=== PATIENT | male | born 1935 | race American Indian/Alaskan Native ===

== ENCOUNTER 2017-05-19 16:10 | Inpatient (IN) | payer MEDICARE ==
[2017-05-19] MEDS ORDERED: NACL 0.9% 1000 ML 1,000 ML IV ONE ×2 (17:17→18:51)
--- NOTE | 2017-05-19 17:27 | Emergency Department Report ---
ED General Adult HPI - General Chief complaint: Fall Stated complaint: BLEEDING / DISLODGED KEVIN Time Seen by Provider: 05/19/17 17:10 Source: family, EMS Mode of arrival: Stretcher Limitations: Altered Mental Status - History of Present Illness Initial comments: Patient is 82 years old male history of diabetes and BPH. Patient is living by himself. He called his daughter, that he is having generalized weakness and using falling a lot recently. Patient fell today and dislodged his Kevin catheter. He denied any fever, nausea or vomiting. - Related Data Allergies Allergy/AdvReac Type Severity Reaction Status Date / Time No Known Allergies Allergy Verified 05/19/17 16:46 ED Review of Systems ROS: Stated complaint: BLEEDING / DISLODGED KEVIN Other details as noted in HPI Comment: All other systems reviewed and negative Constitutional: denies: chills, fever Respiratory: denies: cough, orthopnea, shortness of breath, SOB with exertion, SOB at rest, stridor, wheezing Gastrointestinal: denies: abdominal pain, nausea, vomiting, diarrhea, constipation, hematemesis Genitourinary: denies: urgency, dysuria, frequency Neurological: weakness. denies: headache, numbness, paresthesias, confusion ED Past Medical Hx - Past Medical History Hx Diabetes: Yes Hx Renal Disease: Yes - Surgical History Additional Surgical History: KEVIN - Social History Smoking Status: Former Smoker Substance Use Type: None ED Physical Exam - General Limitations: Altered Mental Status General appearance: alert - Head Head exam: Present: atraumatic, normal inspection - Eye Eye exam: Present: normal appearance, PERRL - ENT ENT exam: Present: normal exam, normal orophraynx, mucous membranes moist - Neck Neck exam: Present: normal inspection, full ROM. Absent: meningismus - Respiratory Respiratory exam: Present: normal lung sounds bilaterally, decreased breath sounds. Absent: respiratory distress, wheezes, rales, rhonchi, accessory muscle use, prolonged expiratory - Cardiovascular Cardiovascular Exam: Present: regular rate, normal rhythm, normal heart sounds - GI/Abdominal GI/Abdominal exam: Present: soft, normal bowel sounds. Absent: distended, tenderness, guarding, rebound, rigid - Extremities Exam Extremities exam: Present: normal inspection, full ROM - Back Exam Back exam: Present: normal inspection, full ROM - Neurological Exam Neurological exam: Present: alert, oriented X3, CN II-XII intact - Skin Skin exam: Present: warm, intact, normal color ED Course Vital Signs 05/19/17 05/19/17 05/19/17 16:46 18:24 18:30 Temperature 97.5 F L Pulse Rate 97 H 118 H Respiratory 16 22 Rate Blood Pressure 129/68 133/76 126/77 Blood Pressure [Left] O2 Sat by Pulse 97 97 Oximetry 05/19/17 18:46 Temperature 98.9 F Pulse Rate 113 H Respiratory 23 Rate Blood Pressure Blood Pressure 139/67 [Left] O2 Sat by Pulse 98 Oximetry ED Medical Decision Making - Lab Data Result diagrams: 05/19/17 17:24 05/19/17 17:24 - EKG Data -: EKG Interpreted by Mt EKG shows normal: sinus rhythm Rate: tachycardia - EKG Data Interpretation: no acute changes - Medical Decision Making Discussed with Dr. Mg, I presented the patient to him, he agreed to admit the patient to his service. Critical care attestation.: If time is entered above; I have spent that time in minutes in the direct care of this critically ill patient, excluding procedure time. ED Disposition Clinical Impression: Acute renal failure, Sepsis Disposition: [id number] OP ADMIT IP TO THIS HOSP Is pt being admited?: Yes Condition: Stable Referrals: PRIMARY CARE, [Primary Care Provider] - 3-5 Days
[2017-05-19 17:59] LABS: Hematocrit 41.9 % (35.5-45.6); Hemoglobin 13.9 gm/dl (11.8-15.2); Mean Corpuscular HGB Conc 33 % (32-34); Mean Corpuscular Hemoglobin 29 pg (28-32); Mean Corpuscular Volume 89 fl (84-94); Platelet Count 242 K/mm3 (140-440); Red Blood Count 4.74 M/mm3 (3.65-5.03); Red Cell Distribution Width 14.6 % (13.2-15.2)
[2017-05-19 18:24] LABS: Albumin 2.8 g/dL (3.9-5); Calcium 8.1 mg/dL (8.4-10.2)
[2017-05-19 18:47] LABS: Basophils % (Manual) 0 % (0.0-1.8); Eosinophils % (Manual) 0 % (0.0-4.3); Total Cells Counted 100
[2017-05-19 18:48] LABS: Anisocytosis Few
[2017-05-19] MEDS ORDERED: SODIUM BICARBONATE 150 MEQ in NACL 0.9% 1000 ML 1,000 ML IV ONE ×2 (18:55→20:00)
[2017-05-19 18:57] LABS: Chol/HDL Ratio 5.8 %
[2017-05-19] MEDS ORDERED: ZOSYN/NS 3.375GM/50ML 3.375 GM/50 ML BAG IV SCH (19:00)
[2017-05-19] MEDS ORDERED: SODIUM BICARBONATE 150 MEQ in STERILE WATER 1,000 ML IV ONE (20:00)
[2017-05-19 21:12] LABS: Bilirubin,Urine NEG (Negative); Blood,Urine LG (Negative); Color,Urine Red (Yellow); Mucus,Urine 3+ /HPF; Urobilinogen,Urine < 2.0 mg/dL (<2.0)
[2017-05-19 21:13] LABS: RBC,Urine > 182.0 /HPF (0.0-6.0); WBC,Urine > 182.0 /HPF (0.0-6.0)
[2017-05-19 21:15] LABS: Creatinine,Urine < 4.2 mg/dL (0.1-20.0)
[2017-05-19] MEDS ORDERED: ZOSYN/NS 2.25 GM/50ML 2.25 GM/50 ML BAG IV SCH (22:00)
[2017-05-19] MEDS ORDERED: ZOFRAN IV PRN (22:15)
[2017-05-19] MEDS ORDERED: ROCEPHIN/NS 1 GM/50 ML 1 GM/50 ML BAG IV SCH (22:15)
--- NOTE | 2017-05-19 22:18 | History and Physical Report ---
History of Present Illness Date of examination: 05/19/17 History of present illness: This is a 82-year-old man with a history of hypertension, diabetes, BPH was brought to the emergency room for evaluation of generalized weakness and fall. He was found to have acute renal failure, is slowly and became dislodged and it was replaced in the emergency room. Urine is blood tinged. Patient is unable to give a history, unable to reach family. Review of systems very difficult to obtain PAST MEDICAL HISTORY: Hypertension, diabetes, BPH PAST SURGICAL HISTORY: Unknown SOCIAL HISTORY: Denies alcohol, tobacco, drugs FAMILY HISTORY: Unknown Medications and Allergies Allergies Allergy/AdvReac Type Severity Reaction Status Date / Time No Known Allergies Allergy Verified 05/19/17 16:46 Home Medications Medication Instructions Recorded Confirmed Last Taken Type No Known Home Medications [No 05/25/17 05/25/17 Unknown History Reported Home Medications] Active Meds: Active Medications Piperacillin Sod/Tazobactam Sod (Zosyn/Ns 2.25 Gm/50ml) 2.25 gm in 50 mls @ 100 mls/hr IV Q8HR EVY Sodium Chloride (Nacl 0.9% 1000 Ml) 1,000 mls @ 250 mls/hr IV ONCE ONE Stop: 05/19/17 22:50 Last Admin: 05/19/17 19:02 Dose: 250 mls/hr Sodium Bicarbonate 150 meq/ (Sterile Water) 1,150 mls @ 100 mls/hr IV ONCE.ED ONE Stop: 05/20/17 07:29 Last Admin: 05/19/17 21:20 Dose: 100 mls/hr Exam - Physical Exam Narrative exam: Gen. appearance: Patient lying in bed, no apparent distress HEENT: Normocephalic, atraumatic, pupils equally round and reactive to light, extraocular movement intact, and no sclericterus,. No JVD or thyromegaly or nodule,neck supple, no carotid bruit ,mucous membranes moist, no exudate or erythema Heart: S1, S2, regular rate and rhythm Lungs: Clear to auscultation bilaterally, breathing comfortable Abdomen: Positive bowel sounds, nontender, nondistended, no organomegaly Extremity1+ edema, no cyanosis, clubbing Skin: No rash, nodules, warm, dry Neuro: Oriented 3, cranial nerves II-12 intact, speech is fluent, motor and sensory intact - Constitutional Vitals: Temp Pulse Resp BP Pulse Ox 97.8 F 117 H 16 132/68 100 05/19/17 20:12 05/19/17 22:01 05/19/17 20:12 05/19/17 22:01 05/19/17 22:01 Results - Labs CBC & Chem 7: 05/26/17 06:05 05/26/17 06:05 Labs: Abnormal lab results 05/19/17 05/19/17 05/19/17 Range/Units 17:24 17:24 17:24 WBC 13.8 H (4.5-11.0) K/mm3 Seg Neuts % (Manual) 85.0 H (40.0-70.0) % Lymphocytes % (Manual) 6.0 L (13.4-35.0) % Monocytes % (Manual) 9.0 H (0.0-7.3) % Seg Neutrophils # Man 11.7 H (1.8-7.7) K/mm3 Lymphocytes # (Manual) 0.8 L (1.2-5.4) K/mm3 Monocytes # (Manual) 1.2 H (0.0-0.8) K/mm3 Sodium 133 L (137-145) mmol/L Chloride 90.1 L (98-107) mmol/L Carbon Dioxide 12 L (22-30) mmol/L BUN 99 H (9-20) mg/dL Creatinine 6.9 H (0.8-1.5) mg/dL Glucose 355 H (75-100) mg/dL Lactic Acid 3.40 H* (0.7-2.0) mmol/L Calcium 8.1 L (8.4-10.2) mg/dL Troponin T (0.00-0.029) ng/mL NT-Pro-B Natriuret Pep (0-900) pg/mL Albumin 2.8 L (3.9-5) g/dL Triglycerides (2-149) mg/dL HDL Cholesterol (40-59) mg/dL Urine pH (5.0-7.0) Urine WBC (Auto) (0.0-6.0) /HPF 05/19/17 05/19/17 05/19/17 Range/Units 17:24 17:24 20:12 WBC (4.5-11.0) K/mm3 Seg Neuts % (Manual) (40.0-70.0) % Lymphocytes % (Manual) (13.4-35.0) % Monocytes % (Manual) (0.0-7.3) % Seg Neutrophils # Man (1.8-7.7) K/mm3 Lymphocytes # (Manual) (1.2-5.4) K/mm3 Monocytes # (Manual) (0.0-0.8) K/mm3 Sodium (137-145) mmol/L Chloride (98-107) mmol/L Carbon Dioxide (22-30) mmol/L BUN (9-20) mg/dL Creatinine (0.8-1.5) mg/dL Glucose (75-100) mg/dL Lactic Acid (0.7-2.0) mmol/L Calcium (8.4-10.2) mg/dL Troponin T 0.181 H* (0.00-0.029) ng/mL NT-Pro-B Natriuret Pep 4670 H (0-900) pg/mL Albumin (3.9-5) g/dL Triglycerides 160 H (2-149) mg/dL HDL Cholesterol 26 L (40-59) mg/dL Urine pH 8.0 H (5.0-7.0) Urine WBC (Auto) > 182.0 H (0.0-6.0) /HPF Assessment and Plan Renal ultrasound pending Assessment Sepsis UTI Acute renal failure Abnormal cardiac enzymes BPH Hypertension Diabetes Plan Admit to medicine renal territory sales consultant to see the patient, he was started on a bicarbonate drip Start IV Rocephin, follow cultures Check cardiac enzymes, echo Check fingerstick initiate insulin sliding scale DVT prophylaxis Addendum Ultrasound shows moderate to severe hydronephrosis Urology consult, case d/w Dr Ponce, he requested CT abdomen/pelvis
[2017-05-19] MEDS ORDERED: NACL 0.45% 1000 ML 1,000 ML IV SCH (23:00)
[2017-05-19] MEDS: cefTRIAXone 1 GM in NACL 0.9% 20 ML IV SCH (23:02)
--- NOTE | 2017-05-19 23:16 | XRay Report ---
FINAL REPORT PROCEDURE: Portable upright AP view TECHNIQUE: Chest radiograph portable upright AP view. CPT 36818 HISTORY: Dyspnea COMPARISON: No prior studies are available for comparison. FINDINGS: The heart is magnified due to projection although appears to be enlarged. Pulmonary vasculature is not distended. Lungs are hypoventilated. There is mild blunting of the left lateral costophrenic angle suggesting small left effusion or pleural scarring. No focal infiltrates or masses are seen. No acute bony abnormalities are identified. IMPRESSION: Cardiomegaly. Small left effusion versus scarring left lateral costophrenic angle. Lungs are hypoventilated..
--- NOTE | 2017-05-20 00:03 | Ultrasound Report ---
FINAL REPORT EXAM: US RENAL BILAT HISTORY: Acute renal failure. TECHNIQUE: Routine sonographic evaluation was obtained of the kidneys and bladder. FINDINGS: The right kidney measures 14 cm x 5.7 cm x 10.6 cm. The cortical thickness is 2.6 cm. There are 2 cortical cysts in the lateral and mid aspect of the right kidney the larger measuring 4 cm x 4.2 cm x 6.3 cm. There is moderate right-sided hydronephrosis with the proximal right ureter measuring 16.2 mm in diameter. The left kidney measures 12.9 cm from pole to pole with cortical thickness of 1.4 cm. There is extensive shadowing calcifications in the left kidney without evidence of hydronephrosis. The bladder is normal in size. The bladder wall is hyperechoic suggesting calcifications. There is a Valle catheter in the bladder. IMPRESSION: Moderate to severe right-sided hydronephrosis. Two cortical cyst in the right kidney as described. Extensive shadowing calcifications in left kidney. No evidence of left-sided hydronephrosis. The bladder wall shows extensive hyperechoic foci suggesting calcifications.
[2017-05-20] MEDS ORDERED: LOPRESSOR IV ONE (02:27)
[2017-05-20] MEDS: TYLENOL PO PRN (02:35)
[2017-05-20 06:44] LABS: Calcium 7.6 mg/dL (8.4-10.2)
--- NOTE | 2017-05-20 07:27 | Consultation ---
History of Present Illness - Reason for Consult Consult date: 05/20/17 acute renal failure, hypokalemia, metabolic acidosis - History of Present Illness The patient is a 82-year-old male with a history of Hypertension, Diabetes BPH and chronic indwelling beltre was brought to the emergency room for evaluation of generalized weakness and fall. Unable to obtain any history from the patient at this time and there was no family member available at the bedside. Information obtained from previous documentation. He was found to have acute kidney injury with creatinine of 6.9 and bicarb 12. Prior renal function is unknown. The beltre was changed in the ER. Past History Past Medical History: diabetes, hypertension, other (BPH) Medications and Allergies Allergies Allergy/AdvReac Type Severity Reaction Status Date / Time No Known Allergies Allergy Verified 05/19/17 16:46 Active Meds: Active Medications Acetaminophen (Tylenol) 650 mg PO Q4H PRN PRN Reason: Pain MILD(1-3)/Fever >100.5/VIERA Last Admin: 05/20/17 02:35 Dose: 650 mg Sodium Bicarbonate 150 meq/ (Sterile Water) 1,150 mls @ 100 mls/hr IV ONCE.ED ONE Stop: 05/20/17 07:29 Last Admin: 05/19/17 21:20 Dose: 100 mls/hr Sodium Chloride (Nacl 0.45% 1000 Ml) 1,000 mls @ 75 mls/hr IV DIRECT EVY Last Admin: 05/19/17 23:03 Dose: 75 mls/hr Ceftriaxone Sodium 1 gm/ (Sodium Chloride) 20 mls @ 2 mls/min IV Q24HR@2200 EVY Last Admin: 05/19/17 23:02 Dose: 2 mls/min Ondansetron HCl (Zofran) 4 mg IV Q8H PRN PRN Reason: Nausea And Vomiting Review of Systems ROS unobtainable: due to mental status Exam - Vital Signs Vital signs: Vital Signs Temp Pulse Resp BP Pulse Ox 97.5 F L 97 H 16 129/68 97 05/19/17 16:46 05/19/17 16:46 05/19/17 16:46 05/19/17 16:46 05/19/17 16:46 - General Appearance General appearance: well-developed, appears stated age, other (no distress) EENT: ATNC, PERRL, hearing intact Neck: Present: neck supple, trachea midline Respiratory: Clear to Ascultation Heart: regular, S1S2, no murmurs Gastrointestinal: Present: normoactive bowel sounds. Absent: tenderness Integumentary: no rash, chronic venous stasis Neurologic: confused, disoriented, other (able to move all 4 extremities) Musculoskeletal: Present: other (bialteral LE edema noted) Psychiatric: cooperative Results - Lab Results 05/19/17 17:24 05/20/17 05:52 Most recent lab results Calcium 7.6 mg/dL (8.4-10.2) L 05/20/17 05:52 Urine Creatinine < 4.2 mg/dL (0.1-20.0) 05/19/17 20:12 Urine Sodium 127 mmol/L 05/19/17 20:12 - Image Kidney/bladder ultrasound: report reviewed Assessment and Plan 1. Acute kidney injury: Likely from combination of dislodged Beltre and volume depletion. Very likely patient has some degree of CKD. Continue IV fluids. Renal prognosis guarded. 2. Metabolic acidosis: Continue IV bicarbonate. 3. Right sided Hydronephrosis: Urology consulted. 4. UTI / Urosepsis: On Ceftriaxone. 5. Paroxysmal atrial fibrillation/atrial flutter with RVR. 6. DM.
--- NOTE | 2017-05-20 07:50 | Cat Scan Report ---
CT abdomen and pelvis without contrast: Transverse images were obtained from the low chest and ischium with coronal and sagittal 2-D reformatted images. The visualized lung bases are clear. Coronary vascular calcifications are noted. Scattered calcifications are noted in the spleen most likely from prior granulomatous infection. Some scattered calcifications also noted in the partially fatty replaced pancreas. The unopacified bowel and mesentery appear grossly normal. There is a 5.6 cm cyst involving the right kidney with a daughter cyst laterally. The there is mild hydroureter of the right collecting system. There is moderate hydroureter of the left collecting system with mild dilatation of the renal pelvis. There is gas in both ureters. Imaging of the bladder demonstrates an irregularly thickened wall with a gas/fluid layer. Layering calcifications are noted centrally and on the dependent wall. The bones are generally demineralized. Significant degenerative changes are present in multiple levels of the lumbar spine. Impressions: The findings are consistent with a gas-forming infection involving the urinary tract. No obvious obstructive uropathy.
--- NOTE | 2017-05-20 09:11 | Progress Note ---
Assessment and Plan Sepsis UTI Hydronephrosis right sided Acute renal failure Abnormal cardiac enzymes BPH Hypertension Diabetes AFib/ Flutter Gross hematuraia with indwelling Valle cather medhat could not be removed in the ER Plan Renal consulted to see the patient, he was started on a bicarbonate drip IV Rocephin, follow blood and urine cultures Check cardiac enzymes, echo SSI with consistent CHO diet Discussed with pt daughter at length Commence pt on Amiodorone. Cardiogy consulted. D/w Dr Costello Urology consulted for Urinary obstruction, inability to remove Valle's and hydroneophrosis DVT prophylaxis SCD only. Hold anticoagulation b/c gross hematuria Subjective Date of service: 05/20/17 Principal diagnosis: sepsis, ARF Interval history: no fever, chest pain or shortness of breath Objective - Constitutional Vitals: Vital Signs - 12hr 05/19/17 05/19/17 05/19/17 21:15 21:30 21:45 Temperature Pulse Rate 116 H 124 H 116 H Respiratory Rate Blood Pressure 130/64 129/74 129/74 Blood Pressure [Left] O2 Sat by Pulse 98 100 98 Oximetry 05/19/17 05/19/17 05/19/17 22:01 22:07 22:11 Temperature Pulse Rate 117 H 111 H 112 H Respiratory Rate Blood Pressure 132/68 132/68 132/68 Blood Pressure [Left] O2 Sat by Pulse 100 98 97 Oximetry 05/19/17 05/19/17 05/19/17 22:21 22:30 22:41 Temperature Pulse Rate 111 H 159 H 112 H Respiratory Rate Blood Pressure 138/63 148/70 148/70 Blood Pressure [Left] O2 Sat by Pulse 80 L 97 99 Oximetry 05/19/17 05/19/17 05/19/17 22:51 23:00 23:03 Temperature 97.2 F L Pulse Rate 110 H 116 H 113 H Respiratory 16 Rate Blood Pressure 155/91 137/74 Blood Pressure 155/91 [Left] O2 Sat by Pulse 98 99 100 Oximetry 05/19/17 05/20/17 05/20/17 23:11 02:36 03:00 Temperature 98.5 F Pulse Rate 131 H 131 H Respiratory Rate Blood Pressure 137/74 152/75 Blood Pressure 152/75 [Left] O2 Sat by Pulse 99 Oximetry 05/20/17 05/20/17 05/20/17 03:40 03:58 07:07 Temperature 98.4 F Pulse Rate 113 H 120 H 113 H Respiratory Rate Blood Pressure 115/47 Blood Pressure 110/58 [Left] O2 Sat by Pulse 97 Oximetry 05/20/17 07:38 Temperature 98.0 F Pulse Rate 121 H Respiratory 20 Rate Blood Pressure 113/60 Blood Pressure [Left] O2 Sat by Pulse 96 Oximetry General appearance: Present: no acute distress, well-nourished - EENT Eyes: PERRL, EOM intact - Neck Neck: supple, normal ROM - Respiratory Respiratory effort: normal Respiratory: bilateral: CTA - Cardiovascular Rhythm: regular Heart Sounds: Present: S1 & S2. Absent: gallop, rub Extremities: pulses intact, No edema, normal color, Full ROM - Gastrointestinal General gastrointestinal: Present: soft, non-tender, non-distended, normal bowel sounds - Integumentary Integumentary: clear, warm, dry - Musculoskeletal Musculoskeletal: 1, strength equal bilaterally - Neurologic Neurologic: moves all extremities - Psychiatric Psychiatric: memory intact, appropriate mood/affect, intact judgment & insight - Labs CBC & Chem 7: 05/19/17 17:24 05/20/17 05:52 Labs: Abnormal lab results 05/19/17 05/19/17 05/19/17 Range/Units 17:24 17:24 17:24 WBC 13.8 H (4.5-11.0) K/mm3 Seg Neuts % (Manual) 85.0 H (40.0-70.0) % Lymphocytes % (Manual) 6.0 L (13.4-35.0) % Monocytes % (Manual) 9.0 H (0.0-7.3) % Seg Neutrophils # Man 11.7 H (1.8-7.7) K/mm3 Lymphocytes # (Manual) 0.8 L (1.2-5.4) K/mm3 Monocytes # (Manual) 1.2 H (0.0-0.8) K/mm3 Sodium 133 L (137-145) mmol/L Potassium (3.6-5.0) mmol/L Chloride 90.1 L (98-107) mmol/L Carbon Dioxide 12 L (22-30) mmol/L BUN 99 H (9-20) mg/dL Creatinine 6.9 H (0.8-1.5) mg/dL Glucose 355 H (75-100) mg/dL Lactic Acid 3.40 H* (0.7-2.0) mmol/L Calcium 8.1 L (8.4-10.2) mg/dL Total Creatine Kinase (55-170) units/L Troponin T (0.00-0.029) ng/mL NT-Pro-B Natriuret Pep (0-900) pg/mL Albumin 2.8 L (3.9-5) g/dL Triglycerides (2-149) mg/dL HDL Cholesterol (40-59) mg/dL Urine pH (5.0-7.0) Urine WBC (Auto) (0.0-6.0) /HPF 05/19/17 05/19/17 05/19/17 Range/Units 17:24 17:24 20:12 WBC (4.5-11.0) K/mm3 Seg Neuts % (Manual) (40.0-70.0) % Lymphocytes % (Manual) (13.4-35.0) % Monocytes % (Manual) (0.0-7.3) % Seg Neutrophils # Man (1.8-7.7) K/mm3 Lymphocytes # (Manual) (1.2-5.4) K/mm3 Monocytes # (Manual) (0.0-0.8) K/mm3 Sodium (137-145) mmol/L Potassium (3.6-5.0) mmol/L Chloride (98-107) mmol/L Carbon Dioxide (22-30) mmol/L BUN (9-20) mg/dL Creatinine (0.8-1.5) mg/dL Glucose (75-100) mg/dL Lactic Acid (0.7-2.0) mmol/L Calcium (8.4-10.2) mg/dL Total Creatine Kinase (55-170) units/L Troponin T 0.181 H* (0.00-0.029) ng/mL NT-Pro-B Natriuret Pep 4670 H (0-900) pg/mL Albumin (3.9-5) g/dL Triglycerides 160 H (2-149) mg/dL HDL Cholesterol 26 L (40-59) mg/dL Urine pH 8.0 H (5.0-7.0) Urine WBC (Auto) > 182.0 H (0.0-6.0) /HPF 05/20/17 Range/Units 05:52 WBC (4.5-11.0) K/mm3 Seg Neuts % (Manual) (40.0-70.0) % Lymphocytes % (Manual) (13.4-35.0) % Monocytes % (Manual) (0.0-7.3) % Seg Neutrophils # Man (1.8-7.7) K/mm3 Lymphocytes # (Manual) (1.2-5.4) K/mm3 Monocytes # (Manual) (0.0-0.8) K/mm3 Sodium 130 L (137-145) mmol/L Potassium 3.3 L (3.6-5.0) mmol/L Chloride 91.8 L (98-107) mmol/L Carbon Dioxide 14 L (22-30) mmol/L BUN 102 H (9-20) mg/dL Creatinine 7.5 H (0.8-1.5) mg/dL Glucose 263 H (75-100) mg/dL Lactic Acid (0.7-2.0) mmol/L Calcium 7.6 L (8.4-10.2) mg/dL Total Creatine Kinase 196 H (55-170) units/L Troponin T (0.00-0.029) ng/mL NT-Pro-B Natriuret Pep (0-900) pg/mL Albumin (3.9-5) g/dL Triglycerides (2-149) mg/dL HDL Cholesterol (40-59) mg/dL Urine pH (5.0-7.0) Urine WBC (Auto) (0.0-6.0) /HPF
[2017-05-20] MEDS ORDERED: LOVENOX SUB-Q SCH (10:00)
[2017-05-20] MEDS ORDERED: K-DUR PO ONE (11:00)
[2017-05-20] MEDS ORDERED: CORDARONE PO SCH (12:00)
[2017-05-20] MEDS: SODIUM BICARBONATE 150 MEQ in STERILE WATER 1,000 ML IV SCH (13:20)
--- NOTE | 2017-05-20 13:55 | Consultation ---
History of Present Illness Consult date: 05/20/17 Requesting physician: KARO HART Consult reason: other (svt) History of present illness: The pt is an 82 YO male with a past medical history significant for DM, CKD, BPH and chronic indwelling Valle catheter. He is previously unknown to our practice. He presented with c/o generalized weakness and hematuria. Per pt's daughter, pt is living by himiself. Pt fell out of his bed yesterday due to weakness and was then noted to develop hematuria so they called EMS. Following arrival, pt was noted to have renal failure, mod to severe right-sided hydronephrosis, metabolic acidosis, UTI, sepsis. Pt also noted to have paroxysmal AFib/AFlutter with RVR on telemetry and thus cardiology has been consulted. Echo is pending. Pt denies any prior history of cardiac arrhythmias or any prior cardiac w/u. On evaluation, pt denies any chest pain, palpitations , n/v, diaphoresis, dizziness or syncope. Past History Past Medical History: diabetes, other (BPH, CKD, chronic Valle) Social history: Lives alone. denies: smoking, alcohol abuse, prescription drug abuse Medications and Allergies Allergies Allergy/AdvReac Type Severity Reaction Status Date / Time No Known Allergies Allergy Verified 05/19/17 16:46 Active Meds: Active Medications Acetaminophen (Tylenol) 650 mg PO Q4H PRN PRN Reason: Pain MILD(1-3)/Fever >100.5/[facility] Last Admin: 05/20/17 02:35 Dose: 650 mg Amiodarone HCl (Cordarone) 200 mg PO QDAY [facility] Last Admin: 05/20/17 13:12 Dose: 200 mg Ceftriaxone Sodium 1 gm/ (Sodium Chloride) 20 mls @ 2 mls/min IV Q24HR@2200 [facility] Last Admin: 05/19/17 23:02 Dose: 2 mls/min Sodium Bicarbonate 150 meq/ (Sterile Water) 1,150 mls @ 100 mls/hr IV DIRECT [facility] Last Admin: 05/20/17 13:20 Dose: 100 mls/hr Ondansetron HCl (Zofran) 4 mg IV Q8H PRN PRN Reason: Nausea And Vomiting Review of Systems Constitutional: weakness, no weight loss, no weight gain, no fever, no chills, no sweats Ears, nose, mouth and throat: no ear pain, no nose pain, no sinus pressure, no sinus pain Cardiovascular: no chest pain, no orthopnea, no palpitations, no rapid/ irregular heart beat, no edema, no syncope, no lightheadedness, no shortness of breath, no dyspnea on exertion, no high blood pressure Respiratory: no cough, no shortness of breath, no dyspnea on exertion, no congestion, no wheezing, no pain on inspiration Gastrointestinal: no abdominal pain, no nausea, no vomiting, no diarrhea, no constipation, no change in bowel habits Genitourinary Male: hematuria, no flank pain Musculoskeletal: no neck stiffness, no neck pain, no shooting arm pain, no arm numbness/tingling, no low back pain, no shooting leg pain, no leg numbness/ tingling, no redness of joints Integumentary: no rash, no pruritis, no redness, no sores, no wounds Neurological: no head injury, no paralysis, no weakness, no parathesias, no numbness, no tingling, no seizures, no syncope Psychiatric: no anxiety Endocrine: no cold intolerance, no heat intolerance Hematologic/Lymphatic: no easy bruising, no easy bleeding, no lymphadenopathy Allergic/Immunologic: no urticaria, no wheezing, no persistent infections Physical Examination Vital Signs Temp Pulse Resp BP Pulse Ox 97.5 F L 97 H 16 129/68 97 05/19/17 16:46 05/19/17 16:46 05/19/17 16:46 05/19/17 16:46 05/19/17 16:46 General appearance: no acute distress HEENT: Positive: PERRL, Normocephaly, Mucus Membranes Moist Neck: Positive: neck supple, trachea midline Cardiac: Positive: irregularly irregular, S1/S2, Tachycardia Lungs: Positive: Decreased Breath Sounds Neuro: Positive: Grossly Intact Abdomen: Positive: Soft. Negative: Tender Skin: Positive: Clear. Negative: Rash, Wound Musculoskeletal: No Fluid Collection, No Pain, Normal Range of Motion Extremities: Absent: edema Results 05/19/17 17:24 05/20/17 05:52 Cardiac Enzymes 05/19/17 Range/Units 17:24 AST 17 (5-40) units/L Lipids 05/19/17 Range/Units 17:24 Triglycerides 160 H (2-149) mg/dL Cholesterol 151 (50-199) mg/dL HDL Cholesterol 26 L (40-59) mg/dL Cholesterol/HDL Ratio 5.80 % CBC 05/19/17 Range/Units 17:24 WBC 13.8 H (4.5-11.0) K/mm3 RBC 4.74 (3.65-5.03) M/mm3 Hgb 13.9 (11.8-15.2) gm/dl Hct 41.9 (35.5-45.6) % Plt Count 242 (140-440) K/mm3 Comprehensive Metabolic Panel 05/19/17 05/20/17 Range/Units 17:24 05:52 Sodium 133 L 130 L (137-145) mmol/L Potassium 4.0 3.3 L (3.6-5.0) mmol/L Chloride 90.1 L 91.8 L (98-107) mmol/L Carbon Dioxide 12 L 14 L (22-30) mmol/L BUN 99 H 102 H (9-20) mg/dL Creatinine 6.9 H 7.5 H (0.8-1.5) mg/dL Glucose 355 H 263 H (75-100) mg/dL Calcium 8.1 L 7.6 L (8.4-10.2) mg/dL AST 17 (5-40) units/L ALT 13 (7-56) units/L Alkaline Phosphatase 59 (35-129) units/L Total Protein 6.5 (6.3-8.2) g/dL Albumin 2.8 L (3.9-5) g/dL - Imaging and Cardiology Echo: pending EKG: report reviewed, image reviewed EKG interpretations - Telemetry EKG Rhythm: Atrial Fibrillation - EKG Supraventricular dysrhythmia: atrial flutter Assessment and Plan Assessment: Paroxysmal atrial fibrillation/atrial flutter with RVR Acute renal failure on CKD Elevated troponin - ECG with no acute ischemic changes; pt denies chest pain; trending downwards; currently nonspecific Mod to severe right-sided hydronephrosis Generalized weakness UTI / sepsis Metabolic acidosis Hematuria - H/H currently stable BPH Chronic indwelling Valle Hypokalemia Plan: Check thyroid profile and serum Mg. Await echo. Cont to trend Patsy. Initiate amiodarone gtt. Cont tele. No systemic anticoagulation at this time in regards to AFib/AFlutter in setting of gross hematuria. Will readdress prior to hospital discharge. IV abx per primary. Assessment and plan reviewed with pt and pt's daughter at bedside. The patient has been seen in conjunction with Dr. Costello who agrees with the assessment and plan of care.
--- NOTE | 2017-05-20 14:36 | Progress Note ---
Assessment and Plan catheter changed lots of debris on cath poorly compliant Subjective Date of service: 05/20/17 Principal diagnosis: sepsis, ARF Objective - Constitutional Vitals: Vital Signs - 12hr 05/20/17 05/20/17 05/20/17 02:36 03:00 03:40 Temperature 98.5 F 98.4 F Pulse Rate 131 H 131 H 113 H Respiratory Rate Blood Pressure 152/75 Blood Pressure 152/75 110/58 [Left] O2 Sat by Pulse Oximetry 05/20/17 05/20/17 05/20/17 03:58 07:07 07:38 Temperature 98.0 F Pulse Rate 120 H 113 H 121 H Respiratory 20 Rate Blood Pressure 115/47 113/60 Blood Pressure [Left] O2 Sat by Pulse 97 96 Oximetry 05/20/17 05/20/17 09:55 12:14 Temperature 97.6 F Pulse Rate 93 H Respiratory 20 Rate Blood Pressure Blood Pressure 113/60 [Left] O2 Sat by Pulse 96 97 Oximetry General appearance: Present: no acute distress - Respiratory Respiratory effort: normal - Gastrointestinal General gastrointestinal: Present: soft, non-tender - Labs CBC & Chem 7: 05/19/17 17:24 05/20/17 05:52 Labs: Abnormal lab results 05/19/17 05/19/17 05/19/17 Range/Units 17:24 17:24 17:24 WBC 13.8 H (4.5-11.0) K/mm3 Seg Neuts % (Manual) 85.0 H (40.0-70.0) % Lymphocytes % (Manual) 6.0 L (13.4-35.0) % Monocytes % (Manual) 9.0 H (0.0-7.3) % Seg Neutrophils # Man 11.7 H (1.8-7.7) K/mm3 Lymphocytes # (Manual) 0.8 L (1.2-5.4) K/mm3 Monocytes # (Manual) 1.2 H (0.0-0.8) K/mm3 Sodium 133 L (137-145) mmol/L Potassium (3.6-5.0) mmol/L Chloride 90.1 L (98-107) mmol/L Carbon Dioxide 12 L (22-30) mmol/L BUN 99 H (9-20) mg/dL Creatinine 6.9 H (0.8-1.5) mg/dL Glucose 355 H (75-100) mg/dL Lactic Acid 3.40 H* (0.7-2.0) mmol/L Calcium 8.1 L (8.4-10.2) mg/dL Total Creatine Kinase (55-170) units/L Troponin T (0.00-0.029) ng/mL NT-Pro-B Natriuret Pep (0-900) pg/mL Albumin 2.8 L (3.9-5) g/dL Triglycerides (2-149) mg/dL HDL Cholesterol (40-59) mg/dL Urine pH (5.0-7.0) Urine WBC (Auto) (0.0-6.0) /HPF 05/19/17 05/19/17 05/19/17 Range/Units 17:24 17:24 20:12 WBC (4.5-11.0) K/mm3 Seg Neuts % (Manual) (40.0-70.0) % Lymphocytes % (Manual) (13.4-35.0) % Monocytes % (Manual) (0.0-7.3) % Seg Neutrophils # Man (1.8-7.7) K/mm3 Lymphocytes # (Manual) (1.2-5.4) K/mm3 Monocytes # (Manual) (0.0-0.8) K/mm3 Sodium (137-145) mmol/L Potassium (3.6-5.0) mmol/L Chloride (98-107) mmol/L Carbon Dioxide (22-30) mmol/L BUN (9-20) mg/dL Creatinine (0.8-1.5) mg/dL Glucose (75-100) mg/dL Lactic Acid (0.7-2.0) mmol/L Calcium (8.4-10.2) mg/dL Total Creatine Kinase (55-170) units/L Troponin T 0.181 H* (0.00-0.029) ng/mL NT-Pro-B Natriuret Pep 4670 H (0-900) pg/mL Albumin (3.9-5) g/dL Triglycerides 160 H (2-149) mg/dL HDL Cholesterol 26 L (40-59) mg/dL Urine pH 8.0 H (5.0-7.0) Urine WBC (Auto) > 182.0 H (0.0-6.0) /HPF 05/20/17 05/20/17 Range/Units 05:52 13:12 WBC (4.5-11.0) K/mm3 Seg Neuts % (Manual) (40.0-70.0) % Lymphocytes % (Manual) (13.4-35.0) % Monocytes % (Manual) (0.0-7.3) % Seg Neutrophils # Man (1.8-7.7) K/mm3 Lymphocytes # (Manual) (1.2-5.4) K/mm3 Monocytes # (Manual) (0.0-0.8) K/mm3 Sodium 130 L (137-145) mmol/L Potassium 3.3 L (3.6-5.0) mmol/L Chloride 91.8 L (98-107) mmol/L Carbon Dioxide 14 L (22-30) mmol/L BUN 102 H (9-20) mg/dL Creatinine 7.5 H (0.8-1.5) mg/dL Glucose 263 H (75-100) mg/dL Lactic Acid (0.7-2.0) mmol/L Calcium 7.6 L (8.4-10.2) mg/dL Total Creatine Kinase 196 H (55-170) units/L Troponin T 0.124 H* D (0.00-0.029) ng/mL NT-Pro-B Natriuret Pep (0-900) pg/mL Albumin (3.9-5) g/dL Triglycerides (2-149) mg/dL HDL Cholesterol (40-59) mg/dL Urine pH (5.0-7.0) Urine WBC (Auto) (0.0-6.0) /HPF
[2017-05-20] MEDS: CORDARONE 900 MG in D5W 482 ML IV SCH (17:00)
--- NOTE | 2017-05-20 19:39 | Consultation ---
HISTORY OF PRESENT ILLNESS: The patient is an 82-year-old gentleman who is here with his daughter. He had a catheter that they could not take out. There was some gas in the ureters, but he has a Valle and they tried to change it and tried to deflate the balloon. According to his daughter, he refused definitive treatment for the bladder outlet obstruction and was late noncompliant for catheter change. He is down at echo now. He has a renal cyst, right kidney, and hydroureteronephrosis, more on the left than the right. There is a thick bladder wall with some gas in the bladder, probably from irrigation or just chronic catheter that has not been changed with possible gas forming organism. He is not febrile at this point. His urine is blood-tinged dark and he is afebrile. PAST MEDICAL HISTORY: Apparently, he has had a catheter for 5 years, poorly compliant. He refuses manipulation. PAST SURGICAL HISTORY: Hypertension, diabetes, bladder outlet obstruction, and urinary retention. PAST SURGICAL HISTORY: Denied. SOCIAL HISTORY: Negative. FAMILY HISTORY: Noncontributory. ALLERGIES: Negative. REVIEW OF SYSTEMS: He looks as if he has had a little bit of a stroke. He slurred some of his speech. PHYSICAL EXAMINATION: GENERAL: He is awake. He is in no distress. ABDOMEN: Moderately overweight, soft, and nondistended. GENITALIA: He has a little blood around the catheter. The urine is khalil colored draining and the balloon was in the bladder with some calcium around it as can be seen on ultrasound. GENITALIA: He has moderately atrophic left testes, mild on the right. No hernias. RECTAL: I could not get him to turn over. He is undergoing an echo. IMPRESSION: Urinary retention. Catheter has not been changed. We were able to deflate the balloon and twist out the catheter covered with calcifications. So, he may have some sort of gas forming organism. There was a Proteus type of smell and Escherichia coli as well likely forming gas, may be anaerobes. A #20 [place] catheter was easily changed, the more difficult was removing the catheter. He tolerated the procedure well. PLAN: Follow up after echo. He refuses any type of manipulation at this point. So, we just changed the catheter hopefully, that his creatinine will get better now. JOB# [id number] NORMA/NTS
[2017-05-20] MEDS: cefTRIAXone 1 GM in NACL 0.9% 20 ML IV SCH (22:06)
[2017-05-21 07:21] LABS: Hematocrit 35.4 % (35.5-45.6); Mean Corpuscular HGB Conc 34 % (32-34); Mean Corpuscular Hemoglobin 29 pg (28-32); Mean Corpuscular Volume 86 fl (84-94); Platelet Count 201 K/mm3 (140-440); Red Cell Distribution Width 14.5 % (13.2-15.2)
--- NOTE | 2017-05-21 07:22 | Progress Note ---
Subjective Date of service: 05/21/17 Principal diagnosis: sepsis, ARF Objective - Vital Signs Vital signs: Vital Signs - 12hr 05/20/17 05/20/17 05/20/17 20:00 20:20 22:03 Temperature 98.5 F Pulse Rate 139 H 106 H Respiratory 20 Rate Blood Pressure 132/76 O2 Sat by Pulse 96 97 Oximetry 05/21/17 05/21/17 05/21/17 01:02 04:10 06:49 Temperature 97.4 F L 97.3 F L Pulse Rate 77 110 H 85 Respiratory 20 20 Rate Blood Pressure 148/88 179/104 172/91 O2 Sat by Pulse 98 97 98 Oximetry - Lab 05/19/17 17:24 05/20/17 05:52 Most recent lab results Calcium 7.6 mg/dL (8.4-10.2) L 05/20/17 05:52 Magnesium 1.70 mg/dL (1.7-2.3) 05/20/17 15:28 Urine Creatinine < 4.2 mg/dL (0.1-20.0) 05/19/17 20:12 Urine Sodium 127 mmol/L 05/19/17 20:12
[2017-05-21 07:31] LABS: Creatine Kinase MB 4.4 ng/mL (0.0-4.0)
[2017-05-21 07:33] LABS: INR 1.21 (0.87-1.13)
[2017-05-21 07:37] LABS: Albumin 1.8 g/dL (3.9-5); Calcium 7.3 mg/dL (8.4-10.2)
--- NOTE | 2017-05-21 09:25 | Event Note ---
Date: 05/21/17 Per daughter patient is being followed by . Informed to follow this patient.
[2017-05-21 09:39] LABS: Basophils % (Manual) 0 % (0.0-1.8); RBC Morphology Normal; Total Cells Counted 100
--- NOTE | 2017-05-21 09:56 | Progress Note ---
Assessment and Plan Sepsis from Gram negative rods UTI Hydronephrosis right sided Acute renal failure Abnormal cardiac enzymes BPH Hypertension Diabetes AFib/ Flutter Gross hematuraia with indwelling Valle catherter changed by Urologist 05/20/17 Plan Renal consulted to see the patient, he was started on a bicarbonate drip IV Rocephin, follow blood and urine cultures Check cardiac enzymes, echo SSI with consistent CHO diet Discussed with pt daughter at length Commence pt on Amiodorone. Cardiogy consulted. D/w Dr Costello Urology consulted for Urinary obstruction, inability to remove Valle's and hydroneophrosis DVT prophylaxis SCD only. Hold anticoagulation b/c gross hematuria Subjective Date of service: 05/21/17 Principal diagnosis: sepsis, ARF, Afib Interval history: no fever, chest pain or shortness of breath Objective - Constitutional Vitals: Vital Signs - 12hr 05/20/17 05/21/17 05/21/17 22:03 01:02 04:10 Temperature 97.4 F L 97.3 F L Pulse Rate 77 110 H Respiratory 20 20 Rate Blood Pressure 148/88 179/104 Blood Pressure [Left] O2 Sat by Pulse 97 98 97 Oximetry 05/21/17 05/21/17 06:49 07:47 Temperature 97.8 F Pulse Rate 85 98 H Respiratory 18 Rate Blood Pressure 172/91 Blood Pressure 153/72 [Left] O2 Sat by Pulse 98 97 Oximetry General appearance: Present: no acute distress, well-nourished - EENT Eyes: PERRL, EOM intact - Neck Neck: supple, normal ROM - Respiratory Respiratory effort: normal Respiratory: bilateral: CTA - Cardiovascular Rhythm: regular Heart Sounds: Present: S1 & S2. Absent: gallop, rub Extremities: pulses intact, No edema, normal color, Full ROM - Gastrointestinal General gastrointestinal: Present: soft, non-tender, non-distended, normal bowel sounds - Genitourinary Male genitourinary: normal - Integumentary Integumentary: clear, warm, dry - Musculoskeletal Musculoskeletal: 1, strength equal bilaterally - Neurologic Neurologic: moves all extremities - Psychiatric Psychiatric: memory intact, appropriate mood/affect, intact judgment & insight - Labs CBC & Chem 7: 05/21/17 06:27 05/21/17 06:27 Labs: Abnormal lab results 05/20/17 05/20/17 05/20/17 Range/Units 11:48 13:12 17:07 Hct (35.5-45.6) % Seg Neuts % (Manual) (40.0-70.0) % Lymphocytes % (Manual) (13.4-35.0) % Monocytes % (Manual) (0.0-7.3) % Seg Neutrophils # Man (1.8-7.7) K/mm3 Monocytes # (Manual) (0.0-0.8) K/mm3 PT (12.2-14.9) Sec. INR (0.87-1.13) Sodium (137-145) mmol/L Potassium (3.6-5.0) mmol/L Chloride (98-107) mmol/L Carbon Dioxide (22-30) mmol/L BUN (9-20) mg/dL Creatinine (0.8-1.5) mg/dL Glucose (75-100) mg/dL POC Glucose 276 H 382 H (70-105) Calcium (8.4-10.2) mg/dL Phosphorus (2.5-4.5) mg/dL CK-MB (CK-2) (0.0-4.0) ng/mL Troponin T 0.124 H* D (0.00-0.029) ng/mL Total Protein (6.3-8.2) g/dL Albumin (3.9-5) g/dL PTH Intact (15-65) pg/mL 05/20/17 05/21/17 05/21/17 Range/Units 21:55 06:27 06:27 Hct 35.4 L D (35.5-45.6) % Seg Neuts % (Manual) 77.0 H (40.0-70.0) % Lymphocytes % (Manual) 11.0 L (13.4-35.0) % Monocytes % (Manual) 11.0 H (0.0-7.3) % Seg Neutrophils # Man 8.4 H (1.8-7.7) K/mm3 Monocytes # (Manual) 1.2 H (0.0-0.8) K/mm3 PT (12.2-14.9) Sec. INR (0.87-1.13) Sodium 135 L (137-145) mmol/L Potassium 3.4 L (3.6-5.0) mmol/L Chloride 90.8 L (98-107) mmol/L Carbon Dioxide 17 L (22-30) mmol/L BUN 113 H (9-20) mg/dL Creatinine 7.5 H (0.8-1.5) mg/dL Glucose 333 H (75-100) mg/dL POC Glucose (70-105) Calcium 7.3 L (8.4-10.2) mg/dL Phosphorus 7.00 H (2.5-4.5) mg/dL CK-MB (CK-2) 4.4 H (0.0-4.0) ng/mL Troponin T 0.131 H* 0.113 H* (0.00-0.029) ng/mL Total Protein 6.2 L (6.3-8.2) g/dL Albumin 1.8 L (3.9-5) g/dL PTH Intact (15-65) pg/mL 05/21/17 05/21/17 Range/Units 06:27 06:27 Hct (35.5-45.6) % Seg Neuts % (Manual) (40.0-70.0) % Lymphocytes % (Manual) (13.4-35.0) % Monocytes % (Manual) (0.0-7.3) % Seg Neutrophils # Man (1.8-7.7) K/mm3 Monocytes # (Manual) (0.0-0.8) K/mm3 PT 16.0 H (12.2-14.9) Sec. INR 1.21 H (0.87-1.13) Sodium (137-145) mmol/L Potassium (3.6-5.0) mmol/L Chloride (98-107) mmol/L Carbon Dioxide (22-30) mmol/L BUN (9-20) mg/dL Creatinine (0.8-1.5) mg/dL Glucose (75-100) mg/dL POC Glucose (70-105) Calcium (8.4-10.2) mg/dL Phosphorus (2.5-4.5) mg/dL CK-MB (CK-2) (0.0-4.0) ng/mL Troponin T (0.00-0.029) ng/mL Total Protein (6.3-8.2) g/dL Albumin (3.9-5) g/dL PTH Intact 370.6 H (15-65) pg/mL
--- NOTE | 2017-05-21 11:43 | Progress Note ---
Assessment and Plan Assessment: Paroxysmal atrial fibrillation/atrial flutter with RVR Acute renal failure on CKD Elevated troponin - ECG with no acute ischemic changes; pt denies chest pain; currently nonspecific Mod to severe right-sided hydronephrosis Generalized weakness UTI / sepsis Metabolic acidosis Hematuria - H/H currently stable BPH Chronic indwelling Valle Hypokalemia Moderate pulm HTN - RVSP 53mmHg Plan: Echo reviewed - EF 50-55%, mild TR, mod pulm HTN with RVSP 53mmHg. Cont amiodarone gtt. Initiate PO lopressor. No systemic anticoagulation at this time in regards to AFib/AFlutter in setting of gross hematuria. Will readdress prior to hospital discharge. IV abx per primary. Assessment and plan reviewed with pt at bedside. The patient has been seen in conjunction with Dr. PRATIMA Mac who agrees with the assessment and plan of care. Subjective Date of service: 05/21/17 Principal diagnosis: sepsis, ARF, Afib Interval history: pt resting in bed, no current complaints. remains in AFib/AFlutter with RVR, HR 120s. BPs elevated. amio gtt infusing. Objective Last Vital Signs Temp 97.8 F 05/21/17 07:47 Pulse 71 05/21/17 07:47 Resp 18 05/21/17 07:47 BP 153/72 05/21/17 07:47 Pulse Ox 97 05/21/17 07:47 - Physical Examination General: No Apparent Distress HEENT: Positive: PERRL, Normocephaly, Mucus Membranes Moist Neck: Positive: neck supple, trachea midline Cardiac: Positive: irregularly irregular, S1/S2, Tachycardia Lungs: Positive: Decreased Breath Sounds Neuro: Positive: Grossly Intact Abdomen: Positive: Soft. Negative: Tender Skin: Positive: Clear. Negative: Rash, Wound Musculoskeletal: No Fluid Collection, No Pain, Normal Range of Motion Extremities: Absent: edema - Labs and Meds Cardiac Enzymes 05/21/17 Range/Units 06:27 AST 11 (5-40) units/L CK-MB (CK-2) 4.4 H (0.0-4.0) ng/mL Coagulation 05/21/17 Range/Units 06:27 PT 16.0 H (12.2-14.9) Sec. INR 1.21 H (0.87-1.13) CBC 05/21/17 Range/Units 06:27 WBC 10.9 (4.5-11.0) K/mm3 RBC 4.10 (3.65-5.03) M/mm3 Hgb 12.0 (11.8-15.2) gm/dl Hct 35.4 L D (35.5-45.6) % Plt Count 201 (140-440) K/mm3 Comprehensive Metabolic Panel 05/21/17 Range/Units 06:27 Sodium 135 L (137-145) mmol/L Potassium 3.4 L (3.6-5.0) mmol/L Chloride 90.8 L (98-107) mmol/L Carbon Dioxide 17 L (22-30) mmol/L BUN 113 H (9-20) mg/dL Creatinine 7.5 H (0.8-1.5) mg/dL Glucose 333 H (75-100) mg/dL Calcium 7.3 L (8.4-10.2) mg/dL AST 11 (5-40) units/L ALT 11 (7-56) units/L Alkaline Phosphatase 56 (35-129) units/L Total Protein 6.2 L (6.3-8.2) g/dL Albumin 1.8 L (3.9-5) g/dL - Imaging and Cardiology EKG: report reviewed, image reviewed Echo: pending
[2017-05-21] MEDS ORDERED: ATIVAN PO PRN (12:58)
[2017-05-21] MEDS: LOPRESSOR PO SCH ×2 (14:38→21:57)
--- NOTE | 2017-05-21 17:31 | Progress Note ---
Assessment and Plan Assessment: 1. Acute kidney injury superimposed on CKD stage 4, due to Rt hydronephrosis and UTI/sepsis. Baseline Cr around 2.87mg/dl in 05/2016 on last office visit with Dr Randhawa 2. Metabolic acidosis due RAMOS 3. UTI 4. Hypokalemia 5. Atrial fibrillation with RVR 6. Secondary hyperparathyroidism 7. metabolic encephalopathy Plan/recommendations: - cont IV bicarb for now - increased UOP noted s/p new beltre insertion/on IVF, however still with increased azotemia contributing to change of mental status. If no significant improvement of azotemia seen in AM will consider HD for uremic encephalopathy - supplementation with KDur - supportive care for RAMOS avoid nephrotoxins, NSAIDs, IV contrast - will monitor lytes/renal parameters and make further recommendations. D/w pt' s daughter. Subjective Date of service: 05/21/17 Principal diagnosis: sepsis, ARF, Afib Interval history: Pt is awake, confused, not oriented to place, time. in no acute respiratory distress. Objective - Vital Signs Vital signs: Vital Signs - 12hr 05/21/17 05/21/17 05/21/17 06:49 07:47 10:00 Temperature 97.8 F Pulse Rate 85 98 H Respiratory 18 Rate Blood Pressure 172/91 Blood Pressure 153/72 [Left] O2 Sat by Pulse 98 97 98 Oximetry 05/21/17 05/21/17 05/21/17 14:38 16:09 16:10 Temperature 98.7 F Pulse Rate 115 H 92 H 88 Respiratory 20 Rate Blood Pressure 134/68 138/89 Blood Pressure [Left] O2 Sat by Pulse 100 100 Oximetry - General Appearance General appearance: well-developed, well-nourished, appears stated age EENT: ATNC, PERRL, mucous membranes moist Neck: no JVD Respiratory: Present: Clear to Ascultation Cardiology: regular, S1S2 Gastrointestinal: normoactive bowel sounds, obese Integumentary: no rash, other (2+ edema b/l LE ) Neurologic: confused, disoriented - Lab 05/21/17 06:27 05/21/17 06:27 Most recent lab results Calcium 7.3 mg/dL (8.4-10.2) L 05/21/17 06:27 Phosphorus 7.00 mg/dL (2.5-4.5) H 05/21/17 06:27 Magnesium 1.80 mg/dL (1.7-2.3) 05/21/17 06:27 Urine Creatinine < 4.2 mg/dL (0.1-20.0) 05/19/17 20:12 Urine Sodium 127 mmol/L 05/19/17 20:12
[2017-05-21] MEDS ORDERED: KCL 30 MEQ in NACL 0.9% 250ML 300 ML IV ONE (18:00)
[2017-05-21] MEDS ORDERED: KCL 10MEQ/100ML 10 MEQ/100 ML BAG IV SCH (18:00)
[2017-05-21] MEDS: CORDARONE 900 MG in D5W 482 ML IV SCH (21:54)
[2017-05-21] MEDS: SODIUM BICARBONATE 150 MEQ in STERILE WATER 1,000 ML IV SCH (21:56)
[2017-05-21] MEDS: cefTRIAXone 1 GM in NACL 0.9% 20 ML IV SCH (21:57)
[2017-05-21] MEDS ORDERED: NOVOLOG SUB-Q SCH (23:20)
[2017-05-22] MEDS: HumaLOG SUB-Q SCH ×5 (01:09→22:48)
[2017-05-22 06:01] LABS: Hemoglobin 12.6 gm/dl (11.8-15.2); Mean Corpuscular HGB Conc 34 % (32-34); Mean Corpuscular Hemoglobin 29 pg (28-32); Mean Corpuscular Volume 86 fl (84-94); Platelet Count 206 K/mm3 (140-440); Red Blood Count 4.29 M/mm3 (3.65-5.03); Red Cell Distribution Width 14.5 % (13.2-15.2)
[2017-05-22 06:25] LABS: Albumin 1.8 g/dL (3.9-5); Calcium 7.3 mg/dL (8.4-10.2)
[2017-05-22 06:58] LABS: Anisocytosis 1+; Band Neutrophils # (Manual) 0.3 K/mm3; Basophils % (Manual) 0 % (0.0-1.8); Total Cells Counted 100
[2017-05-22 06:59] LABS: Platelet Estimate Consistent w Auto
[2017-05-22] MEDS ORDERED: NACL 0.9% 100 ML IV PRN ×3 (08:30→17:21)
[2017-05-22] MEDS ORDERED: NACL 0.9% 1000 ML 1,000 ML IV SCH (09:00)
[2017-05-22] MEDS ORDERED: HumaLOG SUB-Q ONE ×2 (10:00)
[2017-05-22 10:08] LABS: Myeloperoxidase Antibody <1.0 AI (<1.0)
[2017-05-22] MEDS: LOPRESSOR PO SCH ×3 (10:19→21:58)
--- NOTE | 2017-05-22 10:29 | Progress Note ---
Assessment and Plan Assessment: 1. Acute kidney injury superimposed on CKD stage 4, due to Rt hydronephrosis and UTI/sepsis. Baseline Cr around 2.87mg/dl in 05/2016 on last office visit with Dr Randhawa 2. Metabolic acidosis due RAMOS 3. UTI 4. Hypokalemia 5. Atrial fibrillation with RVR 6. Secondary hyperparathyroidism 7. metabolic encephalopathy Plan/recommendations: - pt with persistent confusion, suspect uremic encephalopathy. UOP increased however still with increased azotemia. Discussed with patient's daughter regarding temporary HD to correct uremic complication, discussed risks/benefits of HD, which daughter understands and agrees to it. Will consult vascular surgery for vascath placement and arrange HD thereafter. Plan for HD today and tomorrow. - supplementation with KDur - supportive care for RAMOS avoid nephrotoxins, NSAIDs, IV contrast - will monitor lytes/renal parameters and make further recommendations. D/w pt' s daughter. Subjective Date of service: 05/22/17 Principal diagnosis: sepsis, ARF, Afib Interval history: Pt is awake, confused, not oriented to place, time. in no acute respiratory distress. Objective - Vital Signs Vital signs: Vital Signs - 12hr 05/21/17 05/21/17 05/22/17 23:30 23:31 03:24 Temperature 98.5 F 97.4 F L Pulse Rate 87 84 90 Respiratory 18 18 Rate Blood Pressure 179/93 182/91 O2 Sat by Pulse 98 98 99 Oximetry 05/22/17 05/22/17 08:08 10:19 Temperature 98.2 F Pulse Rate 87 90 Respiratory 19 Rate Blood Pressure 168/93 166/90 O2 Sat by Pulse 100 Oximetry - General Appearance General appearance: well-developed, well-nourished, appears stated age EENT: ATNC, PERRL, mucous membranes moist Neck: no JVD Respiratory: Present: Clear to Ascultation Cardiology: regular, S1S2 Gastrointestinal: normoactive bowel sounds Integumentary: no rash, other (+2 edema ) Neurologic: no focal deficit, confused, disoriented, CN 3-12 intact - Lab 05/22/17 05:03 05/22/17 05:03 Most recent lab results Calcium 7.3 mg/dL (8.4-10.2) L 05/22/17 05:03 Phosphorus 7.00 mg/dL (2.5-4.5) H 05/21/17 06:27 Magnesium 1.90 mg/dL (1.7-2.3) 05/22/17 05:03 Urine Creatinine < 4.2 mg/dL (0.1-20.0) 05/19/17 20:12 Urine Sodium 127 mmol/L 05/19/17 20:12
--- NOTE | 2017-05-22 11:26 | Progress Note ---
Assessment and Plan Assessment: Paroxysmal atrial fibrillation/atrial flutter with RVR --> SR Acute renal failure on CKD - initiated on HD Elevated troponin - ECG with no acute ischemic changes; pt denies chest pain; currently nonspecific Mod to severe right-sided hydronephrosis Generalized weakness Persistent confusion - suspect uremic encephalopathy per nephrology UTI / sepsis Metabolic acidosis Hematuria - H/H currently stable BPH Chronic indwelling Valle Hypokalemia Moderate pulm HTN - RVSP 53mmHg Plan: Pt is for HD today. Pt has converted to SR. D/c amio gtt and initiate PO amio 400mg BID. Increase lopressor to 50mg PO BID for BP control. No systemic anticoagulation at this time in regards to AFib/AFlutter in setting of gross hematuria. Hematuria appears to be improving. Can consider AC if/when okay per urology and once mental status improves - pt it at high risk for falls at this time. The patient has been seen in conjunction with Dr. PRATIMA Mac who agrees with the assessment and plan of care. Subjective Date of service: 05/22/17 Principal diagnosis: sepsis, ARF, Afib Interval history: pt resting in bed, no current complaints. tele reviewed - pt has converted to SR with frequent PACs. pt confused. Objective Last Vital Signs Temp 98.2 F 05/22/17 08:08 Pulse 90 05/22/17 10:19 Resp 19 05/22/17 08:08 BP 166/90 05/22/17 10:19 Pulse Ox 100 05/22/17 08:08 - Physical Examination General: No Apparent Distress, Other (confused) HEENT: Positive: PERRL, Normocephaly, Mucus Membranes Moist Neck: Positive: neck supple, trachea midline Cardiac: Positive: Reg Rate and Rhythm, S1/S2 Lungs: Positive: clear to auscultation Neuro: Positive: Grossly Intact Abdomen: Positive: Soft. Negative: Tender Skin: Positive: Clear. Negative: Rash, Wound Musculoskeletal: No Fluid Collection, No Pain, Normal Range of Motion Extremities: Absent: edema - Labs and Meds Cardiac Enzymes 05/22/17 Range/Units 05:03 AST 12 (5-40) units/L CBC 05/22/17 Range/Units 05:03 WBC 8.9 (4.5-11.0) K/mm3 RBC 4.29 (3.65-5.03) M/mm3 Hgb 12.6 (11.8-15.2) gm/dl Hct 37.0 (35.5-45.6) % Plt Count 206 (140-440) K/mm3 Comprehensive Metabolic Panel 05/22/17 Range/Units 05:03 Sodium 137 (137-145) mmol/L Potassium 3.5 L (3.6-5.0) mmol/L Chloride 92.5 L (98-107) mmol/L Carbon Dioxide 22 (22-30) mmol/L BUN 119 H (9-20) mg/dL Creatinine 7.1 H (0.8-1.5) mg/dL Glucose 195 H (75-100) mg/dL Calcium 7.3 L (8.4-10.2) mg/dL AST 12 (5-40) units/L ALT 12 (7-56) units/L Alkaline Phosphatase 62 (35-129) units/L Total Protein 6.2 L (6.3-8.2) g/dL Albumin 1.8 L (3.9-5) g/dL - Imaging and Cardiology EKG: report reviewed, image reviewed Echo: pending
[2017-05-22 12:37] LABS: ANA Screen, IFA Negative (Negative)
[2017-05-22] MEDS: CORDARONE PO SCH ×2 (12:45→21:58)
--- NOTE | 2017-05-22 13:32 | Progress Note ---
Assessment and Plan Assessment and plan: Sepsis. Continue IV antibiotics. Etiology secondary to UTI/Escherichia coli bacteremia. Escherichia coli bacteremia. ID consultation. Atrial fibrillation with RVR. Pt has converted to SR. D/c amio gtt. cardiology will initiate PO amio 400mg BID and increase lopressor to 50mg PO BID for BP control. Cardiology recommended no systemic anticoagulation at this time in regards to AFib/AFlutter in setting of gross hematuria. Hydronephrosis right sided. Valle catheter changed. Urology following. 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 Etiology secondary to acute kidney injury superimposed CK-MB stage IV due to right hydronephrosis and UTI/sepsis. aseline Cr around 2.87mg/dl in 05/2016. Patient is status post catheter placement and hemodialysis. Follow BMP. Toxic metabolic encephalopathy. Etiology likely secondary to uremic encephalopathy and sepsis. Continue to treat underlying causes. Abnormal cardiac enzymes BPH. Per urology Hypertension. Continue antihypertensive medications as needed. Moderate pulmonary hypertension. Diabetes mellitus type II. Continue Accu-Cheks and slight scale insulin. Gross hematuria. As above. Patient with indwelling Valle catherter changed by Urologist 05/20/17 History Interval history: No new issues overnight. Hospitalist Physical - Constitutional Vitals: Temp Pulse Resp BP Pulse Ox 98.2 F 78 19 160/76 97 05/22/17 12:11 05/22/17 12:45 05/22/17 12:11 05/22/17 12:45 05/22/17 12:11 General appearance: Present: no acute distress, well-nourished - EENT Eyes: Present: PERRL, EOM intact ENT: hearing intact, clear oral mucosa, dentition normal - Neck Neck: Present: supple, normal ROM - Respiratory Respiratory effort: normal Respiratory: bilateral: CTA - Cardiovascular Rhythm: regular Heart Sounds: Present: S1 & S2. Absent: gallop, rub - Extremities Extremities: no ischemia, No edema, Full ROM - Abdominal General gastrointestinal: soft, non-tender, non-distended, normal bowel sounds - Integumentary Integumentary: Present: clear, warm, dry - Neurologic Neurologic: CNII-XII intact, moves all extremities Results - Labs CBC & Chem 7: 05/22/17 05:03 05/22/17 05:03 Labs: Laboratory Last Values WBC 8.9 K/mm3 (4.5-11.0) 05/22/17 05:03 RBC 4.29 M/mm3 (3.65-5.03) 05/22/17 05:03 Hgb 12.6 gm/dl (11.8-15.2) 05/22/17 05:03 Hct 37.0 % (35.5-45.6) 05/22/17 05:03 MCV 86 fl (84-94) 05/22/17 05:03 MCH 29 pg (28-32) 05/22/17 05:03 MCHC 34 % (32-34) 05/22/17 05:03 RDW 14.5 % (13.2-15.2) 05/22/17 05:03 Plt Count 206 K/mm3 (140-440) 05/22/17 05:03 Add Manual Diff Complete 05/22/17 05:03 Total Counted 100 05/22/17 05:03 Seg Neuts % (Manual) 76.0 % (40.0-70.0) H 05/22/17 05:03 Band Neutrophils % 3.0 % 05/22/17 05:03 Lymphocytes % (Manual) 9.0 % (13.4-35.0) L 05/22/17 05:03 Reactive Lymphs % (Man) 0 % 05/22/17 05:03 Monocytes % (Manual) 11.0 % (0.0-7.3) H 05/22/17 05:03 Eosinophils % (Manual) 1.0 % (0.0-4.3) 05/22/17 05:03 Basophils % (Manual) 0 % (0.0-1.8) 05/22/17 05:03 Metamyelocytes % 0 % 05/22/17 05:03 Myelocytes % 0 % 05/22/17 05:03 Promyelocytes % 0 % 05/22/17 05:03 Blast Cells % 0 % 05/22/17 05:03 Nucleated RBC % Not Reportable 05/22/17 05:03 Seg Neutrophils # Man 6.8 K/mm3 (1.8-7.7) 05/22/17 05:03 Band Neutrophils # 0.3 K/mm3 05/22/17 05:03 Lymphocytes # (Manual) 0.8 K/mm3 (1.2-5.4) L 05/22/17 05:03 Abs React Lymphs (Man) 0.0 K/mm3 05/22/17 05:03 Monocytes # (Manual) 1.0 K/mm3 (0.0-0.8) H 05/22/17 05:03 Eosinophils # (Manual) 0.1 K/mm3 (0.0-0.4) 05/22/17 05:03 Basophils # (Manual) 0.0 K/mm3 (0.0-0.1) 05/22/17 05:03 Metamyelocytes # 0.0 K/mm3 05/22/17 05:03 Myelocytes # 0.0 K/mm3 05/22/17 05:03 Promyelocytes # 0.0 K/mm3 05/22/17 05:03 Blast Cells # 0.0 K/mm3 05/22/17 05:03 WBC Morphology Not Reportable 05/22/17 05:03 Hypersegmented Neuts Not Reportable 05/22/17 05:03 Hyposegmented Neuts Not Reportable 05/22/17 05:03 Hypogranular Neuts Not Reportable 05/22/17 05:03 Smudge Cells Not Reportable 05/22/17 05:03 Toxic Granulation Not Reportable 05/22/17 05:03 Toxic Vacuolation Not Reportable 05/22/17 05:03 Dohle Bodies Not Reportable 05/22/17 05:03 Pelger-Huet Anomaly Not Reportable 05/22/17 05:03 Romina Rods Not Reportable 05/22/17 05:03 Platelet Estimate Consistent w auto 05/22/17 05:03 Clumped Platelets Not Reportable 05/22/17 05:03 Plt Clumps, EDTA Not Reportable 05/22/17 05:03 Large Platelets Not Reportable 05/22/17 05:03 Giant Platelets Not Reportable 05/22/17 05:03 Platelet Satelliting Not Reportable 05/22/17 05:03 Plt Morphology Comment Not Reportable 05/22/17 05:03 RBC Morphology Not Reportable 05/22/17 05:03 Dimorphic RBCs Not Reportable 05/22/17 05:03 Polychromasia Not Reportable 05/22/17 05:03 Hypochromasia Not Reportable 05/22/17 05:03 Poikilocytosis Not Reportable 05/22/17 05:03 Anisocytosis 1+ 05/22/17 05:03 Microcytosis Not Reportable 05/22/17 05:03 Macrocytosis Not Reportable 05/22/17 05:03 Spherocytes Not Reportable 05/22/17 05:03 Pappenheimer Bodies Not Reportable 05/22/17 05:03 Sickle Cells Not Reportable 05/22/17 05:03 Target Cells Not Reportable 05/22/17 05:03 Tear Drop Cells Not Reportable 05/22/17 05:03 Ovalocytes Not Reportable 05/22/17 05:03 Helmet Cells Not Reportable 05/22/17 05:03 [place] Bodies Not Reportable 05/22/17 05:03 [place] Rings Not Reportable 05/22/17 05:03 Steve Cells Not Reportable 05/22/17 05:03 Bite Cells Not Reportable 05/22/17 05:03 Crenated Cell Not Reportable 05/22/17 05:03 Elliptocytes Not Reportable 05/22/17 05:03 Acanthocytes (Spur) Not Reportable 05/22/17 05:03 Rouleaux Not Reportable 05/22/17 05:03 Hemoglobin C Crystals Not Reportable 05/22/17 05:03 Schistocytes Not Reportable 05/22/17 05:03 Malaria parasites Not Reportable 05/22/17 05:03 Bob Bodies Not Reportable 05/22/17 05:03 Hem Pathologist Commnt No 05/22/17 05:03 PT 16.0 Sec. (12.2-14.9) H 05/21/17 06:27 INR 1.21 (0.87-1.13) H 05/21/17 06:27 Sodium 137 mmol/L (137-145) 05/22/17 05:03 Potassium 3.5 mmol/L (3.6-5.0) L 05/22/17 05:03 Chloride 92.5 mmol/L (98-107) L 05/22/17 05:03 Carbon Dioxide 22 mmol/L (22-30) 05/22/17 05:03 Anion Gap 26 mmol/L 05/22/17 05:03 BUN 119 mg/dL (9-20) H 05/22/17 05:03 Creatinine 7.1 mg/dL (0.8-1.5) H 05/22/17 05:03 Estimated GFR 9 ml/min 05/22/17 05:03 BUN/Creatinine Ratio 17 % 05/22/17 05:03 Glucose 195 mg/dL (75-100) H 05/22/17 05:03 POC Glucose 329 (70-105) H 05/21/17 21:51 Lactic Acid 1.70 mmol/L (0.7-2.0) 05/21/17 15:16 Calcium 7.3 mg/dL (8.4-10.2) L 05/22/17 05:03 Phosphorus 7.00 mg/dL (2.5-4.5) H 05/21/17 06:27 Magnesium 1.90 mg/dL (1.7-2.3) 05/22/17 05:03 Total Bilirubin 0.20 mg/dL (0.1-1.2) 05/22/17 05:03 AST 12 units/L (5-40) 05/22/17 05:03 ALT 12 units/L (7-56) 05/22/17 05:03 Alkaline Phosphatase 62 units/L (35-129) 05/22/17 05:03 Total Creatine Kinase 122 units/L (55-170) 05/21/17 06:27 CK-MB (CK-2) 4.4 ng/mL (0.0-4.0) H 05/21/17 06:27 CK-MB (CK-2) Rel Index 3.6 (0-4) 05/21/17 06:27 Troponin T 0.113 ng/mL (0.00-0.029) H* 05/21/17 06:27 NT-Pro-B Natriuret Pep 4670 pg/mL (0-900) H 05/19/17 17:24 Total Protein 6.2 g/dL (6.3-8.2) L 05/22/17 05:03 Albumin 1.8 g/dL (3.9-5) L 05/22/17 05:03 Albumin/Globulin Ratio 0.4 % 05/22/17 05:03 Triglycerides 160 mg/dL (2-149) H 05/19/17 17:24 Cholesterol 151 mg/dL (50-199) 05/19/17 17:24 LDL Cholesterol Direct 93 mg/dL (50-130) 05/19/17 17:24 HDL Cholesterol 26 mg/dL (40-59) L 05/19/17 17:24 Cholesterol/HDL Ratio 5.80 % 05/19/17 17:24 TSH 1.390 mlU/mL (0.270-4.200) 05/20/17 15:28 Free T4 0.95 ng/dL (0.76-1.46) 05/20/17 15:28 PTH Intact 370.6 pg/mL (15-65) H 05/21/17 06:27 Urine Color Red (Yellow) 05/19/17 20:12 Urine Turbidity Turbid (Clear) 05/19/17 20:12 Urine pH 8.0 (5.0-7.0) H 05/19/17 20:12 Ur Specific [place] 1.018 (1.003-1.030) 05/19/17 20:12 Urine Protein 100 mg/dl mg/dL (Negative) 05/19/17 20:12 Urine Glucose (UA) Neg mg/dL (Negative) 05/19/17 20:12 Urine Ketones Neg mg/dL (Negative) 05/19/17 20:12 Urine Blood Lg (Negative) 05/19/17 20:12 Urine Nitrite Neg (Negative) 05/19/17 20:12 Urine Bilirubin Neg (Negative) 05/19/17 20:12 Urine Urobilinogen < 2.0 mg/dL (<2.0) 05/19/17 20:12 Ur Leukocyte Esterase Mod (Negative) 05/19/17 20:12 Urine WBC (Auto) > 182.0 /HPF (0.0-6.0) H 05/19/17 20:12 Urine RBC (Auto) > 182.0 /HPF (0.0-6.0) 05/19/17 20:12 Urine Mucus 3+ /HPF 05/19/17 20:12 Urine Creatinine < 4.2 mg/dL (0.1-20.0) 05/19/17 20:12 Urine Sodium 127 mmol/L 05/19/17 20:12 RENY Screen Negative (Negative) 05/20/17 05:52 Proteinase 3 (PR3) Ab <1.0 AI (<1.0) 05/20/17 05:52 Myeloperoxidase Ab <1.0 AI (<1.0) 05/20/17 05:52
[2017-05-22] MEDS ORDERED: HEPARIN/NS 5000 UNIT/500ML(CATH LAB) 1,000 ML IR ONE (14:06)
[2017-05-22] MEDS ORDERED: HEPARIN 10,000 UNITS/10 ML ONE (14:06)
[2017-05-22] MEDS ORDERED: ANCEF/STERILE WATER 2 GM/20 ML 2 GM/20 ML SYRINGE IV ONE (14:07)
[2017-05-22] MEDS ORDERED: XYLOCAINE 2% INFILTRATI ONE (14:07)
[2017-05-22] MEDS ORDERED: XYLOCAINE 1%/ EPI 1:100,000 INFILTRATI ONE (14:34)
[2017-05-22] MEDS ORDERED: NACL 0.9% 250ML 250 ML ONE (14:34)
[2017-05-22] MEDS ORDERED: VERSED ONE (14:35)
[2017-05-22] MEDS ORDERED: SUBLIMAZE ONE (14:35)
--- NOTE | 2017-05-22 15:09 | Operative Report ---
Operative Report Operative Report: EXAM: 1. Ultrasound-guided puncture of the right internal jugular vein 2. Fluoroscopic-guided placement of a right internal jugular nontunneled noncuffed hemodialysis catheter. DATE: 05/22/17 INDICATION: Acute on chronic renal failure requiring hemodialysis. MEDICATIONS: Please see nursing report for full details. DEVICES: 15 cm dual lumen hemodialysis catheter SHIRT FOLDING MACHINE OPERATOR: JOSE DE OLIVEIRA MD CONTRAST: None PROCEDURE: The risks, benefits, and alternatives were discussed and informed consent was obtained. The patient was transported to the angiography suite in satisfactory/ stable condition and was transported onto the angiography table. The patient's right internal jugular vein was assessed with ultrasound and determined to be patent prior to procedure. The patient was prepped and draped in a sterile fashion. The puncture site was anesthetized. The right internal jugular vein was patent on ultrasound. Under sonographic guidance, the right internal jugular vein was punctured with a 21-gauge micropuncture needle and a 0.018 inch wire was advanced through the needle. Needle was exchanged for transitional dilator. The inner dilator and wire was removed and a 0.035 inch wire was advanced through the transitional dilator into the inferior vena cava. Over the 0.035 inch wire, serial dilatation was performed. The catheter was advanced over the wire and positioned centrally under fluoroscopic guidance. 2-0 ethilon suture was used to secure the catheter. The catheter was charged with heparin 1000 units/mL space. The patient was transferred from the angiography suite back to the floor in stable condition. FINDINGS: 1. Excellent flow was obtained through the dialysis catheter with 20 mL syringes. 2. The catheter tip is in the right atrium. IMPRESSION: 1. Successful sonographically and fluoroscopically guided placement of a right internal jugular nontunneled noncuffed hemodialysis catheter.
[2017-05-22] MEDS ORDERED: K-DUR PO ONE ×2 (18:00→21:00)
--- NOTE | 2017-05-22 18:49 | Progress Note ---
Subjective Date of service: 05/22/17 Principal diagnosis: sepsis, ARF, Afib Interval history: This is a 82-year-old man with a history of hypertension, diabetes, BPH was brought to the emergency room for evaluation of generalized weakness and fall. He was found to have acute renal failure, is slowly and became dislodged and it was replaced in the emergency room. Urine is blood tinged. Patient is unable to give a history, unable to reach family. Review of systems very difficult to obtain blood sugar 200-300 range beltre draining pink tinged urine AP BPH continue beltre Objective - Constitutional Vitals: Vital Signs - 12hr 05/22/17 05/22/17 05/22/17 08:08 10:19 11:00 Temperature 98.2 F Pulse Rate 87 90 82 Respiratory 19 Rate Blood Pressure 168/93 166/90 Blood Pressure [Left] O2 Sat by Pulse 100 Oximetry 05/22/17 05/22/17 05/22/17 12:11 12:45 15:41 Temperature 98.2 F 98.1 F Pulse Rate 74 78 80 Respiratory 19 18 Rate Blood Pressure 160/76 163/88 Blood Pressure 161/78 [Left] O2 Sat by Pulse 97 Oximetry 05/22/17 16:00 Temperature Pulse Rate 85 Respiratory Rate Blood Pressure 161/86 Blood Pressure [Left] O2 Sat by Pulse Oximetry - Labs CBC & Chem 7: 05/22/17 05:03 05/22/17 05:03 Labs: Abnormal lab results 05/21/17 05/22/17 05/22/17 Range/Units 21:51 05:03 05:03 Seg Neuts % (Manual) 76.0 H (40.0-70.0) % Lymphocytes % (Manual) 9.0 L (13.4-35.0) % Monocytes % (Manual) 11.0 H (0.0-7.3) % Lymphocytes # (Manual) 0.8 L (1.2-5.4) K/mm3 Monocytes # (Manual) 1.0 H (0.0-0.8) K/mm3 Potassium 3.5 L (3.6-5.0) mmol/L Chloride 92.5 L (98-107) mmol/L BUN 119 H (9-20) mg/dL Creatinine 7.1 H (0.8-1.5) mg/dL Glucose 195 H (75-100) mg/dL POC Glucose 329 H (70-105) Calcium 7.3 L (8.4-10.2) mg/dL Total Protein 6.2 L (6.3-8.2) g/dL Albumin 1.8 L (3.9-5) g/dL 18 05/22/17 Range/Units 08:15 11:56 Seg Neuts % (Manual) (40.0-70.0) % Lymphocytes % (Manual) (13.4-35.0) % Monocytes % (Manual) (0.0-7.3) % Lymphocytes # (Manual) (1.2-5.4) K/mm3 Monocytes # (Manual) (0.0-0.8) K/mm3 Potassium (3.6-5.0) mmol/L Chloride (98-107) mmol/L BUN (9-20) mg/dL Creatinine (0.8-1.5) mg/dL Glucose (75-100) mg/dL POC Glucose 194 H 184 H (70-105) Calcium (8.4-10.2) mg/dL Total Protein (6.3-8.2) g/dL Albumin (3.9-5) g/dL
[2017-05-22 19:00] LABS: Hepatitis A Antibody IgM Non-Reactive (NonReactive); Hepatitis B Core IgM Non-Reactive (NonReactive); Hepatitis B Surface Antigen Non-Reactive (Negative); Hepatitis C Virus Antibody Non-Reactive (NonReactive)
[2017-05-22] MEDS: HEPARIN IV PRN (19:46)
[2017-05-22] MEDS ORDERED: NACL 0.9 (PRIMING MACHINE ONLY DIALYSIS) MC ONE (19:52)
[2017-05-22] MEDS: cefTRIAXone 1 GM in NACL 0.9% 20 ML IV SCH (21:59)
[2017-05-23 07:38] LABS: Hematocrit 37.5 % (35.5-45.6); Hemoglobin 12.7 gm/dl (11.8-15.2); Mean Corpuscular HGB Conc 34 % (32-34); Mean Corpuscular Hemoglobin 29 pg (28-32); Mean Corpuscular Volume 87 fl (84-94); Platelet Count 192 K/mm3 (140-440); Red Blood Count 4.32 M/mm3 (3.65-5.03); Red Cell Distribution Width 14.6 % (13.2-15.2)
[2017-05-23 07:59] LABS: Albumin 1.9 g/dL (3.9-5); Calcium 7.5 mg/dL (8.4-10.2)
[2017-05-23] MEDS: HumaLOG SUB-Q SCH ×4 (08:00→22:13)
[2017-05-23] MEDS ORDERED: HumaLOG SUB-Q ONE ×3 (10:00)
--- NOTE | 2017-05-23 10:28 | Progress Note ---
Assessment and Plan - Patient Problems (1) Acute renal failure superimposed on chronic kidney disease Current Visit: Yes Status: Acute Plan to address problem: Patient may well have chronic kidney disease which has progressed to end-stage renal disease. Follow renal indices following relief of obstruction. If no improvement, will place patient at outpatient dialysis clinic and consider AV fistula placement. We will have case management to start working on placement for now (2) Obstructive uropathy Current Visit: Yes Status: Acute Plan to address problem: Status post Valle catheter changed by urology. (3) Metabolic acidosis Current Visit: Yes Status: Acute Plan to address problem: Improving with dialysis. (4) Hypokalemia Current Visit: Yes Status: Acute (5) Metabolic encephalopathy Current Visit: Yes Status: Acute Plan to address problem: Improving with dialysis. Hemodialysis again today (6) Type 2 diabetes mellitus with diabetic nephropathy Current Visit: Yes Status: Acute Plan to address problem: Blood sugar management by primary attending (7) Hypertensive chronic kidney disease with stage 5 chronic kidney disease or end stage renal disease Current Visit: Yes Status: Acute Plan to address problem: Follow blood pressure following fluid removal on dialysis Subjective Date of service: 05/23/17 Principal diagnosis: sepsis, ARF, Afib Interval history: Patient seen lying in bed. He has no complaints. Wants to be out of restraints. Objective - Exam Narrative Exam: Elderly male lying in bed in no acute distress HEENT: NCAT, pink oral mucous membrane Neck: Supple, no venous distention CVS: S1S2 RRR with no murmur, rub or gallop Chest: Clear to auscultation Abdomen: Protuberant, soft, nontender, no organomegaly, bowel sounds are present Extremities: 2+ edema Neuro: Awake, alert no focal deficits - Vital Signs Vital signs: Vital Signs - 12hr 05/23/17 05/23/17 05/23/17 01:43 01:48 01:51 Temperature 98.5 F 98.5 F Pulse Rate 80 Respiratory 20 Rate Blood Pressure 169/91 Blood Pressure [Left] O2 Sat by Pulse 98 Oximetry 05/23/17 05/23/17 05/23/17 02:22 05:22 05:27 Temperature 98.7 F Pulse Rate 95 H 81 Respiratory 20 Rate Blood Pressure 181/90 Blood Pressure [Left] O2 Sat by Pulse 96 Oximetry 05/23/17 05/23/17 08:55 10:00 Temperature 97.7 F Pulse Rate 66 74 Respiratory 18 Rate Blood Pressure Blood Pressure 187/91 [Left] O2 Sat by Pulse 98 Oximetry - Lab 05/23/17 06:32 05/23/17 06:32 Most recent lab results Calcium 7.5 mg/dL (8.4-10.2) L 05/23/17 06:32 Phosphorus 7.00 mg/dL (2.5-4.5) H 05/21/17 06:27 Magnesium 1.90 mg/dL (1.7-2.3) 05/22/17 05:03 Urine Creatinine < 4.2 mg/dL (0.1-20.0) 05/19/17 20:12 Urine Sodium 127 mmol/L 05/19/17 20:12
[2017-05-23 10:42] LABS: Total Cells Counted 100
[2017-05-23 10:43] LABS: Anisocytosis 1+; Band Neutrophils # (Manual) 0.5 K/mm3; Basophils % (Manual) 0 % (0.0-1.8)
[2017-05-23] MEDS: LOPRESSOR PO SCH ×2 (11:00→22:12)
[2017-05-23] MEDS: CORDARONE PO SCH ×2 (11:00→22:12)
--- NOTE | 2017-05-23 11:19 | Progress Note ---
Assessment and Plan Assessment and plan: Sepsis. Continue IV antibiotics. Etiology secondary to UTI/Escherichia coli bacteremia. Escherichia coli bacteremia. ID consultation pending. Atrial fibrillation with RVR. Pt has converted to SR. D/cd amio gtt. Cont. amio 400mg BID and lopressor to 50mg PO BID for BP control. Cardiology recommended no systemic anticoagulation at this time in regards to AFib/ AFlutter in setting of gross hematuria. Hydronephrosis right sided. Valle catheter changed. Urology following. 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 Etiology secondary to acute kidney injury superimposed CK-MB stage IV due to right hydronephrosis and UTI/sepsis. Baseline Cr around 2.87mg/dl in 05/2016. Patient is status post catheter placement and hemodialysis. Follow BMP. Patient could potentially have chronic kidney disease which has progressed to end-stage renal disease. Continue to follow renal indices following relief of obstruction. If no improvement, will place patient at outpatient dialysis clinic and consider AV fistula placement. We will have case management to start working on placement for now Toxic metabolic encephalopathy. Etiology likely secondary to uremic encephalopathy and sepsis. Continue to treat underlying causes. Abnormal cardiac enzymes BPH. Per urology Hypertension. Continue antihypertensive medications as needed. Moderate pulmonary hypertension. Diabetes mellitus type II. Continue Accu-Cheks and slight scale insulin. Gross hematuria. As above. Patient with indwelling Valle catherter changed by Urologist 05/20/17 History Interval history: No new issues overnight. Hospitalist Physical - Constitutional Vitals: Temp Pulse Resp BP Pulse Ox 97.7 F 74 18 187/91 98 05/23/17 08:55 05/23/17 10:00 05/23/17 08:55 05/23/17 08:55 05/23/17 08:55 General appearance: Present: no acute distress, well-nourished - EENT Eyes: Present: PERRL, EOM intact ENT: hearing intact, clear oral mucosa, dentition normal - Neck Neck: Present: supple, normal ROM - Respiratory Respiratory effort: normal Respiratory: bilateral: CTA - Cardiovascular Rhythm: regular Heart Sounds: Present: S1 & S2. Absent: gallop, rub - Extremities Extremities: no ischemia, No edema, Full ROM - Abdominal General gastrointestinal: soft, non-tender, non-distended, normal bowel sounds - Integumentary Integumentary: Present: clear, warm, dry - Neurologic Neurologic: CNII-XII intact, moves all extremities Results - Labs CBC & Chem 7: 05/23/17 06:32 03 06:32 Labs: Laboratory Last Values WBC 8.6 K/mm3 (4.5-11.0) 05/23/17 06:32 RBC 4.32 M/mm3 (3.65-5.03) 05/23/17 06:32 Hgb 12.7 gm/dl (11.8-15.2) 05/23/17 06:32 Hct 37.5 % (35.5-45.6) 05/23/17 06:32 MCV 87 fl (84-94) 05/23/17 06:32 MCH 29 pg (28-32) 05/23/17 06:32 MCHC 34 % (32-34) 05/23/17 06:32 RDW 14.6 % (13.2-15.2) 05/23/17 06:32 Plt Count 192 K/mm3 (140-440) 05/23/17 06:32 [place] % (Auto) Environmental Services Attendant 05/23/17 06:32 Add Manual Diff Complete 05/23/17 06:32 Total Counted 100 05/23/17 06:32 Seg Neuts % (Manual) 72.0 % (40.0-70.0) H 05/23/17 06:32 Band Neutrophils % 6.0 % 05/23/17 06:32 Lymphocytes % (Manual) 4.0 % (13.4-35.0) L 05/23/17 06:32 Reactive Lymphs % (Man) 0 % 05/23/17 06:32 Monocytes % (Manual) 15.0 % (0.0-7.3) H 05/23/17 06:32 Eosinophils % (Manual) 3.0 % (0.0-4.3) 05/23/17 06:32 Basophils % (Manual) 0 % (0.0-1.8) 05/23/17 06:32 Metamyelocytes % 0 % 05/23/17 06:32 Myelocytes % 0 % 05/23/17 06:32 Promyelocytes % 0 % 05/23/17 06:32 Blast Cells % 0 % 05/23/17 06:32 Nucleated RBC % Not Reportable 05/23/17 06:32 Seg Neutrophils # Man 6.2 K/mm3 (1.8-7.7) 05/23/17 06:32 Band Neutrophils # 0.5 K/mm3 05/23/17 06:32 Lymphocytes # (Manual) 0.3 K/mm3 (1.2-5.4) L 05/23/17 06:32 Abs React Lymphs (Man) 0.0 K/mm3 05/23/17 06:32 Monocytes # (Manual) 1.3 K/mm3 (0.0-0.8) H 05/23/17 06:32 Eosinophils # (Manual) 0.3 K/mm3 (0.0-0.4) 05/23/17 06:32 Basophils # (Manual) 0.0 K/mm3 (0.0-0.1) 05/23/17 06:32 Metamyelocytes # 0.0 K/mm3 05/23/17 06:32 Myelocytes # 0.0 K/mm3 05/23/17 06:32 Promyelocytes # 0.0 K/mm3 05/23/17 06:32 Blast Cells # 0.0 K/mm3 05/23/17 06:32 WBC Morphology Not Reportable 05/23/17 06:32 Hypersegmented Neuts Not Reportable 05/23/17 06:32 Hyposegmented Neuts Not Reportable 05/23/17 06:32 Hypogranular Neuts Not Reportable 05/23/17 06:32 Smudge Cells Not Reportable 05/23/17 06:32 Toxic Granulation Not Reportable 05/23/17 06:32 Toxic Vacuolation Not Reportable 05/23/17 06:32 Dohle Bodies Not Reportable 05/23/17 06:32 Pelger-Huet Anomaly Not Reportable 05/23/17 06:32 Romina Rods Not Reportable 05/23/17 06:32 Platelet Estimate Appears normal 05/23/17 06:32 Clumped Platelets Not Reportable 05/23/17 06:32 Plt Clumps, EDTA Not Reportable 05/23/17 06:32 Large Platelets Not Reportable 05/23/17 06:32 Giant Platelets Not Reportable 05/23/17 06:32 Platelet Satelliting Not Reportable 05/23/17 06:32 Plt Morphology Comment Not Reportable 05/23/17 06:32 RBC Morphology Not Reportable 05/23/17 06:32 Dimorphic RBCs Not Reportable 05/23/17 06:32 Polychromasia Not Reportable 05/23/17 06:32 Hypochromasia Not Reportable 05/23/17 06:32 Poikilocytosis Not Reportable 05/23/17 06:32 Anisocytosis 1+ 05/23/17 06:32 Microcytosis Not Reportable 05/23/17 06:32 Macrocytosis Not Reportable 05/23/17 06:32 Spherocytes Not Reportable 05/23/17 06:32 Pappenheimer Bodies Not Reportable 05/23/17 06:32 Sickle Cells Not Reportable 05/23/17 06:32 Target Cells Not Reportable 05/23/17 06:32 Tear Drop Cells Not Reportable 05/23/17 06:32 Ovalocytes Not Reportable 05/23/17 06:32 Helmet Cells Not Reportable 05/23/17 06:32 [place] Bodies Not Reportable 05/23/17 06:32 [place] Rings Not Reportable 05/23/17 06:32 [place] Cells Not Reportable 05/23/17 06:32 Bite Cells Not Reportable 05/23/17 06:32 Crenated Cell Not Reportable 05/23/17 06:32 Elliptocytes Not Reportable 05/23/17 06:32 Acanthocytes (Spur) Not Reportable 05/23/17 06:32 Rouleaux Not Reportable 05/23/17 06:32 Hemoglobin C Crystals Not Reportable 05/23/17 06:32 Schistocytes Not Reportable 05/23/17 06:32 Malaria parasites Not Reportable 05/23/17 06:32 Bob Bodies Not Reportable 05/23/17 06:32 Hem Pathologist Commnt No 05/23/17 06:32 PT 16.0 Sec. (12.2-14.9) H 05/21/17 06:27 INR 1.21 (0.87-1.13) H 05/21/17 06:27 Sodium 140 mmol/L (137-145) 05/23/17 06:32 Potassium 3.9 mmol/L (3.6-5.0) 05/23/17 06:32 Chloride 95.4 mmol/L (98-107) L 05/23/17 06:32 Carbon Dioxide 25 mmol/L (22-30) 05/23/17 06:32 Anion Gap 24 mmol/L 05/23/17 06:32 BUN 85 mg/dL (9-20) H 05/23/17 06:32 Creatinine 4.9 mg/dL (0.8-1.5) H 05/23/17 06:32 Estimated GFR 14 ml/min 05/23/17 06:32 BUN/Creatinine Ratio 17 % 05/23/17 06:32 Glucose 305 mg/dL (75-100) H 05/23/17 06:32 POC Glucose 260 (70-105) H 05/23/17 06:08 Lactic Acid 1.70 mmol/L (0.7-2.0) 05/21/17 15:16 Calcium 7.5 mg/dL (8.4-10.2) L 05/23/17 06:32 Phosphorus 7.00 mg/dL (2.5-4.5) H 05/21/17 06:27 Magnesium 1.90 mg/dL (1.7-2.3) 05/22/17 05:03 Total Bilirubin 0.20 mg/dL (0.1-1.2) 05/23/17 06:32 AST 14 units/L (5-40) 05/23/17 06:32 ALT 11 units/L (7-56) 05/23/17 06:32 Alkaline Phosphatase 61 units/L (35-129) 05/23/17 06:32 Total Creatine Kinase 122 units/L (55-170) 05/21/17 06:27 CK-MB (CK-2) 4.4 ng/mL (0.0-4.0) H 05/21/17 06:27 CK-MB (CK-2) Rel Index 3.6 (0-4) 05/21/17 06:27 Troponin T 0.113 ng/mL (0.00-0.029) H* 05/21/17 06:27 NT-Pro-B Natriuret Pep 4670 pg/mL (0-900) H 05/19/17 17:24 Total Protein 6.1 g/dL (6.3-8.2) L 05/23/17 06:32 Albumin 1.9 g/dL (3.9-5) L 05/23/17 06:32 Albumin/Globulin Ratio 0.5 % 05/23/17 06:32 Triglycerides 160 mg/dL (2-149) H 05/19/17 17:24 Cholesterol 151 mg/dL (50-199) 05/19/17 17:24 LDL Cholesterol Direct 93 mg/dL (50-130) 05/19/17 17:24 HDL Cholesterol 26 mg/dL (40-59) L 05/19/17 17:24 Cholesterol/HDL Ratio 5.80 % 05/19/17 17:24 TSH 1.390 mlU/mL (0.270-4.200) 05/20/17 15:28 Free T4 0.95 ng/dL (0.76-1.46) 05/20/17 15:28 PTH Intact 370.6 pg/mL (15-65) H 05/21/17 06:27 Urine Color Red (Yellow) 05/19/17 20:12 Urine Turbidity Turbid (Clear) 05/19/17 20:12 Urine pH 8.0 (5.0-7.0) H 05/19/17 20:12 Ur Specific [place] 1.018 (1.003-1.030) 05/19/17 20:12 Urine Protein 100 mg/dl mg/dL (Negative) 05/19/17 20:12 Urine Glucose (UA) Neg mg/dL (Negative) 05/19/17 20:12 Urine Ketones Neg mg/dL (Negative) 05/19/17 20:12 Urine Blood Lg (Negative) 05/19/17 20:12 Urine Nitrite Neg (Negative) 05/19/17 20:12 Urine Bilirubin Neg (Negative) 05/19/17 20:12 Urine Urobilinogen < 2.0 mg/dL (<2.0) 05/19/17 20:12 Ur Leukocyte Esterase Mod (Negative) 05/19/17 20:12 Urine WBC (Auto) > 182.0 /HPF (0.0-6.0) H 05/19/17 20:12 Urine RBC (Auto) > 182.0 /HPF (0.0-6.0) 05/19/17 20:12 Urine Mucus 3+ /HPF 05/19/17 20:12 Urine Creatinine < 4.2 mg/dL (0.1-20.0) 05/19/17 20:12 Urine Sodium 127 mmol/L 05/19/17 20:12 RENY Screen Negative (Negative) 05/20/17 05:52 Proteinase 3 (PR3) Ab <1.0 AI (<1.0) 05/20/17 05:52 Myeloperoxidase Ab <1.0 AI (<1.0) 05/20/17 05:52 Complement C3 113 mg/dL () 05/20/17 05:52 Complement C4 20 mg/dL () 05/20/17 05:52 Hepatitis A IgM Ab Non-reactive (NonReactive) 05/22/17 18:01 Hep Bs Antigen Non-reactive (Negative) 05/22/17 18:01 Hep B Core IgM Ab Non-reactive (NonReactive) 05/22/17 18:01 Hepatitis C Antibody Non-reactive (NonReactive) 05/22/17 18:01
--- NOTE | 2017-05-23 12:53 | Vascular Lab Report ---
MISCELLANEOUS VESSEL IDENTIFICATION: COMMENTS ON THE SCAN: The right internal jugular vein was identified and under real-time ultrasound guidance was cannulated. IMPRESSION: Successful ultrasound guided vein cannulation.
[2017-05-23] MEDS: HEPARIN IV PRN (12:55)
[2017-05-23] MEDS ORDERED: NACL 0.9 (PRIMING MACHINE ONLY DIALYSIS) MC ONE (14:25)
[2017-05-23] MEDS: cefTRIAXone 1 GM in NACL 0.9% 20 ML IV SCH (22:13)
[2017-05-24] MEDS: HumaLOG SUB-Q SCH ×4 (07:52→22:00)
[2017-05-24 08:14] LABS: Hematocrit 36.7 % (35.5-45.6); Hemoglobin 12.3 gm/dl (11.8-15.2); Mean Corpuscular HGB Conc 34 % (32-34); Mean Corpuscular Hemoglobin 29 pg (28-32); Mean Corpuscular Volume 88 fl (84-94); Platelet Count 140 K/mm3 (140-440); Red Blood Count 4.19 M/mm3 (3.65-5.03); Red Cell Distribution Width 14.6 % (13.2-15.2)
[2017-05-24 08:24] LABS: Calcium 7.5 mg/dL (8.4-10.2)
[2017-05-24] MEDS: LOPRESSOR PO SCH ×2 (10:55→22:00)
[2017-05-24] MEDS: CORDARONE PO SCH ×2 (10:55→22:00)
[2017-05-24] MEDS ORDERED: HumaLOG SUB-Q ONE ×3 (11:00)
--- NOTE | 2017-05-24 13:17 | Progress Note ---
Assessment and Plan Assessment and plan: Sepsis. Continue IV antibiotics. Etiology secondary to UTI/Escherichia coli bacteremia. Escherichia coli bacteremia. ID consultation pending. Atrial fibrillation with RVR. Pt has converted to SR. D/cd amio gtt. Cont. amio 400mg BID and lopressor to 50mg PO BID for BP control. Cardiology recommended no systemic anticoagulation at this time in regards to AFib/ AFlutter in setting of gross hematuria. Hydronephrosis right sided. Valle catheter changed. Urology following. 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 Etiology secondary to acute kidney injury superimposed CK-MB stage IV due to right hydronephrosis and UTI/sepsis. Baseline Cr around 2.87mg/dl in 05/2016. Patient is status post catheter placement and hemodialysis. Follow BMP. Patient could potentially have chronic kidney disease which has progressed to end-stage renal disease. Continue to follow renal indices following relief of obstruction. If no improvement, will place patient at outpatient dialysis clinic and consider AV fistula placement. We will have case management to start working on placement for now Toxic metabolic encephalopathy. Etiology likely secondary to uremic encephalopathy and sepsis. Continue to treat underlying causes. Abnormal cardiac enzymes BPH. Per urology Hypertension. Continue antihypertensive medications as needed. Moderate pulmonary hypertension. Diabetes mellitus type II. Continue Accu-Cheks and slight scale insulin. Gross hematuria. As above. Patient with indwelling Valle catherter changed by Urologist 05/20/17 History Interval history: No new issues overnight. Hospitalist Physical - Constitutional Vitals: Temp Pulse Resp BP Pulse Ox 97.2 F L 69 18 173/84 98 05/24/17 08:53 05/24/17 08:53 05/24/17 08:53 05/24/17 08:53 05/24/17 08:53 General appearance: Present: no acute distress, well-nourished - EENT Eyes: Present: PERRL, EOM intact ENT: hearing intact, clear oral mucosa, dentition normal - Neck Neck: Present: supple, normal ROM - Respiratory Respiratory effort: normal Respiratory: bilateral: CTA - Cardiovascular Rhythm: regular Heart Sounds: Present: S1 & S2. Absent: gallop, rub - Extremities Extremities: no ischemia, No edema, Full ROM - Abdominal General gastrointestinal: soft, non-tender, non-distended, normal bowel sounds - Integumentary Integumentary: Present: clear, warm, dry - Neurologic Neurologic: CNII-XII intact, moves all extremities Results - Labs CBC & Chem 7: 05/24/17 06:45 03 06:45 Labs: Laboratory Last Values WBC 10.1 K/mm3 (4.5-11.0) 05/24/17 06:45 RBC 4.19 M/mm3 (3.65-5.03) 05/24/17 06:45 Hgb 12.3 gm/dl (11.8-15.2) 05/24/17 06:45 Hct 36.7 % (35.5-45.6) 05/24/17 06:45 MCV 88 fl (84-94) 05/24/17 06:45 MCH 29 pg (28-32) 05/24/17 06:45 MCHC 34 % (32-34) 05/24/17 06:45 RDW 14.6 % (13.2-15.2) 05/24/17 06:45 Plt Count 140 K/mm3 (140-440) 05/24/17 06:45 [place] % (Auto) Fishing Accessories Maker 05/23/17 06:32 Add Manual Diff Complete 05/23/17 06:32 Total Counted 100 05/23/17 06:32 Seg Neuts % (Manual) 72.0 % (40.0-70.0) H 05/23/17 06:32 Band Neutrophils % 6.0 % 05/23/17 06:32 Lymphocytes % (Manual) 4.0 % (13.4-35.0) L 05/23/17 06:32 Reactive Lymphs % (Man) 0 % 05/23/17 06:32 Monocytes % (Manual) 15.0 % (0.0-7.3) H 05/23/17 06:32 Eosinophils % (Manual) 3.0 % (0.0-4.3) 05/23/17 06:32 Basophils % (Manual) 0 % (0.0-1.8) 05/23/17 06:32 Metamyelocytes % 0 % 05/23/17 06:32 Myelocytes % 0 % 05/23/17 06:32 Promyelocytes % 0 % 05/23/17 06:32 Blast Cells % 0 % 05/23/17 06:32 Nucleated RBC % Not Reportable 05/23/17 06:32 Seg Neutrophils # Man 6.2 K/mm3 (1.8-7.7) 05/23/17 06:32 Band Neutrophils # 0.5 K/mm3 05/23/17 06:32 Lymphocytes # (Manual) 0.3 K/mm3 (1.2-5.4) L 05/23/17 06:32 Abs React Lymphs (Man) 0.0 K/mm3 05/23/17 06:32 Monocytes # (Manual) 1.3 K/mm3 (0.0-0.8) H 05/23/17 06:32 Eosinophils # (Manual) 0.3 K/mm3 (0.0-0.4) 05/23/17 06:32 Basophils # (Manual) 0.0 K/mm3 (0.0-0.1) 05/23/17 06:32 Metamyelocytes # 0.0 K/mm3 05/23/17 06:32 Myelocytes # 0.0 K/mm3 05/23/17 06:32 Promyelocytes # 0.0 K/mm3 05/23/17 06:32 Blast Cells # 0.0 K/mm3 05/23/17 06:32 WBC Morphology Not Reportable 05/23/17 06:32 Hypersegmented Neuts Not Reportable 05/23/17 06:32 Hyposegmented Neuts Not Reportable 05/23/17 06:32 Hypogranular Neuts Not Reportable 05/23/17 06:32 Smudge Cells Not Reportable 05/23/17 06:32 Toxic Granulation Not Reportable 05/23/17 06:32 Toxic Vacuolation Not Reportable 05/23/17 06:32 Dohle Bodies Not Reportable 05/23/17 06:32 Pelger-Huet Anomaly Not Reportable 05/23/17 06:32 Romina Rods Not Reportable 05/23/17 06:32 Platelet Estimate Appears normal 05/23/17 06:32 Clumped Platelets Not Reportable 05/23/17 06:32 Plt Clumps, EDTA Not Reportable 05/23/17 06:32 Large Platelets Not Reportable 05/23/17 06:32 Giant Platelets Not Reportable 05/23/17 06:32 Platelet Satelliting Not Reportable 05/23/17 06:32 Plt Morphology Comment Not Reportable 05/23/17 06:32 RBC Morphology Not Reportable 05/23/17 06:32 Dimorphic RBCs Not Reportable 05/23/17 06:32 Polychromasia Not Reportable 05/23/17 06:32 Hypochromasia Not Reportable 05/23/17 06:32 Poikilocytosis Not Reportable 05/23/17 06:32 Anisocytosis 1+ 05/23/17 06:32 Microcytosis Not Reportable 05/23/17 06:32 Macrocytosis Not Reportable 05/23/17 06:32 Spherocytes Not Reportable 05/23/17 06:32 Pappenheimer Bodies Not Reportable 05/23/17 06:32 Sickle Cells Not Reportable 05/23/17 06:32 Target Cells Not Reportable 05/23/17 06:32 Tear Drop Cells Not Reportable 05/23/17 06:32 Ovalocytes Not Reportable 05/23/17 06:32 Helmet Cells Not Reportable 05/23/17 06:32 [place] Bodies Not Reportable 05/23/17 06:32 [place] Rings Not Reportable 05/23/17 06:32 [place] Cells Not Reportable 05/23/17 06:32 Bite Cells Not Reportable 05/23/17 06:32 Crenated Cell Not Reportable 05/23/17 06:32 Elliptocytes Not Reportable 05/23/17 06:32 Acanthocytes (Spur) Not Reportable 05/23/17 06:32 Rouleaux Not Reportable 05/23/17 06:32 Hemoglobin C Crystals Not Reportable 05/23/17 06:32 Schistocytes Not Reportable 05/23/17 06:32 Malaria parasites Not Reportable 05/23/17 06:32 Bob Bodies Not Reportable 05/23/17 06:32 Hem Pathologist Commnt No 05/23/17 06:32 PT 16.0 Sec. (12.2-14.9) H 05/21/17 06:27 INR 1.21 (0.87-1.13) H 05/21/17 06:27 Sodium 137 mmol/L (137-145) 05/24/17 06:45 Potassium 3.6 mmol/L (3.6-5.0) 05/24/17 06:45 Chloride 96.1 mmol/L (98-107) L 05/24/17 06:45 Carbon Dioxide 25 mmol/L (22-30) 05/24/17 06:45 Anion Gap 20 mmol/L 05/24/17 06:45 BUN 61 mg/dL (9-20) H 05/24/17 06:45 Creatinine 4.1 mg/dL (0.8-1.5) H 05/24/17 06:45 Estimated GFR 17 ml/min 05/24/17 06:45 BUN/Creatinine Ratio 15 % 05/24/17 06:45 Glucose 265 mg/dL (75-100) H 05/24/17 06:45 POC Glucose 267 (70-105) H 05/24/17 06:59 Lactic Acid 1.70 mmol/L (0.7-2.0) 05/21/17 15:16 Calcium 7.5 mg/dL (8.4-10.2) L 05/24/17 06:45 Phosphorus 7.00 mg/dL (2.5-4.5) H 05/21/17 06:27 Magnesium 1.90 mg/dL (1.7-2.3) 05/22/17 05:03 Total Bilirubin 0.20 mg/dL (0.1-1.2) 05/23/17 06:32 AST 14 units/L (5-40) 05/23/17 06:32 ALT 11 units/L (7-56) 05/23/17 06:32 Alkaline Phosphatase 61 units/L (35-129) 05/23/17 06:32 Total Creatine Kinase 122 units/L (55-170) 05/21/17 06:27 CK-MB (CK-2) 4.4 ng/mL (0.0-4.0) H 05/21/17 06:27 CK-MB (CK-2) Rel Index 3.6 (0-4) 05/21/17 06:27 Troponin T 0.113 ng/mL (0.00-0.029) H* 05/21/17 06:27 NT-Pro-B Natriuret Pep 4670 pg/mL (0-900) H 05/19/17 17:24 Total Protein 6.1 g/dL (6.3-8.2) L 05/23/17 06:32 Albumin 1.9 g/dL (3.9-5) L 05/23/17 06:32 Albumin/Globulin Ratio 0.5 % 05/23/17 06:32 Triglycerides 160 mg/dL (2-149) H 05/19/17 17:24 Cholesterol 151 mg/dL (50-199) 05/19/17 17:24 LDL Cholesterol Direct 93 mg/dL (50-130) 05/19/17 17:24 HDL Cholesterol 26 mg/dL (40-59) L 05/19/17 17:24 Cholesterol/HDL Ratio 5.80 % 05/19/17 17:24 TSH 1.390 mlU/mL (0.270-4.200) 05/20/17 15:28 Free T4 0.95 ng/dL (0.76-1.46) 05/20/17 15:28 PTH Intact 370.6 pg/mL (15-65) H 05/21/17 06:27 Urine Color Red (Yellow) 05/19/17 20:12 Urine Turbidity Turbid (Clear) 05/19/17 20:12 Urine pH 8.0 (5.0-7.0) H 05/19/17 20:12 Ur Specific [place] 1.018 (1.003-1.030) 05/19/17 20:12 Urine Protein 100 mg/dl mg/dL (Negative) 05/19/17 20:12 Urine Glucose (UA) Neg mg/dL (Negative) 05/19/17 20:12 Urine Ketones Neg mg/dL (Negative) 05/19/17 20:12 Urine Blood Lg (Negative) 05/19/17 20:12 Urine Nitrite Neg (Negative) 05/19/17 20:12 Urine Bilirubin Neg (Negative) 05/19/17 20:12 Urine Urobilinogen < 2.0 mg/dL (<2.0) 05/19/17 20:12 Ur Leukocyte Esterase Mod (Negative) 05/19/17 20:12 Urine WBC (Auto) > 182.0 /HPF (0.0-6.0) H 05/19/17 20:12 Urine RBC (Auto) > 182.0 /HPF (0.0-6.0) 05/19/17 20:12 Urine Mucus 3+ /HPF 05/19/17 20:12 Urine Creatinine < 4.2 mg/dL (0.1-20.0) 05/19/17 20:12 Urine Sodium 127 mmol/L 05/19/17 20:12 RENY Screen Negative (Negative) 05/20/17 05:52 Proteinase 3 (PR3) Ab <1.0 AI (<1.0) 05/20/17 05:52 Myeloperoxidase Ab <1.0 AI (<1.0) 05/20/17 05:52 Complement C3 113 mg/dL () 05/20/17 05:52 Complement C4 20 mg/dL () 05/20/17 05:52 Hepatitis A IgM Ab Non-reactive (NonReactive) 05/22/17 18:01 Hep Bs Antigen Non-reactive (Negative) 05/22/17 18:01 Hep B Core IgM Ab Non-reactive (NonReactive) 05/22/17 18:01 Hepatitis C Antibody Non-reactive (NonReactive) 05/22/17 18:01
[2017-05-24 13:23] LABS: Band Neutrophils # (Manual) 0.6 K/mm3; Basophils % (Manual) 0 % (0.0-1.8); Total Cells Counted 100
[2017-05-24 13:24] LABS: RBC Morphology Normal
--- NOTE | 2017-05-24 14:40 | Consultation ---
History of Present Illness - Reason for Consult Consult date: 05/24/17 sepsis Requesting physician: ANTHONY VALENTINO - History of Present Illness 82 years old male with history of hypertension, diabetes, BPH with chronic indwelling beltre; admitted on 05/19/17 due to generalized weakness and a fall. patient is a poor historian, still confused, unable to provide a history In the ED, initial temperature 97.5, heart rate 97, respirations 16, O2 sat 97% , blood pressure 129/68. Initial white count 13.8. Hemoglobin 13.9. Platelets 242. Lactic acid 3.4. Creatinine 6.9. Sodium 133. Urinalysis showed moderate leukocyte esterase and 182 white blood cells. RENY negative. ANCA are negative. CT of the abdomen showed gas forming infection in there urinary tract with moderate hydroureter in the left and mild hydroureter on the right. Ultrasound of the kidney showed moderate to severe right hydronephrosis with bladder calcification. Chest x-ray showed left small pleural effusion. Microbiology: Blood cultures: 3/6 E coli 3 of 4 bottles Urine cultures: 3/6 mixed caryn >100K Current Antimicrobials: Ceftriaxone 3/6 Previous Antimicrobials: Past History Past Medical History: diabetes, hypertension, other (BPH) Social history: Lives alone. denies: smoking, alcohol abuse, prescription drug abuse Medications and Allergies Allergies Allergy/AdvReac Type Severity Reaction Status Date / Time No Known Allergies Allergy Verified 05/19/17 16:46 Active Meds: Active Medications Acetaminophen (Tylenol) 650 mg PO Q4H PRN PRN Reason: Pain MILD(1-3)/Fever >100.5/[place] Last Admin: 05/20/17 02:35 Dose: 650 mg Amiodarone HCl (Cordarone) 400 mg PO BID [facility] Last Admin: 05/23/17 22:12 Dose: 400 mg Heparin Sodium (Porcine) (Heparin) 5,000 unit IV PRATIBHA PRN PRN Reason: hemodialysis Last Admin: 05/23/17 12:55 Dose: 5,000 unit Ceftriaxone Sodium 1 gm/ (Sodium Chloride) 20 mls @ 2 mls/min IV Q24HR@2200 [facility] Last Admin: 05/23/17 22:13 Dose: 2 mls/min Sodium Chloride (Nacl 0.9% 1000 Ml) 1,000 mls @ 75 mls/hr IV DIRECT [facility] Sodium Chloride (Nacl 0.9%) 100 mls @ 999 mls/hr IV PRATIBHA PRN PRN Reason: Hypotension Insulin Human Lispro (Humalog) 0 unit SUB-Q ACHS [facility]; Protocol Last Admin: 05/24/17 13:12 Dose: 4 unit Lorazepam (Ativan) 1 mg PO Q6H PRN PRN Reason: Agitation Last Admin: 05/21/17 14:38 Dose: 1 mg Metoprolol Tartrate (Lopressor) 50 mg PO BID [facility] Last Admin: 05/23/17 22:12 Dose: 50 mg Ondansetron HCl (Zofran) 4 mg IV Q8H PRN PRN Reason: Nausea And Vomiting Review of Systems ROS unobtainable: due to mental status Physical Examination - Physical Exam Narrative exam: General appearance: Alert in NAD, conversant, confused Eyes: anicteric sclerae, moist conjunctivae; no lid-lag; PERRLA HENT: Atraumatic; oropharynx clear with moist mucous membranes and no mucosal ulcerations/no oral thrush; normal hard and soft palate. Normal external ears. Neck: Trachea midline; supple, no thyromegaly or lymphadenopathy Lungs: CTA, with normal respiratory effort and no intercostal retractions CV: RRR, no murmurs Abdomen: Soft, TTP diffusely Extremities: No peripheral edema or extremity lymphadenopathy Skin: Normal temperature, turgor and texture; no rash, ulcers or subcutaneous nodules Psych: alert confused. Neuro: alert confused Moving all extermities Lines: fgley with hematuria - Constitutional Vitals: Vital Signs Temp Pulse Resp BP Pulse Ox 97.2 F L 69 18 173/84 98 05/24/17 08:53 05/24/17 08:53 05/24/17 08:53 05/24/17 08:53 05/24/17 08:53 Temperature -Last 24 Hours Temperature 97.2 F Temperature 97.8 F Temperature 98.1 F Temperature 98.2 F Temperature 98.1 F Temperature 97.8 F Results - Labs CBC & Chem 7: 05/24/17 06:45 05/24/17 06:45 Labs: Abnormal lab results 05/23/17 05/23/17 05/24/17 Range/Units 16:23 21:10 06:45 Monocytes % (Manual) 11.0 H (0.0-7.3) % Monocytes # (Manual) 1.1 H (0.0-0.8) K/mm3 Chloride (98-107) mmol/L BUN (9-20) mg/dL Creatinine (0.8-1.5) mg/dL Glucose (75-100) mg/dL POC Glucose 257 H 344 H (70-105) Calcium (8.4-10.2) mg/dL 05/24/17 05/24/17 Range/Units 06:45 06:59 Monocytes % (Manual) (0.0-7.3) % Monocytes # (Manual) (0.0-0.8) K/mm3 Chloride 96.1 L (98-107) mmol/L BUN 61 H (9-20) mg/dL Creatinine 4.1 H (0.8-1.5) mg/dL Glucose 265 H (75-100) mg/dL POC Glucose 267 H (70-105) Calcium 7.5 L (8.4-10.2) mg/dL Assessment and Plan Assessment: 1) Sepsis: Present on admission, manifested by tachycardia, leukocytosis, increased lactate. Etiology most likely UTI. Resolved. 2) Complicated CA-UTI: pt has a chronic indwelling beltre. Likely Secondary to Escherichia coli. -CT of the abdomen showed gas forming infection in there urinary tract with moderate hydroureter in the left and mild hydroureter on the right. -Ultrasound of the kidney showed moderate to severe right hydronephrosis with bladder calcification. -Urine cx + mixed bacteria >100K 3) E coli septicemia: likely from UTI 4) AMS 5) RAMOS-now on HD. RENY negative. ANCA are negative. 6) DM 7) Hyponatremia 8) BPH Plan: -repeat blood cultures -continue ceftriaxone -urology on board -renal started HD -upon discharge will do levaquin 500 mg PO q 48h until 06/03/17 I am signing off call me for questions Thank you for your consultation, will follow up with you. Carline Jensen MD Infectious Diseases Specialist [facility] M [phone] O [phone]
--- NOTE | 2017-05-24 15:38 | Progress Note ---
Assessment and Plan - Patient Problems (1) Acute renal failure superimposed on chronic kidney disease Current Visit: Yes Status: Acute Plan to address problem: Patient may well have chronic kidney disease which has progressed to end-stage renal disease. Follow renal indices following relief of obstruction. So far, no significant improvement other than expected with dialysis. If no improvement , will place patient at outpatient dialysis clinic and consider AV fistula placement prior to discharge if possible. We will have case management to start working on placement for now. I called patient's daughter, no answer. Left a message for her to call me back (2) Obstructive uropathy Current Visit: Yes Status: Acute Plan to address problem: Status post Valle catheter changed by urology. (3) Sepsis due to urinary tract infection Current Visit: Yes Status: Acute Plan to address problem: CT suggests gas-forming urinary tract infection. Continue antibiotics and follow up (4) Metabolic acidosis Current Visit: Yes Status: Acute Plan to address problem: Improving with dialysis. (5) Hypokalemia Current Visit: Yes Status: Acute (6) Metabolic encephalopathy Current Visit: Yes Status: Acute Plan to address problem: Improving with dialysis. Hemodialysis again in the morning (7) Type 2 diabetes mellitus with diabetic nephropathy Current Visit: Yes Status: Acute Plan to address problem: Blood sugar management by primary attending (8) Hypertensive chronic kidney disease with stage 5 chronic kidney disease or end stage renal disease Current Visit: Yes Status: Acute Plan to address problem: Follow blood pressure following fluid removal on dialysis Subjective Date of service: 05/24/17 Principal diagnosis: sepsis, ARF, Afib Interval history: Patient seen lying in bed. He has no complaints. Admits more appropriate today.. Objective - Exam Narrative Exam: Elderly male lying in bed in no acute distress HEENT: NCAT, pink oral mucous membrane Neck: Supple, no venous distention CVS: S1S2 RRR with no murmur, rub or gallop Chest: Clear to auscultation Abdomen: Protuberant, soft, nontender, no organomegaly, bowel sounds are present Extremities: 2+ edema Neuro: Awake, alert no focal deficits - Vital Signs Vital signs: Vital Signs - 12hr 05/24/17 05/24/17 05/24/17 04:25 06:48 08:53 Temperature 97.8 F 97.2 F L Pulse Rate 71 76 69 Respiratory 20 18 Rate Blood Pressure 187/88 173/84 O2 Sat by Pulse 97 98 Oximetry - Lab 05/24/17 06:45 05/24/17 06:45 Most recent lab results Calcium 7.5 mg/dL (8.4-10.2) L 05/24/17 06:45 Phosphorus 7.00 mg/dL (2.5-4.5) H 05/21/17 06:27 Magnesium 1.90 mg/dL (1.7-2.3) 05/22/17 05:03 Urine Creatinine < 4.2 mg/dL (0.1-20.0) 05/19/17 20:12 Urine Sodium 127 mmol/L 05/19/17 20:12
--- NOTE | 2017-05-24 20:17 | Progress Note ---
Assessment and Plan Assessment: Paroxysmal atrial fibrillation/atrial flutter with RVR --> SR Acute renal failure on CKD - initiated on HD Elevated troponin - ECG with no acute ischemic changes; pt denies chest pain; currently nonspecific Mod to severe right-sided hydronephrosis Generalized weakness Persistent confusion - suspect uremic encephalopathy per nephrology UTI / sepsis Metabolic acidosis Hematuria - H/H currently stable BPH Chronic indwelling Valle Hypokalemia Moderate pulm HTN - RVSP 53mmHg Plan: No significant improvement in kidney function. Pt has converted to SR. D/c amio gtt and initiate PO amio 400mg BID. Increase lopressor to 50mg PO BID for BP control. No systemic anticoagulation at this time in regards to AFib/AFlutter in setting of gross hematuria. Hematuria appears to be improving. Can consider AC if/when okay per urology and once mental status improves - pt it at high risk for falls at this time. Subjective Date of service: 05/23/17 Principal diagnosis: sepsis, ARF, Afib Interval history: patient is comfortable, cannot give much history. Objective Vital Signs Temp Pulse Resp BP Pulse Ox 05/24/17 17:23 97.7 F 67 20 171/84 98 05/24/17 12:26 97.3 F L 69 20 181/86 98 05/24/17 08:53 97.2 F L 69 18 173/84 98 05/24/17 06:48 76 05/24/17 04:25 97.8 F 71 20 187/88 97 05/24/17 00:17 98.1 F 69 20 165/70 97 05/23/17 22:12 76 160/76 05/23/17 20:27 98.2 F 76 20 160/76 95 - Physical Examination General: No Apparent Distress, Other (confused) HEENT: Positive: PERRL, Normocephaly, Mucus Membranes Moist Neck: Positive: neck supple, trachea midline Cardiac: Positive: Regular Rhythm Lungs: Positive: Normal Breath Sounds Neuro: Positive: Grossly Intact Abdomen: Positive: Soft. Negative: Tender Skin: Positive: Clear. Negative: Rash, Wound Musculoskeletal: No Fluid Collection, No Pain, Normal Range of Motion Extremities: Absent: edema - Labs and Meds CBC 05/24/17 Range/Units 06:45 WBC 10.1 (4.5-11.0) K/mm3 RBC 4.19 (3.65-5.03) M/mm3 Hgb 12.3 (11.8-15.2) gm/dl Hct 36.7 (35.5-45.6) % Plt Count 140 (140-440) K/mm3 Comprehensive Metabolic Panel 05/24/17 Range/Units 06:45 Sodium 137 (137-145) mmol/L Potassium 3.6 (3.6-5.0) mmol/L Chloride 96.1 L (98-107) mmol/L Carbon Dioxide 25 (22-30) mmol/L BUN 61 H (9-20) mg/dL Creatinine 4.1 H (0.8-1.5) mg/dL Glucose 265 H (75-100) mg/dL Calcium 7.5 L (8.4-10.2) mg/dL - Imaging and Cardiology EKG: report reviewed, image reviewed Echo: pending
--- NOTE | 2017-05-24 20:19 | Progress Note ---
Assessment and Plan Assessment: Paroxysmal atrial fibrillation/atrial flutter with RVR --> SR Acute renal failure on CKD - initiated on HD Elevated troponin - ECG with no acute ischemic changes; pt denies chest pain; currently nonspecific Mod to severe right-sided hydronephrosis Generalized weakness Persistent confusion - suspect uremic encephalopathy per nephrology UTI / sepsis Metabolic acidosis Hematuria - H/H currently stable BPH Chronic indwelling Valle Hypokalemia Moderate pulm HTN - RVSP 53mmHg Plan:No change in cardiac status. No significant improvement in kidney function. Pt has converted to SR. D/c amio gtt and initiate PO amio 400mg BID. Increase lopressor to 50mg PO BID for BP control. No systemic anticoagulation at this time in regards to AFib/AFlutter in setting of gross hematuria. Hematuria appears to be improving. Can consider AC if/when okay per urology and once mental status improves - pt it at high risk for falls at this time. Subjective Principal diagnosis: sepsis, ARF, Afib Interval history: patient is comfortable, cannot give much history. Objective Vital Signs Temp Pulse Resp BP Pulse Ox 05/24/17 17:23 97.7 F 67 20 171/84 98 05/24/17 12:26 97.3 F L 69 20 181/86 98 05/24/17 08:53 97.2 F L 69 18 173/84 98 05/24/17 06:48 76 05/24/17 04:25 97.8 F 71 20 187/88 97 05/24/17 00:17 98.1 F 69 20 165/70 97 05/23/17 22:12 76 160/76 05/23/17 20:27 98.2 F 76 20 160/76 95 - Physical Examination General: No Apparent Distress, Other (confused) HEENT: Positive: PERRL, Normocephaly, Mucus Membranes Moist Neck: Positive: neck supple, trachea midline Cardiac: Positive: Regular Rhythm Lungs: Positive: Normal Breath Sounds Neuro: Positive: Grossly Intact Abdomen: Positive: Soft. Negative: Tender Skin: Positive: Clear. Negative: Rash, Wound Musculoskeletal: No Fluid Collection, No Pain, Normal Range of Motion Extremities: Absent: edema - Labs and Meds CBC 05/24/17 Range/Units 06:45 WBC 10.1 (4.5-11.0) K/mm3 RBC 4.19 (3.65-5.03) M/mm3 Hgb 12.3 (11.8-15.2) gm/dl Hct 36.7 (35.5-45.6) % Plt Count 140 (140-440) K/mm3 Comprehensive Metabolic Panel 05/24/17 Range/Units 06:45 Sodium 137 (137-145) mmol/L Potassium 3.6 (3.6-5.0) mmol/L Chloride 96.1 L (98-107) mmol/L Carbon Dioxide 25 (22-30) mmol/L BUN 61 H (9-20) mg/dL Creatinine 4.1 H (0.8-1.5) mg/dL Glucose 265 H (75-100) mg/dL Calcium 7.5 L (8.4-10.2) mg/dL - Imaging and Cardiology EKG: report reviewed, image reviewed Echo: pending
[2017-05-24] MEDS: cefTRIAXone 1 GM in NACL 0.9% 20 ML IV SCH (22:00)
[2017-05-25 06:40] LABS: Hematocrit 37.3 % (35.5-45.6); Hemoglobin 12.6 gm/dl (11.8-15.2); Mean Corpuscular HGB Conc 34 % (32-34); Mean Corpuscular Hemoglobin 29 pg (28-32); Mean Corpuscular Volume 87 fl (84-94); Platelet Count 153 K/mm3 (140-440); Red Blood Count 4.29 M/mm3 (3.65-5.03); Red Cell Distribution Width 14.4 % (13.2-15.2)
[2017-05-25 06:55] LABS: Calcium 7.6 mg/dL (8.4-10.2)
[2017-05-25 07:52] LABS: Band Neutrophils # (Manual) 0.8 K/mm3; Basophils % (Manual) 0 % (0.0-1.8); Large Platelets Few; RBC Morphology Normal; Total Cells Counted 100
[2017-05-25] MEDS: CORDARONE PO SCH ×2 (09:12→23:09)
[2017-05-25] MEDS: LOPRESSOR PO SCH ×2 (09:12→23:09)
[2017-05-25] MEDS: HumaLOG SUB-Q SCH ×4 (09:13→23:11)
--- NOTE | 2017-05-25 09:19 | Progress Note ---
Assessment and Plan - Patient Problems (1) Acute renal failure superimposed on chronic kidney disease Current Visit: Yes Status: Acute Plan to address problem: Patient may well have chronic kidney disease which has progressed to end-stage renal disease. Follow renal indices following relief of obstruction. So far, no significant improvement other than expected with dialysis. If no improvement , will place patient at outpatient dialysis clinic and consider AV fistula placement prior to discharge if possible. We will have case management to start working on placement for now. I discussed with patient's daughter about outpatient dialysis placement. She is also concerned about subacute rehabilitation since patient unable to walk. Will request evaluation (2) Obstructive uropathy Current Visit: Yes Status: Acute Plan to address problem: Status post Valle catheter changed by urology. (3) Sepsis due to urinary tract infection Current Visit: Yes Status: Acute Plan to address problem: CT suggests gas-forming urinary tract infection. Continue antibiotics and follow up (4) Metabolic acidosis Current Visit: Yes Status: Acute Plan to address problem: Improving with dialysis. (5) Hypokalemia Current Visit: Yes Status: Acute (6) Metabolic encephalopathy Current Visit: Yes Status: Acute Plan to address problem: Improving with dialysis. Hemodialysis again in the morning (7) Type 2 diabetes mellitus with diabetic nephropathy Current Visit: Yes Status: Acute Plan to address problem: Blood sugar management by primary attending (8) Hypertensive chronic kidney disease with stage 5 chronic kidney disease or end stage renal disease Current Visit: Yes Status: Acute Plan to address problem: Follow blood pressure following fluid removal on dialysis Subjective Date of service: 05/25/17 Principal diagnosis: sepsis, ARF, Afib Interval history: Patient seen lying in bed. He is eating breakfast. His daughter is at the bedside. He denies any chest pain, shortness of nausea or vomiting. Objective - Exam Narrative Exam: Elderly male lying in bed in no acute distress HEENT: NCAT, pink oral mucous membrane Neck: Supple, no venous distention CVS: S1S2 RRR with no murmur, rub or gallop Chest: Clear to auscultation Abdomen: Protuberant, soft, nontender, no organomegaly, bowel sounds are present Extremities: 2+ edema Neuro: Awake, alert no focal deficits - Vital Signs Vital signs: Vital Signs - 12hr 05/24/17 05/25/17 05/25/17 22:00 00:10 04:36 Temperature 97.4 F L 97.4 F L Pulse Rate 74 67 Respiratory 18 18 Rate Blood Pressure 149/70 163/88 167/86 O2 Sat by Pulse 99 Oximetry 05/25/17 05/25/17 05/25/17 04:38 05:37 08:10 Temperature 98.3 F Pulse Rate 65 71 Respiratory 18 Rate Blood Pressure 168/82 162/76 O2 Sat by Pulse 97 Oximetry 05/25/17 09:12 Temperature Pulse Rate 80 Respiratory Rate Blood Pressure 162/76 O2 Sat by Pulse Oximetry - Lab 05/25/17 05:55 05/25/17 05:55 Most recent lab results Calcium 7.6 mg/dL (8.4-10.2) L 05/25/17 05:55 Phosphorus 7.00 mg/dL (2.5-4.5) H 05/21/17 06:27 Magnesium 1.90 mg/dL (1.7-2.3) 05/22/17 05:03 Urine Creatinine < 4.2 mg/dL (0.1-20.0) 05/19/17 20:12 Urine Sodium 127 mmol/L 05/19/17 20:12
--- NOTE | 2017-05-25 09:56 | Progress Note ---
Assessment and Plan Assessment and plan: Sepsis. Continue IV antibiotics. Etiology secondary to UTI/Escherichia coli bacteremia. Escherichia coli bacteremia. ID following. Atrial fibrillation with RVR. Pt has converted to SR. D/cd amio gtt. Cont. amio 400mg BID and lopressor to 50mg PO BID for BP control. Cardiology recommended no systemic anticoagulation at this time in regards to AFib/ AFlutter in setting of gross hematuria. Can consider AC if/when okay per urology and once mental status improves - pt is at high risk for falls at this time. Complicated CA-UTI with right Hydronephrosis . Valle catheter changed. Urology following. CT of the abdomen showed gas forming infection in there urinary tract with moderate hydroureter in the left and mild hydroureter on the right. Ultrasound of the kidney showed moderate to severe right hydronephrosis with bladder calcification. 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 Etiology secondary to acute kidney injury superimposed CK-MB stage IV due to right hydronephrosis and UTI/sepsis. Baseline Cr around 2.87mg/dl in 05/2016. Patient is status post catheter placement and hemodialysis. Follow BMP. Patient could potentially have chronic kidney disease which has progressed to end-stage renal disease. Continue to follow renal indices following relief of obstruction. If no improvement, will place patient at outpatient dialysis clinic and consider AV fistula placement. We will have case management to start working on placement for now Toxic metabolic encephalopathy. Etiology likely secondary to uremic encephalopathy and sepsis. Continue to treat underlying causes. Abnormal cardiac enzymes BPH. Per urology Hypertension. Continue antihypertensive medications as needed. Moderate pulmonary hypertension. Consider pulmonary consultation Diabetes mellitus type II. Continue Accu-Cheks and slight scale insulin. Gross hematuria. As above. Patient with indwelling Valle catheter changed by Urologist 05/20/17 History Interval history: No new issues overnight. Hospitalist Physical - Constitutional Vitals: Temp Pulse Resp BP Pulse Ox 98.3 F 80 18 162/76 97 05/25/17 08:10 05/25/17 09:12 05/25/17 08:10 05/25/17 09:12 05/25/17 04:38 General appearance: Present: no acute distress, well-nourished - EENT Eyes: Present: PERRL, EOM intact ENT: hearing intact, clear oral mucosa, dentition normal - Neck Neck: Present: supple, normal ROM - Respiratory Respiratory effort: normal Respiratory: bilateral: CTA - Cardiovascular Rhythm: regular Heart Sounds: Present: S1 & S2. Absent: gallop, rub - Extremities Extremities: no ischemia, No edema, Full ROM - Abdominal General gastrointestinal: soft, non-tender, non-distended, normal bowel sounds - Integumentary Integumentary: Present: clear, warm, dry - Neurologic Neurologic: CNII-XII intact, moves all extremities Results - Labs CBC & Chem 7: 05/25/17 05:55 05/25/17 05:55 Labs: Laboratory Last Values WBC 10.2 K/mm3 (4.5-11.0) 05/25/17 05:55 RBC 4.29 M/mm3 (3.65-5.03) 05/25/17 05:55 Hgb 12.6 gm/dl (11.8-15.2) 05/25/17 05:55 Hct 37.3 % (35.5-45.6) 05/25/17 05:55 MCV 87 fl (84-94) 05/25/17 05:55 MCH 29 pg (28-32) 05/25/17 05:55 MCHC 34 % (32-34) 05/25/17 05:55 RDW 14.4 % (13.2-15.2) 05/25/17 05:55 Plt Count 153 K/mm3 (140-440) 05/25/17 05:55 [place] % (Auto) Agricultural Education Teacher 05/23/17 06:32 Add Manual Diff Complete 05/25/17 05:55 Total Counted 100 05/25/17 05:55 Seg Neuts % (Manual) 70.0 % (40.0-70.0) 05/25/17 05:55 Band Neutrophils % 8.0 % 05/25/17 05:55 Lymphocytes % (Manual) 19.0 % (13.4-35.0) 05/25/17 05:55 Reactive Lymphs % (Man) 0 % 05/25/17 05:55 Monocytes % (Manual) 1.0 % (0.0-7.3) 05/25/17 05:55 Eosinophils % (Manual) 2.0 % (0.0-4.3) 05/25/17 05:55 Basophils % (Manual) 0 % (0.0-1.8) 05/25/17 05:55 Metamyelocytes % 0 % 05/25/17 05:55 Myelocytes % 0 % 05/25/17 05:55 Promyelocytes % 0 % 05/25/17 05:55 Blast Cells % 0 % 05/25/17 05:55 Nucleated RBC % Not Reportable 05/25/17 05:55 Seg Neutrophils # Man 7.1 K/mm3 (1.8-7.7) 05/25/17 05:55 Band Neutrophils # 0.8 K/mm3 05/25/17 05:55 Lymphocytes # (Manual) 1.9 K/mm3 (1.2-5.4) 05/25/17 05:55 Abs React Lymphs (Man) 0.0 K/mm3 05/25/17 05:55 Monocytes # (Manual) 0.1 K/mm3 (0.0-0.8) 05/25/17 05:55 Eosinophils # (Manual) 0.2 K/mm3 (0.0-0.4) 05/25/17 05:55 Basophils # (Manual) 0.0 K/mm3 (0.0-0.1) 05/25/17 05:55 Metamyelocytes # 0.0 K/mm3 05/25/17 05:55 Myelocytes # 0.0 K/mm3 05/25/17 05:55 Promyelocytes # 0.0 K/mm3 05/25/17 05:55 Blast Cells # 0.0 K/mm3 05/25/17 05:55 WBC Morphology Not Reportable 05/25/17 05:55 Hypersegmented Neuts Not Reportable 05/25/17 05:55 Hyposegmented Neuts Not Reportable 05/25/17 05:55 Hypogranular Neuts Not Reportable 05/25/17 05:55 Smudge Cells Not Reportable 05/25/17 05:55 Toxic Granulation Not Reportable 05/25/17 05:55 Toxic Vacuolation Not Reportable 05/25/17 05:55 Dohle Bodies Not Reportable 05/25/17 05:55 Pelger-Huet Anomaly Not Reportable 05/25/17 05:55 Romina Rods Not Reportable 05/25/17 05:55 Platelet Estimate Appears normal 05/25/17 05:55 Clumped Platelets Not Reportable 05/25/17 05:55 Plt Clumps, EDTA Not Reportable 05/25/17 05:55 Large Platelets Few 05/25/17 05:55 Giant Platelets Not Reportable 05/25/17 05:55 Platelet Satelliting Not Reportable 05/25/17 05:55 Plt Morphology Comment Not Reportable 05/25/17 05:55 RBC Morphology Normal 05/25/17 05:55 Dimorphic RBCs Not Reportable 05/25/17 05:55 Polychromasia Not Reportable 05/25/17 05:55 Hypochromasia Not Reportable 05/25/17 05:55 Poikilocytosis Not Reportable 05/25/17 05:55 Anisocytosis Not Reportable 05/25/17 05:55 Microcytosis Not Reportable 05/25/17 05:55 Macrocytosis Not Reportable 05/25/17 05:55 Spherocytes Not Reportable 05/25/17 05:55 Pappenheimer Bodies Not Reportable 05/25/17 05:55 Sickle Cells Not Reportable 05/25/17 05:55 Target Cells Not Reportable 05/25/17 05:55 Tear Drop Cells Not Reportable 05/25/17 05:55 Ovalocytes Not Reportable 05/25/17 05:55 Helmet Cells Not Reportable 05/25/17 05:55 Gerard-Clements Bodies Not Reportable 05/25/17 05:55 Pocola Rings Not Reportable 05/25/17 05:55 [place] Cells Not Reportable 05/25/17 05:55 Bite Cells Not Reportable 05/25/17 05:55 Crenated Cell Not Reportable 05/25/17 05:55 Elliptocytes Not Reportable 05/25/17 05:55 Acanthocytes (Spur) Not Reportable 05/25/17 05:55 Rouleaux Not Reportable 05/25/17 05:55 Hemoglobin C Crystals Not Reportable 05/25/17 05:55 Schistocytes Not Reportable 05/25/17 05:55 Malaria parasites Not Reportable 05/25/17 05:55 Bob Bodies Not Reportable 05/25/17 05:55 Hem Pathologist Commnt No 05/25/17 05:55 PT 16.0 Sec. (12.2-14.9) H 05/21/17 06:27 INR 1.21 (0.87-1.13) H 05/21/17 06:27 Sodium 138 mmol/L (137-145) 05/25/17 05:55 Potassium 3.5 mmol/L (3.6-5.0) L 05/25/17 05:55 Chloride 97.7 mmol/L (98-107) L 05/25/17 05:55 Carbon Dioxide 25 mmol/L (22-30) 05/25/17 05:55 Anion Gap 19 mmol/L 05/25/17 05:55 BUN 68 mg/dL (9-20) H 05/25/17 05:55 Creatinine 4.3 mg/dL (0.8-1.5) H 05/25/17 05:55 Estimated GFR 16 ml/min 05/25/17 05:55 BUN/Creatinine Ratio 16 % 05/25/17 05:55 Glucose 193 mg/dL (75-100) H 05/25/17 05:55 POC Glucose 332 (70-105) H 05/24/17 19:04 Lactic Acid 1.70 mmol/L (0.7-2.0) 05/21/17 15:16 Calcium 7.6 mg/dL (8.4-10.2) L 05/25/17 05:55 Phosphorus 7.00 mg/dL (2.5-4.5) H 05/21/17 06:27 Magnesium 1.90 mg/dL (1.7-2.3) 05/22/17 05:03 Total Bilirubin 0.20 mg/dL (0.1-1.2) 05/23/17 06:32 AST 14 units/L (5-40) 05/23/17 06:32 ALT 11 units/L (7-56) 05/23/17 06:32 Alkaline Phosphatase 61 units/L (35-129) 05/23/17 06:32 Total Creatine Kinase 122 units/L (55-170) 05/21/17 06:27 CK-MB (CK-2) 4.4 ng/mL (0.0-4.0) H 05/21/17 06:27 CK-MB (CK-2) Rel Index 3.6 (0-4) 05/21/17 06:27 Troponin T 0.113 ng/mL (0.00-0.029) H* 05/21/17 06:27 NT-Pro-B Natriuret Pep 4670 pg/mL (0-900) H 05/19/17 17:24 Total Protein 6.1 g/dL (6.3-8.2) L 05/23/17 06:32 Albumin 1.9 g/dL (3.9-5) L 05/23/17 06:32 Albumin/Globulin Ratio 0.5 % 05/23/17 06:32 Triglycerides 160 mg/dL (2-149) H 05/19/17 17:24 Cholesterol 151 mg/dL (50-199) 05/19/17 17:24 LDL Cholesterol Direct 93 mg/dL (50-130) 05/19/17 17:24 HDL Cholesterol 26 mg/dL (40-59) L 05/19/17 17:24 Cholesterol/HDL Ratio 5.80 % 05/19/17 17:24 TSH 1.390 mlU/mL (0.270-4.200) 05/20/17 15:28 Free T4 0.95 ng/dL (0.76-1.46) 05/20/17 15:28 PTH Intact 370.6 pg/mL (15-65) H 05/21/17 06:27 Urine Color Red (Yellow) 05/19/17 20:12 Urine Turbidity Turbid (Clear) 05/19/17 20:12 Urine pH 8.0 (5.0-7.0) H 05/19/17 20:12 Ur Specific Bynum 1.018 (1.003-1.030) 05/19/17 20:12 Urine Protein 100 mg/dl mg/dL (Negative) 05/19/17 20:12 Urine Glucose (UA) Neg mg/dL (Negative) 05/19/17 20:12 Urine Ketones Neg mg/dL (Negative) 05/19/17 20:12 Urine Blood Lg (Negative) 05/19/17 20:12 Urine Nitrite Neg (Negative) 05/19/17 20:12 Urine Bilirubin Neg (Negative) 05/19/17 20:12 Urine Urobilinogen < 2.0 mg/dL (<2.0) 05/19/17 20:12 Ur Leukocyte Esterase Mod (Negative) 05/19/17 20:12 Urine WBC (Auto) > 182.0 /HPF (0.0-6.0) H 05/19/17 20:12 Urine RBC (Auto) > 182.0 /HPF (0.0-6.0) 05/19/17 20:12 Urine Mucus 3+ /HPF 05/19/17 20:12 Urine Creatinine < 4.2 mg/dL (0.1-20.0) 05/19/17 20:12 Urine Sodium 127 mmol/L 05/19/17 20:12 RENY Screen Negative (Negative) 05/20/17 05:52 Proteinase 3 (PR3) Ab <1.0 AI (<1.0) 05/20/17 05:52 Myeloperoxidase Ab <1.0 AI (<1.0) 05/20/17 05:52 Complement C3 113 mg/dL () 05/20/17 05:52 Complement C4 20 mg/dL () 05/20/17 05:52 Hepatitis A IgM Ab Non-reactive (NonReactive) 05/22/17 18:01 Hep Bs Antigen Non-reactive (Negative) 05/22/17 18:01 Hep B Core IgM Ab Non-reactive (NonReactive) 05/22/17 18:01 Hepatitis C Antibody Non-reactive (NonReactive) 05/22/17 18:01
[2017-05-25] MEDS ORDERED: HumaLOG SUB-Q ONE (10:00)
--- NOTE | 2017-05-25 11:33 | Progress Note ---
Assessment and Plan Assessment: Transient atrial fibrillation/atrial flutter with RVR --> SR Acute renal failure on CKD - initiated on HD Elevated troponin - ECG with no acute ischemic changes; pt denies chest pain; currently nonspecific Mod to severe right-sided hydronephrosis Generalized weakness Persistent confusion - suspect uremic encephalopathy per nephrology UTI / sepsis Metabolic acidosis Hematuria - H/H currently stable BPH Chronic indwelling Valle Hypokalemia Moderate pulm HTN - RVSP 53mmHg Plan: Currently stable cardiac status. Cont present regimen. No systemic anticoagulation at this time given transient episode of AFib/ AFlutter and also current AMS with high risk for falls. The patient has been seen in conjunction with Dr. Peñaloza who agrees with the assessment and plan of care. Subjective Date of service: 05/25/17 Principal diagnosis: sepsis, ARF, Afib Interval history: pt resting in bed, no current complaints. Objective Last Vital Signs Temp 98.3 F 05/25/17 08:10 Pulse 80 05/25/17 10:00 Resp 19 05/25/17 10:00 BP 162/76 05/25/17 09:12 Pulse Ox 97 05/25/17 04:38 - Physical Examination General: No Apparent Distress, Other (confused) HEENT: Positive: PERRL, Normocephaly, Mucus Membranes Moist Neck: Positive: neck supple, trachea midline Cardiac: Positive: Reg Rate and Rhythm, S1/S2 Lungs: Positive: clear to auscultation Neuro: Positive: Grossly Intact Abdomen: Positive: Soft. Negative: Tender Skin: Positive: Clear. Negative: Rash, Wound Musculoskeletal: No Fluid Collection, No Pain, Normal Range of Motion Extremities: Absent: edema - Labs and Meds CBC 05/25/17 Range/Units 05:55 WBC 10.2 (4.5-11.0) K/mm3 RBC 4.29 (3.65-5.03) M/mm3 Hgb 12.6 (11.8-15.2) gm/dl Hct 37.3 (35.5-45.6) % Plt Count 153 (140-440) K/mm3 Comprehensive Metabolic Panel 05/25/17 Range/Units 05:55 Sodium 138 (137-145) mmol/L Potassium 3.5 L (3.6-5.0) mmol/L Chloride 97.7 L (98-107) mmol/L Carbon Dioxide 25 (22-30) mmol/L BUN 68 H (9-20) mg/dL Creatinine 4.3 H (0.8-1.5) mg/dL Glucose 193 H (75-100) mg/dL Calcium 7.6 L (8.4-10.2) mg/dL - Imaging and Cardiology EKG: report reviewed, image reviewed Echo: report reviewed - Telemetry EKG Rhythm: Sinus Rhythm
[2017-05-25] MEDS ORDERED: NACL 0.9 (PRIMING MACHINE ONLY DIALYSIS) MC ONE (14:58)
--- NOTE | 2017-05-25 16:13 | Progress Note ---
Assessment and Plan Assessment: 1) Sepsis: better. Etiology most likely UTI. Resolved. 2) Complicated CA-UTI: pt has a chronic indwelling beltre. Likely Secondary to Escherichia coli. -CT of the abdomen showed gas forming infection in there urinary tract with moderate hydroureter in the left and mild hydroureter on the right. -Ultrasound of the kidney showed moderate to severe right hydronephrosis with bladder calcification. -Urine cx + mixed bacteria >100K 3) E coli septicemia: likely from UTI. Repeat blood cx so far negative. 4) AMS 5) RAMOS-now on HD. RENY negative. ANCA are negative. 6) DM 7) Hyponatremia 8) BPH Plan: -f/u repeat blood cultures -continue ceftriaxone while inpatient -urology on board -upon discharge will do levaquin 500 mg PO q 48h until 06/03/17 I am signing off call me for questions Thank you for your consultation, will follow up with you. Carline Jensen MD Infectious Diseases Specialist [facility] [phone] Subjective Date of service: 05/25/17 Principal diagnosis: sepsis, ARF, Afib Interval history: Feels better, currently on HD, no fever. Microbiology: Blood cultures: 05/19 E coli 3 of 4 bottles 05/24 ngtd Urine cultures: / mixed caryn >100K Current Antimicrobials: Ceftriaxone 3/6 Previous Antimicrobials: Objective - Exam Narrative Exam: General appearance: Alert in NAD, conversant, confused Eyes: anicteric sclerae, moist conjunctivae; no lid-lag; PERRLA HENT: Atraumatic; oropharynx clear with moist mucous membranes and no mucosal ulcerations/no oral thrush; normal hard and soft palate. Normal external ears. Neck: Trachea midline; supple, no thyromegaly or lymphadenopathy Lungs: CTA, with normal respiratory effort and no intercostal retractions CV: RRR, no murmurs Abdomen: Soft, TTP diffusely Extremities: No peripheral edema or extremity lymphadenopathy Skin: Normal temperature, turgor and texture; no rash, ulcers or subcutaneous nodules Psych: alert confused. Neuro: alert confused Moving all extermities Lines: [place] with hematuria - Constitutional Vitals: Vital Signs Temp Pulse Resp BP Pulse Ox 98.3 F 69 18 169/80 97 05/25/17 12:16 05/25/17 12:16 05/25/17 12:16 05/25/17 12:16 05/25/17 12:16 Temperature -Last 24 Hours Temperature 98.3 F Temperature 98.3 F Temperature 97.4 F Temperature 97.4 F Temperature 98.1 F Temperature 97.7 F - Labs CBC & Chem 7: 05/25/17 05:55 05/25/17 05:55 Labs: Abnormal lab results 05/24/17 05/24/17 05/25/17 Range/Units 17:32 19:04 05:55 Potassium 3.5 L (3.6-5.0) mmol/L Chloride 97.7 L (98-107) mmol/L BUN 68 H (9-20) mg/dL Creatinine 4.3 H (0.8-1.5) mg/dL Glucose 193 H (75-100) mg/dL POC Glucose 235 H 332 H (70-105) Calcium 7.6 L (8.4-10.2) mg/dL 05/25/17 05/25/17 Range/Units 08:17 12:25 Potassium (3.6-5.0) mmol/L Chloride (98-107) mmol/L BUN (9-20) mg/dL Creatinine (0.8-1.5) mg/dL Glucose (75-100) mg/dL POC Glucose 209 H 272 H (70-105) Calcium (8.4-10.2) mg/dL
[2017-05-26 06:44] LABS: Hematocrit 37.1 % (35.5-45.6); Hemoglobin 12.3 gm/dl (11.8-15.2); Mean Corpuscular HGB Conc 33 % (32-34); Mean Corpuscular Hemoglobin 29 pg (28-32); Mean Corpuscular Volume 87 fl (84-94); Platelet Count 116 K/mm3 (140-440); Red Blood Count 4.25 M/mm3 (3.65-5.03); Red Cell Distribution Width 14.2 % (13.2-15.2)
[2017-05-26 06:55] LABS: Calcium 7.5 mg/dL (8.4-10.2)
[2017-05-26 08:28] LABS: Band Neutrophils # (Manual) 0.6 K/mm3; Basophils % (Manual) 0 % (0.0-1.8); Total Cells Counted 100
[2017-05-26 08:29] LABS: RBC Morphology Normal
[2017-05-26] MEDS ORDERED: NACL 0.9% 100 ML IV PRN (08:37)
--- NOTE | 2017-05-26 08:37 | Progress Note ---
Assessment and Plan - Patient Problems (1) Acute renal failure superimposed on chronic kidney disease Current Visit: Yes Status: Acute Plan to address problem: Patient may well have chronic kidney disease which has progressed to end-stage renal disease. Follow renal indices following relief of obstruction. So far, no significant improvement other than expected with dialysis. Working on placing patient at outpatient dialysis clinic and get AV fistula placement as an Out Patient when infection issues resolved. Case management working on placement at outpatient dialysis and subacute rehabilitation. Dialysis again today fluid removal only due to volume overload (2) Obstructive uropathy Current Visit: Yes Status: Acute Plan to address problem: Status post Valle catheter changed by urology. (3) Sepsis due to urinary tract infection Current Visit: Yes Status: Acute Plan to address problem: CT suggests gas-forming urinary tract infection. Continue antibiotics and follow up (4) Metabolic acidosis Current Visit: Yes Status: Acute Plan to address problem: Improving with dialysis. (5) Hypokalemia Current Visit: Yes Status: Acute Plan to address problem: Replete (6) Metabolic encephalopathy Current Visit: Yes Status: Acute Plan to address problem: Improving with dialysis. Hemodialysis again in the morning (7) Type 2 diabetes mellitus with diabetic nephropathy Current Visit: Yes Status: Acute Plan to address problem: Blood sugar management by primary attending (8) Hypertensive chronic kidney disease with stage 5 chronic kidney disease or end stage renal disease Current Visit: Yes Status: Acute Plan to address problem: Follow blood pressure following fluid removal on dialysis Subjective Date of service: 05/26/17 Principal diagnosis: sepsis, ARF, Afib Interval history: Patient seen lying in bed. He has no C/o. He denies any chest pain, shortness of nausea or vomiting. Objective - Exam Narrative Exam: Elderly male lying in bed in no acute distress HEENT: NCAT, pink oral mucous membrane Neck: Supple, no venous distention CVS: S1S2 RRR with no murmur, rub or gallop Chest: Clear to auscultation Abdomen: Protuberant, soft, nontender, no organomegaly, bowel sounds are present Extremities: 2+ edema, Valle draining bloody urine Neuro: Awake, alert no focal deficits - Vital Signs Vital signs: Vital Signs - 12hr 05/25/17 05/25/17 05/26/17 21:58 22:00 00:15 Temperature 97.9 F 98.6 F Pulse Rate 75 69 Pulse Rate [ 68 Apical] Respiratory 18 Rate Blood Pressure 186/95 [Left] 05/26/17 04:30 Temperature 98.7 F Pulse Rate 69 Pulse Rate [ Apical] Respiratory 18 Rate Blood Pressure 181/85 [Left] - Lab 05/26/17 06:05 05/26/17 06:05 Most recent lab results Calcium 7.5 mg/dL (8.4-10.2) L 05/26/17 06:05 Phosphorus 7.00 mg/dL (2.5-4.5) H 05/21/17 06:27 Magnesium 1.90 mg/dL (1.7-2.3) 05/22/17 05:03 Urine Creatinine < 4.2 mg/dL (0.1-20.0) 05/19/17 20:12 Urine Sodium 127 mmol/L 05/19/17 20:12
[2017-05-26] MEDS: LOPRESSOR PO SCH ×2 (09:29→21:07)
[2017-05-26] MEDS: HumaLOG SUB-Q SCH ×4 (09:30→21:52)
[2017-05-26] MEDS: CORDARONE PO SCH ×2 (09:30→21:06)
--- NOTE | 2017-05-26 10:59 | Progress Note ---
Assessment and Plan Assessment: Transient atrial fibrillation/atrial flutter with RVR --> SR Acute renal failure on CKD - initiated on HD Elevated troponin - ECG with no acute ischemic changes; pt denies chest pain; currently nonspecific Mod to severe right-sided hydronephrosis Generalized weakness Persistent confusion - suspect uremic encephalopathy per nephrology UTI / sepsis Metabolic acidosis Hematuria - H/H currently stable BPH Chronic indwelling Valle Hypokalemia Moderate pulm HTN - RVSP 53mmHg Plan: Currently stable cardiac status. Decrease PO amio to 200mg BID. No systemic anticoagulation at this time given transient episode of AFib/ AFlutter and also current AMS with high risk for falls. The patient has been seen in conjunction with Dr. Peñaloza who agrees with the assessment and plan of care. Subjective Date of service: 05/26/17 Principal diagnosis: sepsis, ARF, Afib Interval history: pt resting in bed, no current complaints. Objective Last Vital Signs Temp 98.7 F 05/26/17 04:30 Pulse 69 05/26/17 09:29 Resp 18 05/26/17 04:30 BP 181/85 05/26/17 09:29 Pulse Ox 97 05/25/17 19:37 - Physical Examination General: No Apparent Distress, Other (confused) HEENT: Positive: PERRL, Normocephaly, Mucus Membranes Moist Neck: Positive: neck supple, trachea midline Cardiac: Positive: Reg Rate and Rhythm, S1/S2 Lungs: Positive: clear to auscultation Neuro: Positive: Grossly Intact Abdomen: Positive: Soft. Negative: Tender Skin: Positive: Clear. Negative: Rash, Wound Musculoskeletal: No Fluid Collection, No Pain, Normal Range of Motion Extremities: Absent: edema - Labs and Meds CBC 05/26/17 Range/Units 06:05 WBC 11.1 H (4.5-11.0) K/mm3 RBC 4.25 (3.65-5.03) M/mm3 Hgb 12.3 (11.8-15.2) gm/dl Hct 37.1 (35.5-45.6) % Plt Count 116 L (140-440) K/mm3 Comprehensive Metabolic Panel 05/26/17 Range/Units 06:05 Sodium 134 L (137-145) mmol/L Potassium 3.8 (3.6-5.0) mmol/L Chloride 94.1 L (98-107) mmol/L Carbon Dioxide 24 (22-30) mmol/L BUN 50 H (9-20) mg/dL Creatinine 3.5 H (0.8-1.5) mg/dL Glucose 278 H (75-100) mg/dL Calcium 7.5 L (8.4-10.2) mg/dL - Imaging and Cardiology EKG: report reviewed, image reviewed Echo: report reviewed
--- NOTE | 2017-05-26 19:11 | Progress Note ---
Assessment and Plan Assessment and plan: Sepsis. Continue IV antibiotics. Etiology secondary to UTI/Escherichia coli bacteremia. Escherichia coli bacteremia. ID following. Atrial fibrillation with RVR. Pt has converted to SR. D/cd amio gtt. Cont. amio 400mg BID and lopressor to 50mg PO BID for BP control. Cardiology recommended no systemic anticoagulation at this time in regards to AFib/ AFlutter in setting of gross hematuria. Can consider AC if/when okay per urology and once mental status improves - pt is at high risk for falls at this time. Complicated CA-UTI with right Hydronephrosis . Valle catheter changed. Urology following. CT of the abdomen showed gas forming infection in there urinary tract with moderate hydroureter in the left and mild hydroureter on the right. Ultrasound of the kidney showed moderate to severe right hydronephrosis with bladder calcification. 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 Etiology secondary to acute kidney injury superimposed CK-MB stage IV due to right hydronephrosis and UTI/sepsis. Baseline Cr around 2.87mg/dl in 05/2016. Patient is status post catheter placement and hemodialysis. Follow BMP. Patient could potentially have chronic kidney disease which has progressed to end-stage renal disease. Continue to follow renal indices following relief of obstruction. If no improvement, will place patient at outpatient dialysis clinic and consider AV fistula placement. We will have case management to start working on placement for now Toxic metabolic encephalopathy. Etiology likely secondary to uremic encephalopathy and sepsis. Continue to treat underlying causes. Abnormal cardiac enzymes BPH. Per urology Hypertension. Continue antihypertensive medications as needed. Moderate pulmonary hypertension. Consider pulmonary consultation Diabetes mellitus type II. Continue Accu-Cheks and slight scale insulin. Gross hematuria. As above. Patient with indwelling Valle catheter changed by Urologist 05/20/17 Discharge planning ; awaiting SNF placement, outpatient HD chair scheduling Plan of care reviewed with the patient his nurse and the case management History Interval history: Patient seen and examined medical records reviewed No new events reported by the nursing staff Patient is awaiting SNF placement as well as outpatient HD scheduling Patient feels better no new complaints Vital signs reviewed Hospitalist Physical - Constitutional Vitals: Temp Pulse Resp BP Pulse Ox 98.4 F 55 L 18 158/78 97 05/26/17 16:20 05/26/17 18:30 05/26/17 16:20 05/26/17 18:30 05/25/17 19:37 General appearance: Present: no acute distress, well-nourished - EENT Eyes: Present: PERRL, EOM intact - Neck Neck: Present: supple, normal ROM - Respiratory Respiratory effort: normal Respiratory: bilateral: diminished, rales, negative: rhonchi, wheezing - Cardiovascular Rhythm: regular Heart Sounds: Present: S1 & S2 - Extremities Extremities: no ischemia, No edema - Abdominal General gastrointestinal: soft, non-tender, non-distended, normal bowel sounds - Integumentary Integumentary: Present: clear, warm - Psychiatric Psychiatric: appropriate mood/affect, cooperative - Neurologic Neurologic: moves all extremities Results - Labs CBC & Chem 7: 05/26/17 06:05 05/26/17 06:05 Labs: Laboratory Last Values WBC 11.1 K/mm3 (4.5-11.0) H 05/26/17 06:05 RBC 4.25 M/mm3 (3.65-5.03) 05/26/17 06:05 Hgb 12.3 gm/dl (11.8-15.2) 05/26/17 06:05 Hct 37.1 % (35.5-45.6) 05/26/17 06:05 MCV 87 fl (84-94) 05/26/17 06:05 MCH 29 pg (28-32) 05/26/17 06:05 MCHC 33 % (32-34) 05/26/17 06:05 RDW 14.2 % (13.2-15.2) 05/26/17 06:05 Plt Count 116 K/mm3 (140-440) L 05/26/17 06:05 [place] % (Auto) Kennel Assistant 05/23/17 06:32 Add Manual Diff Complete 05/26/17 06:05 Total Counted 100 05/26/17 06:05 Seg Neuts % (Manual) 70.0 % (40.0-70.0) 05/26/17 06:05 Band Neutrophils % 5.0 % 05/26/17 06:05 Lymphocytes % (Manual) 17.0 % (13.4-35.0) 05/26/17 06:05 Reactive Lymphs % (Man) 0 % 05/26/17 06:05 Monocytes % (Manual) 6.0 % (0.0-7.3) 05/26/17 06:05 Eosinophils % (Manual) 1.0 % (0.0-4.3) 05/26/17 06:05 Basophils % (Manual) 0 % (0.0-1.8) 05/26/17 06:05 Metamyelocytes % 1.0 % 05/26/17 06:05 Myelocytes % 0 % 05/26/17 06:05 Promyelocytes % 0 % 05/26/17 06:05 Blast Cells % 0 % 05/26/17 06:05 Nucleated RBC % Not Reportable 05/26/17 06:05 Seg Neutrophils # Man 7.8 K/mm3 (1.8-7.7) H 05/26/17 06:05 Band Neutrophils # 0.6 K/mm3 05/26/17 06:05 Lymphocytes # (Manual) 1.9 K/mm3 (1.2-5.4) 05/26/17 06:05 Abs React Lymphs (Man) 0.0 K/mm3 05/26/17 06:05 Monocytes # (Manual) 0.7 K/mm3 (0.0-0.8) 05/26/17 06:05 Eosinophils # (Manual) 0.1 K/mm3 (0.0-0.4) 05/26/17 06:05 Basophils # (Manual) 0.0 K/mm3 (0.0-0.1) 05/26/17 06:05 Metamyelocytes # 0.1 K/mm3 05/26/17 06:05 Myelocytes # 0.0 K/mm3 05/26/17 06:05 Promyelocytes # 0.0 K/mm3 05/26/17 06:05 Blast Cells # 0.0 K/mm3 05/26/17 06:05 WBC Morphology Not Reportable 05/26/17 06:05 Hypersegmented Neuts Not Reportable 05/26/17 06:05 Hyposegmented Neuts Not Reportable 05/26/17 06:05 Hypogranular Neuts Not Reportable 05/26/17 06:05 Smudge Cells Not Reportable 05/26/17 06:05 Toxic Granulation Not Reportable 05/26/17 06:05 Toxic Vacuolation Not Reportable 05/26/17 06:05 Dohle Bodies Not Reportable 05/26/17 06:05 Pelger-Huet Anomaly Not Reportable 05/26/17 06:05 Romina Rods Not Reportable 05/26/17 06:05 Platelet Estimate Not Reportable 05/26/17 06:05 Clumped Platelets Not Reportable 05/26/17 06:05 Plt Clumps, EDTA Not Reportable 05/26/17 06:05 Large Platelets Not Reportable 05/26/17 06:05 Giant Platelets Not Reportable 05/26/17 06:05 Platelet Satelliting Not Reportable 05/26/17 06:05 Plt Morphology Comment Not Reportable 05/26/17 06:05 RBC Morphology Normal 05/26/17 06:05 Dimorphic RBCs Not Reportable 05/26/17 06:05 Polychromasia Not Reportable 05/26/17 06:05 Hypochromasia Not Reportable 05/26/17 06:05 Poikilocytosis Not Reportable 05/26/17 06:05 Anisocytosis Not Reportable 05/26/17 06:05 Microcytosis Not Reportable 05/26/17 06:05 Macrocytosis Not Reportable 05/26/17 06:05 Spherocytes Not Reportable 05/26/17 06:05 Pappenheimer Bodies Not Reportable 05/26/17 06:05 Sickle Cells Not Reportable 05/26/17 06:05 Target Cells Not Reportable 05/26/17 06:05 Tear Drop Cells Not Reportable 05/26/17 06:05 Ovalocytes Not Reportable 05/26/17 06:05 Helmet Cells Not Reportable 05/26/17 06:05 [place] Bodies Not Reportable 05/26/17 06:05 [place] Rings Not Reportable 05/26/17 06:05 Steve Cells Not Reportable 05/26/17 06:05 Bite Cells Not Reportable 05/26/17 06:05 Crenated Cell Not Reportable 05/26/17 06:05 Elliptocytes Not Reportable 05/26/17 06:05 Acanthocytes (Spur) Not Reportable 05/26/17 06:05 Rouleaux Not Reportable 05/26/17 06:05 Hemoglobin C Crystals Not Reportable 05/26/17 06:05 Schistocytes Not Reportable 05/26/17 06:05 Malaria parasites Not Reportable 05/26/17 06:05 Bob Bodies Not Reportable 05/26/17 06:05 Hem Pathologist Commnt No 05/26/17 06:05 PT 16.0 Sec. (12.2-14.9) H 05/21/17 06:27 INR 1.21 (0.87-1.13) H 05/21/17 06:27 Sodium 134 mmol/L (137-145) L 05/26/17 06:05 Potassium 3.8 mmol/L (3.6-5.0) 05/26/17 06:05 Chloride 94.1 mmol/L (98-107) L 05/26/17 06:05 Carbon Dioxide 24 mmol/L (22-30) 05/26/17 06:05 Anion Gap 20 mmol/L 05/26/17 06:05 BUN 50 mg/dL (9-20) H 05/26/17 06:05 Creatinine 3.5 mg/dL (0.8-1.5) H 05/26/17 06:05 Estimated GFR 20 ml/min 05/26/17 06:05 BUN/Creatinine Ratio 14 % 05/26/17 06:05 Glucose 278 mg/dL (75-100) H 05/26/17 06:05 POC Glucose 277 (70-105) H 05/26/17 11:12 Lactic Acid 1.70 mmol/L (0.7-2.0) 05/21/17 15:16 Calcium 7.5 mg/dL (8.4-10.2) L 05/26/17 06:05 Phosphorus 7.00 mg/dL (2.5-4.5) H 05/21/17 06:27 Magnesium 1.90 mg/dL (1.7-2.3) 05/22/17 05:03 Total Bilirubin 0.20 mg/dL (0.1-1.2) 05/23/17 06:32 AST 14 units/L (5-40) 05/23/17 06:32 ALT 11 units/L (7-56) 05/23/17 06:32 Alkaline Phosphatase 61 units/L (35-129) 05/23/17 06:32 Total Creatine Kinase 122 units/L (55-170) 05/21/17 06:27 CK-MB (CK-2) 4.4 ng/mL (0.0-4.0) H 05/21/17 06:27 CK-MB (CK-2) Rel Index 3.6 (0-4) 05/21/17 06:27 Troponin T 0.113 ng/mL (0.00-0.029) H* 05/21/17 06:27 NT-Pro-B Natriuret Pep 4670 pg/mL (0-900) H 05/19/17 17:24 Total Protein 6.1 g/dL (6.3-8.2) L 05/23/17 06:32 Albumin 1.9 g/dL (3.9-5) L 05/23/17 06:32 Albumin/Globulin Ratio 0.5 % 05/23/17 06:32 Triglycerides 160 mg/dL (2-149) H 05/19/17 17:24 Cholesterol 151 mg/dL (50-199) 05/19/17 17:24 LDL Cholesterol Direct 93 mg/dL (50-130) 05/19/17 17:24 HDL Cholesterol 26 mg/dL (40-59) L 05/19/17 17:24 Cholesterol/HDL Ratio 5.80 % 05/19/17 17:24 TSH 1.390 mlU/mL (0.270-4.200) 05/20/17 15:28 Free T4 0.95 ng/dL (0.76-1.46) 05/20/17 15:28 PTH Intact 370.6 pg/mL (15-65) H 05/21/17 06:27 Urine Color Red (Yellow) 05/19/17 20:12 Urine Turbidity Turbid (Clear) 05/19/17 20:12 Urine pH 8.0 (5.0-7.0) H 05/19/17 20:12 Ur Specific [employer] 1.018 (1.003-1.030) 05/19/17 20:12 Urine Protein 100 mg/dl mg/dL (Negative) 05/19/17 20:12 Urine Glucose (UA) Neg mg/dL (Negative) 05/19/17 20:12 Urine Ketones Neg mg/dL (Negative) 05/19/17 20:12 Urine Blood Lg (Negative) 05/19/17 20:12 Urine Nitrite Neg (Negative) 05/19/17 20:12 Urine Bilirubin Neg (Negative) 05/19/17 20:12 Urine Urobilinogen < 2.0 mg/dL (<2.0) 05/19/17 20:12 Ur Leukocyte Esterase Mod (Negative) 05/19/17 20:12 Urine WBC (Auto) > 182.0 /HPF (0.0-6.0) H 05/19/17 20:12 Urine RBC (Auto) > 182.0 /HPF (0.0-6.0) 05/19/17 20:12 Urine Mucus 3+ /HPF 05/19/17 20:12 Urine Creatinine < 4.2 mg/dL (0.1-20.0) 05/19/17 20:12 Urine Sodium 127 mmol/L 05/19/17 20:12 RENY Screen Negative (Negative) 05/20/17 05:52 Proteinase 3 (PR3) Ab <1.0 AI (<1.0) 05/20/17 05:52 Myeloperoxidase Ab <1.0 AI (<1.0) 05/20/17 05:52 Complement C3 113 mg/dL () 05/20/17 05:52 Complement C4 20 mg/dL () 05/20/17 05:52 Hepatitis A IgM Ab Non-reactive (NonReactive) 05/22/17 18:01 Hep Bs Antigen Non-reactive (Negative) 05/22/17 18:01 Hep B Core IgM Ab Non-reactive (NonReactive) 05/22/17 18:01 Hepatitis C Antibody Non-reactive (NonReactive) 05/22/17 18:01
[2017-05-26] MEDS ORDERED: NACL 0.9 (PRIMING MACHINE ONLY DIALYSIS) MC ONE (19:27)
[2017-05-26] MEDS: HEPARIN IV PRN (20:58)
[2017-05-26] MEDS: cefTRIAXone 1 GM in NACL 0.9% 20 ML IV SCH (21:52)
[2017-05-27 06:48] LABS: Calcium 7.2 mg/dL (8.4-10.2)
[2017-05-27] MEDS: HumaLOG SUB-Q SCH ×4 (07:59→22:22)
[2017-05-27] MEDS: LOPRESSOR PO SCH ×2 (09:38→22:20)
[2017-05-27] MEDS: CORDARONE PO SCH ×2 (09:39→22:20)
--- NOTE | 2017-05-27 10:42 | Discharge Summary ---
Providers - Providers Date of Admission: 05/19/17 22:15 Date of discharge: 05/27/17 Attending physician: TERESA GANDHI 05/19/17 18:39 Consult to Physician [CONS] Stat Consulting Provider: STACEY HOOPER Reason For Exam: acute renal failure Place consult to:: Dr. Hooper Notified:: yes 05/20/17 07:27 Consult to Physician [CONS] Routine Consulting Provider: JOSE RAFAEL DALE Reason For Exam: Hydronephrosis. Place consult to:: Dr. Dale Notified:: Bettie GARIBAY Time called:: 08:43 Comment:: made aware that consult is physician to physician.He will call ur 05/20/17 09:53 Consult to Cardiology [CONS] Routine Consulting Provider: MINAL COLINDRES Reason For Exam: SVT 05/21/17 10:19 Consult to Physician [CONS] Routine Consulting Provider: AQUILINO KYLE Reason For Exam: UTI, ACUTE RENAL FAILURE Place consult to:: RENAL Notified:: Y Time called:: 10:21 Comment:: CONSULT CALLED TO DR KYLE PER DR HART 05/21/17 18:24 Consult to Physician [CONS] Routine Consulting Provider: ONIEL BENÍTEZ Reason For Exam: sepsis Place consult to:: Nabila Hernández Notified:: PLEASE CALL MD IN AM Was contact made?: No 05/22/17 08:20 Consult to Interventional Radiology [CONS] Routine Consulting Provider: JOSE CHENG Reason For Exam: RAMOS on CKD, vascath placement Place consult to:: VASCULAR Notified:: Y Comment:: BEN DONOF CONSULT AT 0916 05/22/17 13:30 Consult to Physician [CONS] Routine Consulting Provider: ROXANE ALDRIDGE Reason For Exam: sepsis Place consult to:: althea Notified:: y Phone number called:: [phone] Was contact made?: Yes If yes, spoke with:: dr benítez Time called:: 13:36 Comment:: dr benítez wants to speak with dr stoner concerning consult 05/23/17 10:21 Consult to Case Management [CONS] Routine Services Needed at Discharge: Other Notified:: METALLURGICAL ENGINEERING TECHNICIAN Additional Physician Instructions: Arrange outpatient dialysis at [facility] 05/25/17 09:19 Consult to Case Management [CONS] Routine Services Needed at Discharge: Other Notified:: METALLURGICAL ENGINEERING TECHNICIAN Comment:: Please arrange placement at subacute rehabilitation Additional Physician Instructions: Please arrange placement at subacute rehabilitation 05/25/17 10:37 Physical Therapy Evaluation and Treat [CONS] Routine Comment: Reason For Exam: Eval and treat, may need subacute placement 05/25/17 10:41 Occupational Therapy Evaluate and Treat [CONS] Routine Comment: Reason For Exam: Eval/treat OT possible subacute placement Primary care physician: SIMULATION SOFTWARE ENGINEER Hospitalization Condition: Stable Disposition: DC-30 STILL A PATIENT Exam - Constitutional Vitals: Temp Pulse Resp BP Pulse Ox 98.3 F 64 18 143/65 99 05/27/17 07:31 05/27/17 10:00 05/27/17 10:00 05/27/17 09:38 05/27/17 10:00 Plan Follow up with: PRIMARY CAREMD [Primary Care Provider] - 3-5 Days
--- NOTE | 2017-05-27 12:04 | Progress Note ---
Assessment and Plan Assessment: Transient atrial fibrillation/atrial flutter with RVR --> SR Acute renal failure on CKD - initiated on HD Elevated troponin - ECG with no acute ischemic changes; pt denies chest pain; currently nonspecific Mod to severe right-sided hydronephrosis Generalized weakness Persistent confusion - suspect uremic encephalopathy per nephrology UTI / sepsis Metabolic acidosis Hematuria - H/H currently stable BPH Chronic indwelling Valle Hypokalemia Moderate pulm HTN - RVSP 53mmHg Plan: Currently stable cardiac status. Cont present cardiac regimen. Pt may discharge from cardiology standpoint. No systemic anticoagulation at this time given transient episode of AFib/ AFlutter, hematuria and high risk for falls. Recommend follow up in our office with Mary Duran NP, within 1-2 weeks of hospital discharge ([phone]). The patient has been seen in conjunction with Dr. Peñaloza who agrees with the assessment and plan of care. Subjective Date of service: 05/27/17 Principal diagnosis: sepsis, ARF, Afib Interval history: pt resting in bed, no current complaints. remains in SR. Objective Last Vital Signs Temp 98.3 F 05/27/17 07:31 Pulse 64 05/27/17 10:00 Resp 18 05/27/17 10:00 BP 143/65 05/27/17 09:38 Pulse Ox 99 05/27/17 10:00 - Physical Examination General: No Apparent Distress, Other (confused) HEENT: Positive: PERRL, Normocephaly, Mucus Membranes Moist Neck: Positive: neck supple, trachea midline Cardiac: Positive: Reg Rate and Rhythm, S1/S2 Lungs: Positive: Decreased Breath Sounds Neuro: Positive: Grossly Intact Abdomen: Positive: Soft. Negative: Tender Skin: Positive: Clear. Negative: Rash, Wound Musculoskeletal: No Fluid Collection, No Pain, Normal Range of Motion Extremities: Absent: edema - Labs and Meds Comprehensive Metabolic Panel 05/27/17 Range/Units 05:55 Sodium 135 L (137-145) mmol/L Potassium 3.8 (3.6-5.0) mmol/L Chloride 96.0 L (98-107) mmol/L Carbon Dioxide 21 L (22-30) mmol/L BUN 59 H (9-20) mg/dL Creatinine 3.9 H (0.8-1.5) mg/dL Glucose 209 H (75-100) mg/dL Calcium 7.2 L (8.4-10.2) mg/dL - Imaging and Cardiology EKG: report reviewed, image reviewed Echo: report reviewed - Telemetry EKG Rhythm: Sinus Rhythm
[2017-05-27] MEDS ORDERED: NACL 0.9% 500 ML 500 ML IV SCH (12:27)
[2017-05-27] MEDS: PNEUMOVAX 23 IM ONE ×2 (13:45→14:00)
--- NOTE | 2017-05-27 16:00 | Progress Note ---
Assessment and Plan Assessment and plan: --Gross hematuria: Patient has blood in the Valle catheter and urine bag, even after flushing, closely monitor H&H Hemodynamically stable at this point, if no improvement we will reconsult urology tomorrow --Sepsis; secondary to Escherichia coli UTI: Continue IV Rocephin per ID , and he is supportive care, oral Levaquin upon discharge, stop date 06/03/17,per ID --Atrial fibrillation with RVR. Pt has converted to SR. D/cd amio gtt. Cont. amio 400mg BID and lopressor to 50mg PO BID for BP control. No chronic anticoagulation at this point in view of gross hematuria recommended by Cardiology . Can start anticoagulation when hematuria improves . --Complicated CA-UTI with right Hydronephrosis . Valle catheter changed. Urology following. CT of the abdomen showed gas forming infection in there urinary tract with moderate hydroureter in the left and mild hydroureter on the right. Ultrasound of the kidney showed moderate to severe right hydronephrosis with bladder calcification. 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 --Abnormal cardiac enzymes; now stable --BPH; urology extensively evaluated the patient , continuous Valle catheterization and supportive care --Hypertension. Stable on medications --Moderate pulmonary hypertension. Stable --Diabetes mellitus type II. Accu-Cheks and slight scale insulin. --DVT prophylaxis; SCDs, a pharmacologic anticoagulation in view of gross hematuria --Full CODE STATUS Closely monitor, if hematuria improves and if patient is stable May be discharged to SNF tomorrow Plan of care reviewed with the patient, his nurse and the case management History Interval history: Patient seen and examined medical records reviewed Patient feels slightly better, has piotr blood in the Valle catheter and urine bag Reports that patient pulled out the Valle last night, probably traumatic hematuria Nurse flushed and irrigated the bladder with mild improvement He should really wanted to discharge the patient to SNF However in view of hematuria, hold the discharge, closely monitor Consult urology if no improvement Patient has no new complaints Vital signs reviewed stable Hospitalist Physical - Constitutional Vitals: Temp Pulse Resp BP Pulse Ox 97.6 F 60 20 130/71 99 05/27/17 12:03 05/27/17 12:03 05/27/17 12:03 05/27/17 12:03 05/27/17 12:03 General appearance: Present: no acute distress, well-nourished - EENT Eyes: Present: PERRL, EOM intact - Neck Neck: Present: supple, normal ROM - Respiratory Respiratory effort: normal Respiratory: bilateral: diminished, negative: rales, rhonchi, wheezing - Cardiovascular Rhythm: regular Heart Sounds: Present: S1 & S2 - Extremities Extremities: no ischemia, No edema - Abdominal General gastrointestinal: soft, non-tender, non-distended, normal bowel sounds - Integumentary Integumentary: Present: clear, warm - Psychiatric Psychiatric: appropriate mood/affect, cooperative - Neurologic Neurologic: moves all extremities - Additional findings Additional findings: Hematuria with blood in the Valle catheter and urine bag. Valle in place Results - Labs CBC & Chem 7: 05/26/17 06:05 05/27/17 05:55 Labs: Laboratory Last Values WBC 11.1 K/mm3 (4.5-11.0) H 05/26/17 06:05 RBC 4.25 M/mm3 (3.65-5.03) 05/26/17 06:05 Hgb 12.3 gm/dl (11.8-15.2) 05/26/17 06:05 Hct 37.1 % (35.5-45.6) 05/26/17 06:05 MCV 87 fl (84-94) 05/26/17 06:05 MCH 29 pg (28-32) 05/26/17 06:05 MCHC 33 % (32-34) 05/26/17 06:05 RDW 14.2 % (13.2-15.2) 05/26/17 06:05 Plt Count 116 K/mm3 (140-440) L 05/26/17 06:05 Door % (Auto) Railcar Mechanic 05/23/17 06:32 Add Manual Diff Complete 05/26/17 06:05 Total Counted 100 05/26/17 06:05 Seg Neuts % (Manual) 70.0 % (40.0-70.0) 05/26/17 06:05 Band Neutrophils % 5.0 % 05/26/17 06:05 Lymphocytes % (Manual) 17.0 % (13.4-35.0) 05/26/17 06:05 Reactive Lymphs % (Man) 0 % 05/26/17 06:05 Monocytes % (Manual) 6.0 % (0.0-7.3) 05/26/17 06:05 Eosinophils % (Manual) 1.0 % (0.0-4.3) 05/26/17 06:05 Basophils % (Manual) 0 % (0.0-1.8) 05/26/17 06:05 Metamyelocytes % 1.0 % 05/26/17 06:05 Myelocytes % 0 % 05/26/17 06:05 Promyelocytes % 0 % 05/26/17 06:05 Blast Cells % 0 % 05/26/17 06:05 Nucleated RBC % Not Reportable 05/26/17 06:05 Seg Neutrophils # Man 7.8 K/mm3 (1.8-7.7) H 05/26/17 06:05 Band Neutrophils # 0.6 K/mm3 05/26/17 06:05 Lymphocytes # (Manual) 1.9 K/mm3 (1.2-5.4) 05/26/17 06:05 Abs React Lymphs (Man) 0.0 K/mm3 05/26/17 06:05 Monocytes # (Manual) 0.7 K/mm3 (0.0-0.8) 05/26/17 06:05 Eosinophils # (Manual) 0.1 K/mm3 (0.0-0.4) 05/26/17 06:05 Basophils # (Manual) 0.0 K/mm3 (0.0-0.1) 05/26/17 06:05 Metamyelocytes # 0.1 K/mm3 05/26/17 06:05 Myelocytes # 0.0 K/mm3 05/26/17 06:05 Promyelocytes # 0.0 K/mm3 05/26/17 06:05 Blast Cells # 0.0 K/mm3 05/26/17 06:05 WBC Morphology Not Reportable 05/26/17 06:05 Hypersegmented Neuts Not Reportable 05/26/17 06:05 Hyposegmented Neuts Not Reportable 05/26/17 06:05 Hypogranular Neuts Not Reportable 05/26/17 06:05 Smudge Cells Not Reportable 05/26/17 06:05 Toxic Granulation Not Reportable 05/26/17 06:05 Toxic Vacuolation Not Reportable 05/26/17 06:05 Dohle Bodies Not Reportable 05/26/17 06:05 Pelger-Huet Anomaly Not Reportable 05/26/17 06:05 Romina Rods Not Reportable 05/26/17 06:05 Platelet Estimate Not Reportable 05/26/17 06:05 Clumped Platelets Not Reportable 05/26/17 06:05 Plt Clumps, EDTA Not Reportable 05/26/17 06:05 Large Platelets Not Reportable 05/26/17 06:05 Giant Platelets Not Reportable 05/26/17 06:05 Platelet Satelliting Not Reportable 05/26/17 06:05 Plt Morphology Comment Not Reportable 05/26/17 06:05 RBC Morphology Normal 05/26/17 06:05 Dimorphic RBCs Not Reportable 05/26/17 06:05 Polychromasia Not Reportable 05/26/17 06:05 Hypochromasia Not Reportable 05/26/17 06:05 Poikilocytosis Not Reportable 05/26/17 06:05 Anisocytosis Not Reportable 05/26/17 06:05 Microcytosis Not Reportable 05/26/17 06:05 Macrocytosis Not Reportable 05/26/17 06:05 Spherocytes Not Reportable 05/26/17 06:05 Pappenheimer Bodies Not Reportable 05/26/17 06:05 Sickle Cells Not Reportable 05/26/17 06:05 Target Cells Not Reportable 05/26/17 06:05 Tear Drop Cells Not Reportable 05/26/17 06:05 Ovalocytes Not Reportable 05/26/17 06:05 Helmet Cells Not Reportable 05/26/17 06:05 [place] Bodies Not Reportable 05/26/17 06:05 Bowen Rings Not Reportable 05/26/17 06:05 Friedens Cells Not Reportable 05/26/17 06:05 Bite Cells Not Reportable 05/26/17 06:05 Crenated Cell Not Reportable 05/26/17 06:05 Elliptocytes Not Reportable 05/26/17 06:05 Acanthocytes (Spur) Not Reportable 05/26/17 06:05 Rouleaux Not Reportable 05/26/17 06:05 Hemoglobin C Crystals Not Reportable 05/26/17 06:05 Schistocytes Not Reportable 05/26/17 06:05 Malaria parasites Not Reportable 05/26/17 06:05 Bob Bodies Not Reportable 05/26/17 06:05 Hem Pathologist Commnt No 05/26/17 06:05 PT 16.0 Sec. (12.2-14.9) H 05/21/17 06:27 INR 1.21 (0.87-1.13) H 05/21/17 06:27 Sodium 135 mmol/L (137-145) L 05/27/17 05:55 Potassium 3.8 mmol/L (3.6-5.0) 05/27/17 05:55 Chloride 96.0 mmol/L (98-107) L 05/27/17 05:55 Carbon Dioxide 21 mmol/L (22-30) L 05/27/17 05:55 Anion Gap 22 mmol/L 05/27/17 05:55 BUN 59 mg/dL (9-20) H 05/27/17 05:55 Creatinine 3.9 mg/dL (0.8-1.5) H 05/27/17 05:55 Estimated GFR 18 ml/min 05/27/17 05:55 BUN/Creatinine Ratio 15 % 05/27/17 05:55 Glucose 209 mg/dL (75-100) H 05/27/17 05:55 POC Glucose 280 (70-105) H 05/27/17 12:14 Lactic Acid 1.70 mmol/L (0.7-2.0) 05/21/17 15:16 Calcium 7.2 mg/dL (8.4-10.2) L 05/27/17 05:55 Phosphorus 7.00 mg/dL (2.5-4.5) H 05/21/17 06:27 Magnesium 1.90 mg/dL (1.7-2.3) 05/22/17 05:03 Total Bilirubin 0.20 mg/dL (0.1-1.2) 05/23/17 06:32 AST 14 units/L (5-40) 05/23/17 06:32 ALT 11 units/L (7-56) 05/23/17 06:32 Alkaline Phosphatase 61 units/L (35-129) 05/23/17 06:32 Total Creatine Kinase 122 units/L (55-170) 05/21/17 06:27 CK-MB (CK-2) 4.4 ng/mL (0.0-4.0) H 05/21/17 06:27 CK-MB (CK-2) Rel Index 3.6 (0-4) 05/21/17 06:27 Troponin T 0.113 ng/mL (0.00-0.029) H* 05/21/17 06:27 NT-Pro-B Natriuret Pep 4670 pg/mL (0-900) H 05/19/17 17:24 Total Protein 6.1 g/dL (6.3-8.2) L 05/23/17 06:32 Albumin 1.9 g/dL (3.9-5) L 05/23/17 06:32 Albumin/Globulin Ratio 0.5 % 05/23/17 06:32 Triglycerides 160 mg/dL (2-149) H 05/19/17 17:24 Cholesterol 151 mg/dL (50-199) 05/19/17 17:24 LDL Cholesterol Direct 93 mg/dL (50-130) 05/19/17 17:24 HDL Cholesterol 26 mg/dL (40-59) L 05/19/17 17:24 Cholesterol/HDL Ratio 5.80 % 05/19/17 17:24 TSH 1.390 mlU/mL (0.270-4.200) 05/20/17 15:28 Free T4 0.95 ng/dL (0.76-1.46) 05/20/17 15:28 PTH Intact 370.6 pg/mL (15-65) H 05/21/17 06:27 Urine Color Red (Yellow) 05/19/17 20:12 Urine Turbidity Turbid (Clear) 05/19/17 20:12 Urine pH 8.0 (5.0-7.0) H 05/19/17 20:12 Ur Specific [place] 1.018 (1.003-1.030) 05/19/17 20:12 Urine Protein 100 mg/dl mg/dL (Negative) 05/19/17 20:12 Urine Glucose (UA) Neg mg/dL (Negative) 05/19/17 20:12 Urine Ketones Neg mg/dL (Negative) 05/19/17 20:12 Urine Blood Lg (Negative) 05/19/17 20:12 Urine Nitrite Neg (Negative) 05/19/17 20:12 Urine Bilirubin Neg (Negative) 05/19/17 20:12 Urine Urobilinogen < 2.0 mg/dL (<2.0) 05/19/17 20:12 Ur Leukocyte Esterase Mod (Negative) 05/19/17 20:12 Urine WBC (Auto) > 182.0 /HPF (0.0-6.0) H 05/19/17 20:12 Urine RBC (Auto) > 182.0 /HPF (0.0-6.0) 05/19/17 20:12 Urine Mucus 3+ /HPF 05/19/17 20:12 Urine Creatinine < 4.2 mg/dL (0.1-20.0) 05/19/17 20:12 Urine Sodium 127 mmol/L 05/19/17 20:12 RENY Screen Negative (Negative) 05/20/17 05:52 Proteinase 3 (PR3) Ab <1.0 AI (<1.0) 05/20/17 05:52 Myeloperoxidase Ab <1.0 AI (<1.0) 05/20/17 05:52 Complement C3 113 mg/dL () 05/20/17 05:52 Complement C4 20 mg/dL () 05/20/17 05:52 Hepatitis A IgM Ab Non-reactive (NonReactive) 05/22/17 18:01 Hep Bs Antigen Non-reactive (Negative) 05/22/17 18:01 Hep B Core IgM Ab Non-reactive (NonReactive) 05/22/17 18:01 Hepatitis C Antibody Non-reactive (NonReactive) 05/22/17 18:01
--- NOTE | 2017-05-27 16:30 | Progress Note ---
Assessment and Plan - Patient Problems (1) Acute renal failure superimposed on chronic kidney disease Current Visit: Yes Status: Acute Plan to address problem: Patient may well have chronic kidney disease which has progressed to end-stage renal disease. Follow renal indices following relief of obstruction. So far, no significant improvement other than expected with dialysis. Outpatient dialysis has been arranged at [facility]. Patient will get AV fistula placement as an Out Patient when infection issues resolved. Case management working on placement at subacute rehabilitation. (2) Obstructive uropathy Current Visit: Yes Status: Acute Plan to address problem: Status post Valle catheter changed by urology. Urology follow-up of hematuria (3) Sepsis due to urinary tract infection Current Visit: Yes Status: Acute Plan to address problem: CT suggests gas-forming urinary tract infection. Continue antibiotics and follow up (4) Metabolic acidosis Current Visit: Yes Status: Acute Plan to address problem: Improving with dialysis. (5) Hypokalemia Current Visit: Yes Status: Acute Plan to address problem: Replete (6) Metabolic encephalopathy Current Visit: Yes Status: Acute Plan to address problem: Improving with dialysis. slot operations manager to arrange placement at subacute rehabilitation (7) Type 2 diabetes mellitus with diabetic nephropathy Current Visit: Yes Status: Acute Plan to address problem: Blood sugar management by primary attending (8) Hypertensive chronic kidney disease with stage 5 chronic kidney disease or end stage renal disease Current Visit: Yes Status: Acute Plan to address problem: Follow blood pressure following fluid removal on dialysis Subjective Date of service: 05/27/17 Principal diagnosis: sepsis, ARF, Afib Interval history: Patient seen lying in bed. He complains of back pain. He denies any chest pain , shortness of nausea or vomiting. Objective - Exam Narrative Exam: Elderly male lying in bed in no acute distress HEENT: NCAT, pink oral mucous membrane Neck: Supple, no venous distention CVS: S1S2 RRR with no murmur, rub or gallop Chest: Clear to auscultation Abdomen: Protuberant, soft, nontender, no organomegaly, bowel sounds are present Extremities: 1-2+ edema, Valle draining bloody urine Neuro: Awake, alert no focal deficits - Vital Signs Vital signs: Vital Signs - 12hr 05/27/17 05/27/17 05/27/17 04:45 04:47 07:31 Temperature 97.3 F L 98.3 F Pulse Rate 61 61 64 Pulse Rate [ From Monitor] Respiratory 18 Rate Blood Pressure 163/75 143/65 O2 Sat by Pulse 98 99 Oximetry 05/27/17 05/27/17 05/27/17 09:38 10:00 12:03 Temperature 97.6 F Pulse Rate 64 62 60 Pulse Rate [ 64 From Monitor] Respiratory 18 20 Rate Blood Pressure 143/65 130/71 O2 Sat by Pulse 99 99 Oximetry 05/27/17 16:03 Temperature 97.5 F L Pulse Rate 61 Pulse Rate [ From Monitor] Respiratory 20 Rate Blood Pressure 134/68 O2 Sat by Pulse 98 Oximetry - Lab 05/26/17 06:05 05/27/17 05:55 Most recent lab results Calcium 7.2 mg/dL (8.4-10.2) L 05/27/17 05:55 Phosphorus 7.00 mg/dL (2.5-4.5) H 05/21/17 06:27 Magnesium 1.90 mg/dL (1.7-2.3) 05/22/17 05:03 Urine Creatinine < 4.2 mg/dL (0.1-20.0) 05/19/17 20:12 Urine Sodium 127 mmol/L 05/19/17 20:12
[2017-05-27] MEDS: cefTRIAXone 1 GM in NACL 0.9% 20 ML IV SCH (22:19)
[2017-05-28 06:13] LABS: Hematocrit 32.6 % (35.5-45.6); Hemoglobin 10.7 gm/dl (11.8-15.2); Mean Corpuscular HGB Conc 33 % (32-34); Mean Corpuscular Hemoglobin 29 pg (28-32); Mean Corpuscular Volume 88 fl (84-94); Platelet Count 142 K/mm3 (140-440); Red Blood Count 3.72 M/mm3 (3.65-5.03); Red Cell Distribution Width 13.9 % (13.2-15.2)
[2017-05-28 06:25] LABS: Calcium 7.5 mg/dL (8.4-10.2)
[2017-05-28 08:10] LABS: Band Neutrophils # (Manual) 1.1 K/mm3; Basophils % (Manual) 0 % (0.0-1.8); Total Cells Counted 100
[2017-05-28 08:11] LABS: Anisocytosis 1+
[2017-05-28] MEDS: HumaLOG SUB-Q SCH ×4 (08:15→22:44)
[2017-05-28] MEDS: CORDARONE PO SCH ×2 (09:31→22:42)
[2017-05-28] MEDS: LOPRESSOR PO SCH ×2 (09:31→22:42)
[2017-05-28] MEDS ORDERED: NACL 0.9 (PRIMING MACHINE ONLY DIALYSIS) MC ONE ×2 (09:52→15:44)
[2017-05-28] MEDS ORDERED: NACL 0.9% 100 ML IV PRN (17:03)
--- NOTE | 2017-05-28 18:01 | Progress Note ---
Assessment and Plan - Patient Problems (1) Acute renal failure superimposed on chronic kidney disease Current Visit: Yes Status: Acute Plan to address problem: possible progression of CKD to end-stage renal disease. Follow renal indices following relief of obstruction. So far no significant recovery of renal function seen. Outpatient dialysis has been arranged at [facility]. Patient will get AV fistula placement as an Out Patient when infection issues resolved. Case management working on placement at subacute rehabilitation. (2) Obstructive uropathy Current Visit: Yes Status: Acute Plan to address problem: Status post Valle catheter changed by urology. Urology follow-up of hematuria (3) Sepsis due to urinary tract infection Current Visit: Yes Status: Acute Plan to address problem: CT suggests gas-forming urinary tract infection. Continue antibiotics and follow up (4) Type 2 diabetes mellitus with diabetic nephropathy Current Visit: Yes Status: Acute Plan to address problem: Blood sugar management by primary attending (5) Hypertensive chronic kidney disease with stage 5 chronic kidney disease or end stage renal disease Current Visit: Yes Status: Acute Plan to address problem: monitor BP on current meds (6) Metabolic acidosis Current Visit: Yes Status: Acute Plan to address problem: Improving with dialysis. (7) Metabolic encephalopathy Current Visit: Yes Status: Acute Plan to address problem: Improving with dialysis. manager msw to arrange placement at subacute rehabilitation (8) Hypokalemia Current Visit: Yes Status: Acute Plan to address problem: supplement with K May Subjective Date of service: 05/28/17 Principal diagnosis: sepsis, ARF, Afib Interval history: Pt seen and examined during HD, pt had brief episode of change of mental status , BP was low at 90/60s mmHg, UF held and 250ml bolus given with improved BP and mental status to baseline. No acute CP, SOB, palpitations, fever, chills reported. Objective - Vital Signs Vital signs: Vital Signs - 12hr 05/28/17 05/28/17 07:31 09:31 Temperature 97.4 F L Pulse Rate 62 61 Respiratory 20 Rate Blood Pressure 133/66 133/66 O2 Sat by Pulse 99 Oximetry - General Appearance General appearance: well-developed, well-nourished, appears stated age EENT: ATNC, PERRL, mucous membranes moist Neck: no JVD Respiratory: Present: Decreased Breath Sounds Cardiology: regular, S1S2 Gastrointestinal: normoactive bowel sounds, obese Integumentary: no rash, other (trace edema ) Neurologic: no focal deficit, alert and oriented x3, strength 5/5, CN 3-12 intact Psychiatric: mood/affect appropriate, cooperative - Lab 05/28/17 05:34 05/28/17 05:34 Most recent lab results Calcium 7.5 mg/dL (8.4-10.2) L 05/28/17 05:34 Phosphorus 7.00 mg/dL (2.5-4.5) H 05/21/17 06:27 Magnesium 1.90 mg/dL (1.7-2.3) 05/22/17 05:03 Urine Creatinine < 4.2 mg/dL (0.1-20.0) 05/19/17 20:12 Urine Sodium 127 mmol/L 05/19/17 20:12
--- NOTE | 2017-05-28 18:55 | Progress Note ---
Assessment and Plan Assessment and plan: --Gross hematuria: Patient continues to have hematuria, Dr. Dale ,Urology was reconsulted , advised CT abdomen and pelvis without contrast Hemodynamically stable at this point, HB 10.7 -- urinary retention , had 700 mL of bloody urine after readjusting the Valle catheter --Sepsis; secondary to Escherichia coli UTI: Continue IV Rocephin per ID , and he is supportive care, oral Levaquin upon discharge, stop date 06/03/17,per ID --Atrial fibrillation with RVR: Now rate controlled s/p amio drip, Cont. amio 400mg BID and lopressor to 50mg PO BID Not a candidate for chronic anticoagulation at this point due to gross hematuria per Cardiology . Can start anticoagulation when hematuria improves . --Complicated -UTI with right Hydronephrosis . Valle catheter changed. Urology following. CT of the abdomen showed gas forming infection in there urinary tract with moderate hydroureter in the left and mild hydroureter on the right. Ultrasound of the kidney showed moderate to severe right hydronephrosis with bladder calcification. 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 --Abnormal cardiac enzymes; now stable --BPH; urology extensively evaluated the patient , continuous Valle catheterization and supportive care --Hypertension. Stable on medications --Moderate pulmonary hypertension. Stable --Diabetes mellitus type II. Accu-Cheks and slight scale insulin. --DVT prophylaxis; SCDs, a pharmacologic anticoagulation in view of gross hematuria --Full CODE STATUS Follow CT abdomen and pelvis and urology evaluation tomorrow If patient is stable and can be discharged to SNF tomorrow Plan of care reviewed with the patient, his nurse and the case management History Interval history: Patient seen and examined medical records reviewed No new events reported by the nursing staff Patient continues to have flank blood in the Valle and urine bag with very little urine Patient alert and awake responds to simple questions Vital signs reviewed Hospitalist Physical - Constitutional Vitals: Temp Pulse Resp BP Pulse Ox 97.4 F L 55 L 18 123/95 100 05/28/17 16:50 05/28/17 18:15 05/28/17 16:50 05/28/17 18:15 05/28/17 16:50 General appearance: Present: no acute distress, well-nourished - EENT Eyes: Present: PERRL, EOM intact - Neck Neck: Present: supple, normal ROM - Respiratory Respiratory effort: normal Respiratory: bilateral: diminished, negative: rales, rhonchi, wheezing - Cardiovascular Rhythm: regular Heart Sounds: Present: S1 & S2 - Extremities Extremities: no ischemia Extremity abnormal: edema - Abdominal General gastrointestinal: soft, non-tender, non-distended, normal bowel sounds, other (distended bladder) - Integumentary Integumentary: Present: clear, warm - Psychiatric Psychiatric: appropriate mood/affect, cooperative - Neurologic Neurologic: moves all extremities Results - Labs CBC & Chem 7: 05/28/17 05:34 05/28/17 05:34 Labs: Laboratory Last Values WBC 12.3 K/mm3 (4.5-11.0) H 05/28/17 05:34 RBC 3.72 M/mm3 (3.65-5.03) 05/28/17 05:34 Hgb 10.7 gm/dl (11.8-15.2) L 05/28/17 05:34 Hct 32.6 % (35.5-45.6) L 05/28/17 05:34 MCV 88 fl (84-94) 05/28/17 05:34 MCH 29 pg (28-32) 05/28/17 05:34 MCHC 33 % (32-34) 05/28/17 05:34 RDW 13.9 % (13.2-15.2) 05/28/17 05:34 Plt Count 142 K/mm3 (140-440) 05/28/17 05:34 [place] % (Auto) [place] 05/23/17 06:32 Add Manual Diff Complete 05/28/17 05:34 Total Counted 100 05/28/17 05:34 Seg Neuts % (Manual) 67.0 % (40.0-70.0) 05/28/17 05:34 Band Neutrophils % 9.0 % 05/28/17 05:34 Lymphocytes % (Manual) 12.0 % (13.4-35.0) L 05/28/17 05:34 Reactive Lymphs % (Man) 0 % 05/28/17 05:34 Monocytes % (Manual) 9.0 % (0.0-7.3) H 05/28/17 05:34 Eosinophils % (Manual) 3.0 % (0.0-4.3) 05/28/17 05:34 Basophils % (Manual) 0 % (0.0-1.8) 05/28/17 05:34 Metamyelocytes % 0 % 05/28/17 05:34 Myelocytes % 0 % 05/28/17 05:34 Promyelocytes % 0 % 05/28/17 05:34 Blast Cells % 0 % 05/28/17 05:34 Nucleated RBC % 1.0 % (0.0-0.9) H 05/28/17 05:34 Seg Neutrophils # Man 8.2 K/mm3 (1.8-7.7) H 05/28/17 05:34 Band Neutrophils # 1.1 K/mm3 05/28/17 05:34 Lymphocytes # (Manual) 1.5 K/mm3 (1.2-5.4) 05/28/17 05:34 Abs React Lymphs (Man) 0.0 K/mm3 05/28/17 05:34 Monocytes # (Manual) 1.1 K/mm3 (0.0-0.8) H 05/28/17 05:34 Eosinophils # (Manual) 0.4 K/mm3 (0.0-0.4) 05/28/17 05:34 Basophils # (Manual) 0.0 K/mm3 (0.0-0.1) 05/28/17 05:34 Metamyelocytes # 0.0 K/mm3 05/28/17 05:34 Myelocytes # 0.0 K/mm3 05/28/17 05:34 Promyelocytes # 0.0 K/mm3 05/28/17 05:34 Blast Cells # 0.0 K/mm3 05/28/17 05:34 WBC Morphology Not Reportable 05/28/17 05:34 Hypersegmented Neuts Not Reportable 05/28/17 05:34 Hyposegmented Neuts Not Reportable 05/28/17 05:34 Hypogranular Neuts Not Reportable 05/28/17 05:34 Smudge Cells Not Reportable 05/28/17 05:34 Toxic Granulation Not Reportable 05/28/17 05:34 Toxic Vacuolation Not Reportable 05/28/17 05:34 Dohle Bodies Not Reportable 05/28/17 05:34 Pelger-Huet Anomaly Not Reportable 05/28/17 05:34 Romina Rods Not Reportable 05/28/17 05:34 Platelet Estimate Appears normal 05/28/17 05:34 Clumped Platelets Not Reportable 05/28/17 05:34 Plt Clumps, EDTA Not Reportable 05/28/17 05:34 Large Platelets Not Reportable 05/28/17 05:34 Giant Platelets Not Reportable 05/28/17 05:34 Platelet Satelliting Not Reportable 05/28/17 05:34 Plt Morphology Comment Not Reportable 05/28/17 05:34 RBC Morphology Not Reportable 05/28/17 05:34 Dimorphic RBCs Not Reportable 05/28/17 05:34 Polychromasia Not Reportable 05/28/17 05:34 Hypochromasia Not Reportable 05/28/17 05:34 Poikilocytosis Not Reportable 05/28/17 05:34 Anisocytosis 1+ 05/28/17 05:34 Microcytosis Not Reportable 05/28/17 05:34 Macrocytosis Not Reportable 05/28/17 05:34 Spherocytes Not Reportable 05/28/17 05:34 Pappenheimer Bodies Not Reportable 05/28/17 05:34 Sickle Cells Not Reportable 05/28/17 05:34 Target Cells Not Reportable 05/28/17 05:34 Tear Drop Cells Not Reportable 05/28/17 05:34 Ovalocytes Not Reportable 05/28/17 05:34 Helmet Cells Not Reportable 05/28/17 05:34 Ger[place] Bodies Not Reportable 05/28/17 05:34 Hood Rings Not Reportable 05/28/17 05:34 Savage Cells Not Reportable 05/28/17 05:34 Bite Cells Not Reportable 05/28/17 05:34 Crenated Cell Not Reportable 05/28/17 05:34 Elliptocytes Not Reportable 05/28/17 05:34 Acanthocytes (Spur) Not Reportable 05/28/17 05:34 Rouleaux Not Reportable 05/28/17 05:34 Hemoglobin C Crystals Not Reportable 05/28/17 05:34 Schistocytes Not Reportable 05/28/17 05:34 Malaria parasites Not Reportable 05/28/17 05:34 Bob Bodies Not Reportable 05/28/17 05:34 Hem Pathologist Commnt No 05/28/17 05:34 PT 16.0 Sec. (12.2-14.9) H 05/21/17 06:27 INR 1.21 (0.87-1.13) H 05/21/17 06:27 Sodium 134 mmol/L (137-145) L 05/28/17 05:34 Potassium 3.5 mmol/L (3.6-5.0) L 05/28/17 05:34 Chloride 92.6 mmol/L (98-107) L 05/28/17 05:34 Carbon Dioxide 22 mmol/L (22-30) 05/28/17 05:34 Anion Gap 23 mmol/L 05/28/17 05:34 BUN 72 mg/dL (9-20) H 05/28/17 05:34 Creatinine 4.6 mg/dL (0.8-1.5) H 05/28/17 05:34 Estimated GFR 15 ml/min 05/28/17 05:34 BUN/Creatinine Ratio 16 % 05/28/17 05:34 Glucose 217 mg/dL (75-100) H 05/28/17 05:34 POC Glucose 214 (70-105) H 05/28/17 05:26 Hemoglobin A1c 11.2 % (4-6) H 05/28/17 05:34 Lactic Acid 1.70 mmol/L (0.7-2.0) 05/21/17 15:16 Calcium 7.5 mg/dL (8.4-10.2) L 05/28/17 05:34 Phosphorus 7.00 mg/dL (2.5-4.5) H 05/21/17 06:27 Magnesium 1.90 mg/dL (1.7-2.3) 05/22/17 05:03 Total Bilirubin 0.20 mg/dL (0.1-1.2) 05/23/17 06:32 AST 14 units/L (5-40) 05/23/17 06:32 ALT 11 units/L (7-56) 05/23/17 06:32 Alkaline Phosphatase 61 units/L (35-129) 05/23/17 06:32 Total Creatine Kinase 122 units/L (55-170) 05/21/17 06:27 CK-MB (CK-2) 4.4 ng/mL (0.0-4.0) H 05/21/17 06:27 CK-MB (CK-2) Rel Index 3.6 (0-4) 05/21/17 06:27 Troponin T 0.113 ng/mL (0.00-0.029) H* 05/21/17 06:27 NT-Pro-B Natriuret Pep 4670 pg/mL (0-900) H 05/19/17 17:24 Total Protein 6.1 g/dL (6.3-8.2) L 05/23/17 06:32 Albumin 1.9 g/dL (3.9-5) L 05/23/17 06:32 Albumin/Globulin Ratio 0.5 % 05/23/17 06:32 Triglycerides 160 mg/dL (2-149) H 05/19/17 17:24 Cholesterol 151 mg/dL (50-199) 05/19/17 17:24 LDL Cholesterol Direct 93 mg/dL (50-130) 05/19/17 17:24 HDL Cholesterol 26 mg/dL (40-59) L 05/19/17 17:24 Cholesterol/HDL Ratio 5.80 % 05/19/17 17:24 TSH 1.390 mlU/mL (0.270-4.200) 05/20/17 15:28 Free T4 0.95 ng/dL (0.76-1.46) 05/20/17 15:28 PTH Intact 370.6 pg/mL (15-65) H 05/21/17 06:27 Urine Color Red (Yellow) 05/19/17 20:12 Urine Turbidity Turbid (Clear) 05/19/17 20:12 Urine pH 8.0 (5.0-7.0) H 05/19/17 20:12 Ur Specific [place] 1.018 (1.003-1.030) 05/19/17 20:12 Urine Protein 100 mg/dl mg/dL (Negative) 05/19/17 20:12 Urine Glucose (UA) Neg mg/dL (Negative) 05/19/17 20:12 Urine Ketones Neg mg/dL (Negative) 05/19/17 20:12 Urine Blood Lg (Negative) 05/19/17 20:12 Urine Nitrite Neg (Negative) 05/19/17 20:12 Urine Bilirubin Neg (Negative) 05/19/17 20:12 Urine Urobilinogen < 2.0 mg/dL (<2.0) 05/19/17 20:12 Ur Leukocyte Esterase Mod (Negative) 05/19/17 20:12 Urine WBC (Auto) > 182.0 /HPF (0.0-6.0) H 05/19/17 20:12 Urine RBC (Auto) > 182.0 /HPF (0.0-6.0) 05/19/17 20:12 Urine Mucus 3+ /HPF 05/19/17 20:12 Urine Creatinine < 4.2 mg/dL (0.1-20.0) 05/19/17 20:12 Urine Sodium 127 mmol/L 05/19/17 20:12 RENY Screen Negative (Negative) 05/20/17 05:52 Proteinase 3 (PR3) Ab <1.0 AI (<1.0) 05/20/17 05:52 Myeloperoxidase Ab <1.0 AI (<1.0) 05/20/17 05:52 Complement C3 113 mg/dL () 05/20/17 05:52 Complement C4 20 mg/dL () 05/20/17 05:52 Hepatitis A IgM Ab Non-reactive (NonReactive) 05/22/17 18:01 Hep Bs Antigen Non-reactive (Negative) 05/22/17 18:01 Hep B Core IgM Ab Non-reactive (NonReactive) 05/22/17 18:01 Hepatitis C Antibody Non-reactive (NonReactive) 05/22/17 18:01
--- NOTE | 2017-05-28 19:11 | Event Note ---
Date: 05/28/17 Responded to code met from dialysis unit . Dialysis was started in dialysis unit, patient had a brief episode of unresponsiveness and hypotension Improved after bolus of fluids, the time of my evaluation patient feels better, opening eyes upon calling his name Vital signs reviewed, stable, advised to hold antihypertensives, closely monitor Nephrology has evaluated the patient
[2017-05-28] MEDS: HEPARIN IV PRN (20:34)
[2017-05-28] MEDS: cefTRIAXone 1 GM in NACL 0.9% 20 ML IV SCH (22:44)
[2017-05-29 05:48] LABS: Hematocrit 28.8 % (35.5-45.6); Hemoglobin 9.6 gm/dl (11.8-15.2); Mean Corpuscular HGB Conc 33 % (32-34); Mean Corpuscular Hemoglobin 29 pg (28-32); Mean Corpuscular Volume 88 fl (84-94); Platelet Count 150 K/mm3 (140-440); Red Blood Count 3.28 M/mm3 (3.65-5.03); Red Cell Distribution Width 14.1 % (13.2-15.2)
[2017-05-29 06:06] LABS: Calcium 7.5 mg/dL (8.4-10.2)
[2017-05-29 07:15] LABS: Basophils % (Manual) 0 % (0.0-1.8); Total Cells Counted 100
[2017-05-29 07:16] LABS: RBC Morphology Normal
[2017-05-29] MEDS: HumaLOG SUB-Q SCH ×4 (08:00→22:30)
--- NOTE | 2017-05-29 08:52 | Progress Note ---
Subjective Date of service: 05/29/17 Principal diagnosis: sepsis, ARF, Afib Interval history: This is a 82-year-old man with a history of hypertension, diabetes, BPH was brought to the emergency room for evaluation of generalized weakness and fall. He was found to have acute renal failure, is slowly and became dislodged and it was replaced in the emergency room. Urine is blood tinged. Patient is unable to give a history. blood sugar 200-300 range beltre draining marroon urine (?beltre trauma) cr 4.6 now 3.9 CTAP (05-29-17)--beltre in bladder, improved air atrophic kidney AP BPH hemautria--suspect beltre trauma (ok to dc home & f/u with Dr. Marin in our group) continue beltre Objective - Constitutional Vitals: Vital Signs - 12hr 05/28/17 05/28/17 05/28/17 20:52 21:39 22:00 Temperature 97.3 F L 97.5 F L Pulse Rate 71 73 72 Respiratory 20 20 Rate Blood Pressure 142/68 136/61 O2 Sat by Pulse 99 99 Oximetry 05/28/17 05/28/17 05/29/17 22:42 23:48 03:42 Temperature 97.8 F 98.3 F Pulse Rate 80 63 70 Respiratory 18 18 Rate Blood Pressure 142/68 112/59 132/69 O2 Sat by Pulse 90 99 Oximetry 05/29/17 08:08 Temperature 98.0 F Pulse Rate 68 Respiratory 20 Rate Blood Pressure 113/51 O2 Sat by Pulse 100 Oximetry - Labs CBC & Chem 7: 05/29/17 05:33 05/29/17 05:33 Labs: Abnormal lab results 05/29/17 05/29/17 Range/Units 05:33 05:33 WBC 15.2 H (4.5-11.0) K/mm3 RBC 3.28 L (3.65-5.03) M/mm3 Hgb 9.6 L (11.8-15.2) gm/dl Hct 28.8 L (35.5-45.6) % Seg Neuts % (Manual) 75.0 H (40.0-70.0) % Lymphocytes % (Manual) 13.0 L (13.4-35.0) % Eosinophils % (Manual) 5.0 H (0.0-4.3) % Seg Neutrophils # Man 11.4 H (1.8-7.7) K/mm3 Monocytes # (Manual) 1.1 H (0.0-0.8) K/mm3 Eosinophils # (Manual) 0.8 H (0.0-0.4) K/mm3 Sodium 135 L (137-145) mmol/L Chloride 94.6 L (98-107) mmol/L BUN 47 H (9-20) mg/dL Creatinine 3.9 H (0.8-1.5) mg/dL Glucose 265 H (75-100) mg/dL Calcium 7.5 L (8.4-10.2) mg/dL
--- NOTE | 2017-05-29 09:39 | Cat Scan Report ---
CT ABDOMEN PELVIS WITHOUT CONTRAST: HISTORY: Hematuria, indwelling Valle. COMPARISON: 05/20/17. TECHNIQUE: Helical CT in 1.25mm intervals without IV contrast. Sagittal and coronal reconstructions. FINDINGS: Lung bases: Adequately aerated. Normal heart size. Liver: Normal. Biliary system: Normal. Pancreas: Normal. Spleen: Normal. Kidneys/ureters/bladder: The left kidney is atrophic. The right kidney is normal size and contains a multiseptated cyst near mid pole measuring up to 7.2 cm. No large renal stones or ureteral stones. The ureters are normal course and caliber. The bladder is decompressed with a Valle catheter. 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 Trace blood is identified in the base of the bladder. The etiology of this blood is unclear. Adrenal glands: Normal. Aorta: Mild diffuse calcifications. No aneurysm. Intestines: Within normal limits given no oral contrast was administered. Appendix: Normal. Pelvic viscera: Normal. Ascites: None. Adenopathy: None. Musculoskeletal: Osteopenia. Moderate thoracolumbar spondylosis. IMPRESSION: Emphysematous cystitis has improved since 05/20/17. The bladder is empty and contains a Valle catheter. Trace blood is identified in the bladder of uncertain origin. No obvious nephrolithiasis or hydronephrosis. Stable right renal cysts and left renal atrophy.
[2017-05-29] MEDS: CORDARONE PO SCH ×2 (11:03→22:29)
[2017-05-29] MEDS: LOPRESSOR PO SCH ×2 (11:03→22:29)
--- NOTE | 2017-05-29 15:27 | Progress Note ---
Assessment and Plan - Patient Problems (1) Acute renal failure superimposed on chronic kidney disease Current Visit: Yes Status: Acute Plan to address problem: possible progression of CKD to end-stage renal disease. So far no significant recovery of renal function seen. Outpatient dialysis has been arranged at [facility]. Patient will get AV fistula placement as an Out Patient when infection issues resolved. Case management working on placement at subacute rehabilitation. (2) Obstructive uropathy Current Visit: Yes Status: Acute Plan to address problem: Status post Valle catheter changed by urology. Urology follow-up for hematuria (3) Sepsis due to urinary tract infection Current Visit: Yes Status: Acute Plan to address problem: CT suggests gas-forming urinary tract infection. Continue antibiotics and follow up (4) Type 2 diabetes mellitus with diabetic nephropathy Current Visit: Yes Status: Acute Plan to address problem: Blood sugar management by primary attending (5) Hypertensive chronic kidney disease with stage 5 chronic kidney disease or end stage renal disease Current Visit: Yes Status: Acute Plan to address problem: monitor BP on current meds (6) Metabolic acidosis Current Visit: Yes Status: Acute Plan to address problem: Improving with dialysis. (7) Metabolic encephalopathy Current Visit: Yes Status: Acute Plan to address problem: Improving with dialysis. manager of creative services to arrange placement at subacute rehabilitation (8) Hypokalemia Current Visit: Yes Status: Acute Plan to address problem: supplement with K May Subjective Date of service: 05/29/17 Principal diagnosis: sepsis, ARF, Afib Interval history: Pt awake, alert, in no acute distress, denies fever, chills, n/v/d, SOB, CP, palpitations. Objective - Vital Signs Vital signs: Vital Signs - 12hr 05/29/17 05/29/17 05/29/17 03:42 08:08 11:06 Temperature 98.3 F 98.0 F 97.8 F Pulse Rate 70 68 72 Respiratory 18 20 20 Rate Blood Pressure 132/69 113/51 140/66 O2 Sat by Pulse 99 100 100 Oximetry - General Appearance General appearance: well-developed, well-nourished, appears stated age EENT: ATNC, PERRL, mucous membranes moist Neck: no JVD Respiratory: Present: Clear to Ascultation Cardiology: regular, S1S2 Gastrointestinal: normoactive bowel sounds, obese Integumentary: no rash, other (no edema ) Neurologic: no focal deficit, alert and oriented x3, strength 5/5, CN 3-12 intact Psychiatric: mood/affect appropriate, cooperative - Lab 05/29/17 05:33 05/29/17 05:33 Most recent lab results Calcium 7.5 mg/dL (8.4-10.2) L 05/29/17 05:33 Phosphorus 7.00 mg/dL (2.5-4.5) H 05/21/17 06:27 Magnesium 1.90 mg/dL (1.7-2.3) 05/22/17 05:03 Urine Creatinine < 4.2 mg/dL (0.1-20.0) 05/19/17 20:12 Urine Sodium 127 mmol/L 05/19/17 20:12
--- NOTE | 2017-05-29 16:41 | Event Note ---
Date: 05/29/17 Pt s/p Fem Vas cath for HD access. Pt continuing to require HD. Possible conversion of CKD to ESRD. BC neg for 5 days. Will Plan on PC insertion on Thursday. If any objections please let us know.
--- NOTE | 2017-05-29 18:29 | Progress Note ---
Assessment and Plan Assessment and plan: --Gross hematuria: Gross hematuria is slightly improved Dr. Dale ,Urology evaluated the patient, a CT abdomen and pelvis, Hemodynamically stable at this point, HB 10.7 --Sepsis; secondary to Escherichia coli UTI: Continue IV Rocephin per ID , and he is supportive care, oral Levaquin upon discharge, stop date 06/03/17,per ID --Atrial fibrillation with RVR: Now rate controlled s/p amio drip, Cont. amio 400mg BID and lopressor to 50mg PO BID Not a candidate for chronic anticoagulation at this point due to gross hematuria per Cardiology . Can start anticoagulation when hematuria improves . --Complicated -UTI with right Hydronephrosis . Valle catheter changed. Urology following. CT of the abdomen showed gas forming infection in there urinary tract with moderate hydroureter in the left and mild hydroureter on the right. Ultrasound of the kidney showed moderate to severe right hydronephrosis with bladder calcification. 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 --Abnormal cardiac enzymes; now stable --BPH; urology extensively evaluated the patient , continuous Valle catheterization and supportive care --Hypertension. Stable on medications --Moderate pulmonary hypertension. Stable --Diabetes mellitus type II. Accu-Cheks and slight scale insulin. --DVT prophylaxis; SCDs, a pharmacologic anticoagulation in view of gross hematuria --Full CODE STATUS If patient is stable and can be discharged to SNF tomorrow Plan of care reviewed with the patient, his nurse and the case management History Interval history: Patient seen and examined this morning medical records reviewed Pathology evaluation and recommendation noted and appreciated CT abdomen and pelvis without contrast obtained Some dark blood in the urinary catheter Patient has no new complaints Vital signs reviewed Hospitalist Physical - Constitutional Vitals: Temp Pulse Resp BP Pulse Ox 97.3 F L 63 20 137/63 99 05/29/17 15:06 05/29/17 15:06 05/29/17 15:06 05/29/17 15:06 05/29/17 15:06 General appearance: Present: no acute distress, well-nourished - EENT Eyes: Present: PERRL, EOM intact - Neck Neck: Present: supple, normal ROM - Respiratory Respiratory effort: normal Respiratory: bilateral: diminished, negative: rales, rhonchi, wheezing - Cardiovascular Rhythm: regular Heart Sounds: Present: S1 & S2 - Extremities Extremities: no ischemia, No edema - Abdominal General gastrointestinal: soft, non-tender, non-distended, normal bowel sounds - Integumentary Integumentary: Present: clear, warm - Psychiatric Psychiatric: appropriate mood/affect, cooperative - Neurologic Neurologic: CNII-XII intact, moves all extremities Results - Labs CBC & Chem 7: 05/29/17 05:33 05/29/17 05:33 Labs: Laboratory Last Values WBC 15.2 K/mm3 (4.5-11.0) H 05/29/17 05:33 RBC 3.28 M/mm3 (3.65-5.03) L 05/29/17 05:33 Hgb 9.6 gm/dl (11.8-15.2) L 05/29/17 05:33 Hct 28.8 % (35.5-45.6) L 05/29/17 05:33 MCV 88 fl (84-94) 05/29/17 05:33 MCH 29 pg (28-32) 05/29/17 05:33 MCHC 33 % (32-34) 05/29/17 05:33 RDW 14.1 % (13.2-15.2) 05/29/17 05:33 Plt Count 150 K/mm3 (140-440) 05/29/17 05:33 [place] % (Auto) Target Trimmer 05/29/17 05:33 Add Manual Diff Complete 05/29/17 05:33 Total Counted 100 05/29/17 05:33 Seg Neuts % (Manual) 75.0 % (40.0-70.0) H 05/29/17 05:33 Band Neutrophils % 0 % 05/29/17 05:33 Lymphocytes % (Manual) 13.0 % (13.4-35.0) L 05/29/17 05:33 Reactive Lymphs % (Man) 0 % 05/29/17 05:33 Monocytes % (Manual) 7.0 % (0.0-7.3) 05/29/17 05:33 Eosinophils % (Manual) 5.0 % (0.0-4.3) H 05/29/17 05:33 Basophils % (Manual) 0 % (0.0-1.8) 05/29/17 05:33 Metamyelocytes % 0 % 05/29/17 05:33 Myelocytes % 0 % 05/29/17 05:33 Promyelocytes % 0 % 05/29/17 05:33 Blast Cells % 0 % 05/29/17 05:33 Nucleated RBC % Not Reportable 05/29/17 05:33 Seg Neutrophils # Man 11.4 K/mm3 (1.8-7.7) H 05/29/17 05:33 Band Neutrophils # 0.0 K/mm3 05/29/17 05:33 Lymphocytes # (Manual) 2.0 K/mm3 (1.2-5.4) 05/29/17 05:33 Abs React Lymphs (Man) 0.0 K/mm3 05/29/17 05:33 Monocytes # (Manual) 1.1 K/mm3 (0.0-0.8) H 05/29/17 05:33 Eosinophils # (Manual) 0.8 K/mm3 (0.0-0.4) H 05/29/17 05:33 Basophils # (Manual) 0.0 K/mm3 (0.0-0.1) 05/29/17 05:33 Metamyelocytes # 0.0 K/mm3 05/29/17 05:33 Myelocytes # 0.0 K/mm3 05/29/17 05:33 Promyelocytes # 0.0 K/mm3 05/29/17 05:33 Blast Cells # 0.0 K/mm3 05/29/17 05:33 WBC Morphology Not Reportable 05/29/17 05:33 Hypersegmented Neuts Not Reportable 05/29/17 05:33 Hyposegmented Neuts Not Reportable 05/29/17 05:33 Hypogranular Neuts Not Reportable 05/29/17 05:33 Smudge Cells Not Reportable 05/29/17 05:33 Toxic Granulation Not Reportable 05/29/17 05:33 Toxic Vacuolation Not Reportable 05/29/17 05:33 Dohle Bodies Not Reportable 05/29/17 05:33 Pelger-Huet Anomaly Not Reportable 05/29/17 05:33 Romina Rods Not Reportable 05/29/17 05:33 Platelet Estimate Appears normal 05/29/17 05:33 Clumped Platelets Not Reportable 05/29/17 05:33 Plt Clumps, EDTA Not Reportable 05/29/17 05:33 Large Platelets Not Reportable 05/29/17 05:33 Giant Platelets Not Reportable 05/29/17 05:33 Platelet Satelliting Not Reportable 05/29/17 05:33 Plt Morphology Comment Not Reportable 05/29/17 05:33 RBC Morphology Normal 05/29/17 05:33 Dimorphic RBCs Not Reportable 05/29/17 05:33 Polychromasia Not Reportable 05/29/17 05:33 Hypochromasia Not Reportable 05/29/17 05:33 Poikilocytosis Not Reportable 05/29/17 05:33 Anisocytosis Not Reportable 05/29/17 05:33 Microcytosis Not Reportable 05/29/17 05:33 Macrocytosis Not Reportable 05/29/17 05:33 Spherocytes Not Reportable 05/29/17 05:33 Pappenheimer Bodies Not Reportable 05/29/17 05:33 Sickle Cells Not Reportable 05/29/17 05:33 Target Cells Not Reportable 05/29/17 05:33 Tear Drop Cells Not Reportable 05/29/17 05:33 Ovalocytes Not Reportable 05/29/17 05:33 Helmet Cells Not Reportable 05/29/17 05:33 [place] Bodies Not Reportable 05/29/17 05:33 [place] Rings Not Reportable 05/29/17 05:33 [place] Cells Not Reportable 05/29/17 05:33 Bite Cells Not Reportable 05/29/17 05:33 Crenated Cell Not Reportable 05/29/17 05:33 Elliptocytes Not Reportable 05/29/17 05:33 Acanthocytes (Spur) Not Reportable 05/29/17 05:33 Rouleaux Not Reportable 05/29/17 05:33 Hemoglobin C Crystals Not Reportable 05/29/17 05:33 Schistocytes Not Reportable 05/29/17 05:33 Malaria parasites Not Reportable 05/29/17 05:33 Bob Bodies Not Reportable 05/29/17 05:33 Hem Pathologist Commnt No 05/29/17 05:33 PT 16.0 Sec. (12.2-14.9) H 05/21/17 06:27 INR 1.21 (0.87-1.13) H 05/21/17 06:27 Sodium 135 mmol/L (137-145) L 05/29/17 05:33 Potassium 4.2 mmol/L (3.6-5.0) 05/29/17 05:33 Chloride 94.6 mmol/L (98-107) L 05/29/17 05:33 Carbon Dioxide 24 mmol/L (22-30) 05/29/17 05:33 Anion Gap 21 mmol/L 05/29/17 05:33 BUN 47 mg/dL (9-20) H 05/29/17 05:33 Creatinine 3.9 mg/dL (0.8-1.5) H 05/29/17 05:33 Estimated GFR 18 ml/min 05/29/17 05:33 BUN/Creatinine Ratio 12 % 05/29/17 05:33 Glucose 265 mg/dL (75-100) H 05/29/17 05:33 POC Glucose 259 (70-105) H 05/29/17 17:53 Hemoglobin A1c 11.2 % (4-6) H 05/28/17 05:34 Lactic Acid 1.70 mmol/L (0.7-2.0) 05/21/17 15:16 Calcium 7.5 mg/dL (8.4-10.2) L 05/29/17 05:33 Phosphorus 7.00 mg/dL (2.5-4.5) H 05/21/17 06:27 Magnesium 1.90 mg/dL (1.7-2.3) 05/22/17 05:03 Total Bilirubin 0.20 mg/dL (0.1-1.2) 05/23/17 06:32 AST 14 units/L (5-40) 05/23/17 06:32 ALT 11 units/L (7-56) 05/23/17 06:32 Alkaline Phosphatase 61 units/L (35-129) 05/23/17 06:32 Total Creatine Kinase 122 units/L (55-170) 05/21/17 06:27 CK-MB (CK-2) 4.4 ng/mL (0.0-4.0) H 05/21/17 06:27 CK-MB (CK-2) Rel Index 3.6 (0-4) 05/21/17 06:27 Troponin T 0.113 ng/mL (0.00-0.029) H* 05/21/17 06:27 NT-Pro-B Natriuret Pep 4670 pg/mL (0-900) H 05/19/17 17:24 Total Protein 6.1 g/dL (6.3-8.2) L 05/23/17 06:32 Albumin 1.9 g/dL (3.9-5) L 05/23/17 06:32 Albumin/Globulin Ratio 0.5 % 05/23/17 06:32 Triglycerides 160 mg/dL (2-149) H 05/19/17 17:24 Cholesterol 151 mg/dL (50-199) 05/19/17 17:24 LDL Cholesterol Direct 93 mg/dL (50-130) 05/19/17 17:24 HDL Cholesterol 26 mg/dL (40-59) L 05/19/17 17:24 Cholesterol/HDL Ratio 5.80 % 05/19/17 17:24 TSH 1.390 mlU/mL (0.270-4.200) 05/20/17 15:28 Free T4 0.95 ng/dL (0.76-1.46) 05/20/17 15:28 PTH Intact 370.6 pg/mL (15-65) H 05/21/17 06:27 Urine Color Red (Yellow) 05/19/17 20:12 Urine Turbidity Turbid (Clear) 05/19/17 20:12 Urine pH 8.0 (5.0-7.0) H 05/19/17 20:12 Ur Specific [place] 1.018 (1.003-1.030) 05/19/17 20:12 Urine Protein 100 mg/dl mg/dL (Negative) 05/19/17 20:12 Urine Glucose (UA) Neg mg/dL (Negative) 05/19/17 20:12 Urine Ketones Neg mg/dL (Negative) 05/19/17 20:12 Urine Blood Lg (Negative) 05/19/17 20:12 Urine Nitrite Neg (Negative) 05/19/17 20:12 Urine Bilirubin Neg (Negative) 05/19/17 20:12 Urine Urobilinogen < 2.0 mg/dL (<2.0) 05/19/17 20:12 Ur Leukocyte Esterase Mod (Negative) 05/19/17 20:12 Urine WBC (Auto) > 182.0 /HPF (0.0-6.0) H 05/19/17 20:12 Urine RBC (Auto) > 182.0 /HPF (0.0-6.0) 05/19/17 20:12 Urine Mucus 3+ /HPF 05/19/17 20:12 Urine Creatinine < 4.2 mg/dL (0.1-20.0) 05/19/17 20:12 Urine Sodium 127 mmol/L 05/19/17 20:12 RENY Screen Negative (Negative) 05/20/17 05:52 Proteinase 3 (PR3) Ab <1.0 AI (<1.0) 05/20/17 05:52 Myeloperoxidase Ab <1.0 AI (<1.0) 05/20/17 05:52 Complement C3 113 mg/dL () 05/20/17 05:52 Complement C4 20 mg/dL () 05/20/17 05:52 Hepatitis A IgM Ab Non-reactive (NonReactive) 05/22/17 18:01 Hep Bs Antigen Non-reactive (Negative) 05/22/17 18:01 Hep B Core IgM Ab Non-reactive (NonReactive) 05/22/17 18:01 Hepatitis C Antibody Non-reactive (NonReactive) 05/22/17 18:01
[2017-05-29] MEDS: cefTRIAXone 1 GM in NACL 0.9% 20 ML IV SCH (22:30)
[2017-05-30] MEDS: CORDARONE PO SCH ×2 (10:37→22:07)
[2017-05-30] MEDS: HumaLOG SUB-Q SCH ×4 (10:38→22:07)
[2017-05-30] MEDS: LOPRESSOR PO SCH ×2 (10:50→22:07)
--- NOTE | 2017-05-30 11:58 | Progress Note ---
Assessment and Plan - Patient Problems (1) Acute renal failure superimposed on chronic kidney disease Current Visit: Yes Status: Acute Plan to address problem: possible progression of CKD to end-stage renal disease. So far no significant recovery of renal function seen. Outpatient dialysis has been arranged at [facility]. Patient will get AV fistula placement as an Out Patient when infection issues resolved. for permcath on Thursday. Case management working on placement at subacute rehabilitation. (2) Obstructive uropathy Current Visit: Yes Status: Acute Plan to address problem: Status post Valle catheter changed by urology. Urology follow-up for hematuria (3) Sepsis due to urinary tract infection Current Visit: Yes Status: Acute Plan to address problem: CT suggests gas-forming urinary tract infection. Continue antibiotics and follow up (4) Type 2 diabetes mellitus with diabetic nephropathy Current Visit: Yes Status: Acute Plan to address problem: Blood sugar management by primary attending (5) Hypertensive chronic kidney disease with stage 5 chronic kidney disease or end stage renal disease Current Visit: Yes Status: Acute Plan to address problem: monitor BP on current meds (6) Metabolic acidosis Current Visit: Yes Status: Acute Plan to address problem: Improving with dialysis. (7) Metabolic encephalopathy Current Visit: Yes Status: Acute Plan to address problem: Improving with dialysis. geographic information systems manager to arrange placement at subacute rehabilitation (8) Hypokalemia Current Visit: Yes Status: Acute Plan to address problem: supplement with [place] Subjective Date of service: 05/30/17 Principal diagnosis: sepsis, ARF, Afib Interval history: Pt awake, alert, in no acute distress, denies fever, chills, n/v/d, SOB, CP, palpitations. Objective - Vital Signs Vital signs: Vital Signs - 12hr 05/30/17 05/30/17 05/30/17 01:10 01:11 05:44 Temperature 97.5 F L Pulse Rate 61 Respiratory 20 Rate Blood Pressure 118/53 O2 Sat by Pulse 97 Oximetry 05/30/17 05/30/17 08:12 10:50 Temperature 97.3 F L Pulse Rate 64 69 Respiratory 20 Rate Blood Pressure 127/55 127/55 O2 Sat by Pulse 97 Oximetry - General Appearance General appearance: well-developed, well-nourished, appears stated age EENT: ATNC, PERRL, mucous membranes moist Neck: no JVD Respiratory: Present: Clear to Ascultation Cardiology: regular, S1S2 Gastrointestinal: normoactive bowel sounds Integumentary: no rash, other (no edema ) Neurologic: no focal deficit, alert and oriented x3, strength 5/5, CN 3-12 intact Psychiatric: mood/affect appropriate, cooperative - Lab 05/29/17 05:33 05/29/17 05:33 Most recent lab results Calcium 7.5 mg/dL (8.4-10.2) L 05/29/17 05:33 Phosphorus 7.00 mg/dL (2.5-4.5) H 05/21/17 06:27 Magnesium 1.90 mg/dL (1.7-2.3) 05/22/17 05:03 Urine Creatinine < 4.2 mg/dL (0.1-20.0) 05/19/17 20:12 Urine Sodium 127 mmol/L 05/19/17 20:12
[2017-05-30] MEDS ORDERED: NACL 0.9% 1000 ML 2,000 ML ONE (17:03)
[2017-05-30] MEDS: TYLENOL PO PRN (17:09)
[2017-05-30] MEDS: HEPARIN IV PRN (17:11)
--- NOTE | 2017-05-30 19:31 | Progress Note ---
Assessment and Plan Assessment and plan: --Gross hematuria: Significantly improved, brown tinged urine Dr. 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 amio 400mg BID and lopressor to 50mg PO BID Not a candidate for chronic anticoagulation at this point due to gross hematuria per Cardiology . Can start anticoagulation when hematuria improves . --Complicated -UTI with right Hydronephrosis . Valle catheter changed. Urology following. CT of the abdomen showed gas forming infection in there urinary tract with moderate hydroureter in the left and mild hydroureter on the right. Ultrasound of the kidney showed moderate to severe right hydronephrosis with bladder calcification. --Toxic metabolic encephalopathy: Significantly improved , secondary to uremic encephalopathy and sepsis. --Abnormal cardiac enzymes; now stable --BPH; urology extensively evaluated the patient , continuous Valle catheterization and supportive care --Hypertension. Stable on medications --Moderate pulmonary hypertension. Stable --Diabetes mellitus type II. Accu-Cheks and slight scale insulin. --DVT prophylaxis; SCDs, a pharmacologic anticoagulation in view of gross hematuria --Full CODE STATUS SNF placement in progress Plan of care reviewed with the patient, his nurse and the case management Possible discharge after permacath if stable History Interval history: Patient seen and examined medical records reviewed No new episodes of gross hematuria Patient has dark brown tinged urine in the urine bag Receiving hemodialysis per schedule Possible permacath on 06/01/2017 Patient has no new complaints alert awake oriented 3 Vital signs reviewed Hospitalist Physical - Constitutional Vitals: Temp Pulse Resp BP Pulse Ox 97.7 F 74 16 102/53 99 05/30/17 16:15 05/30/17 18:58 05/30/17 17:09 05/30/17 18:58 05/30/17 11:57 General appearance: Present: no acute distress, well-nourished - EENT Eyes: Present: PERRL, EOM intact - Neck Neck: Present: supple, normal ROM - Respiratory Respiratory effort: normal Respiratory: bilateral: diminished, negative: rales, rhonchi, wheezing - Cardiovascular Rhythm: regular Heart Sounds: Present: S1 & S2 - Extremities Extremities: no ischemia, No edema - Abdominal General gastrointestinal: soft, non-tender, non-distended, normal bowel sounds - Integumentary Integumentary: Present: clear, warm - Psychiatric Psychiatric: appropriate mood/affect, cooperative - Neurologic Neurologic: CNII-XII intact, moves all extremities Results - Labs CBC & Chem 7: 05/29/17 05:33 05/29/17 05:33 Labs: Laboratory Last Values WBC 15.2 K/mm3 (4.5-11.0) H 05/29/17 05:33 RBC 3.28 M/mm3 (3.65-5.03) L 05/29/17 05:33 Hgb 9.6 gm/dl (11.8-15.2) L 05/29/17 05:33 Hct 28.8 % (35.5-45.6) L 05/29/17 05:33 MCV 88 fl (84-94) 05/29/17 05:33 MCH 29 pg (28-32) 05/29/17 05:33 MCHC 33 % (32-34) 05/29/17 05:33 RDW 14.1 % (13.2-15.2) 05/29/17 05:33 Plt Count 150 K/mm3 (140-440) 05/29/17 05:33 [place] % (Auto) Director Of [employer] 05/29/17 05:33 Add Manual Diff Complete 05/29/17 05:33 Total Counted 100 05/29/17 05:33 Seg Neuts % (Manual) 75.0 % (40.0-70.0) H 05/29/17 05:33 Band Neutrophils % 0 % 05/29/17 05:33 Lymphocytes % (Manual) 13.0 % (13.4-35.0) L 05/29/17 05:33 Reactive Lymphs % (Man) 0 % 05/29/17 05:33 Monocytes % (Manual) 7.0 % (0.0-7.3) 05/29/17 05:33 Eosinophils % (Manual) 5.0 % (0.0-4.3) H 05/29/17 05:33 Basophils % (Manual) 0 % (0.0-1.8) 05/29/17 05:33 Metamyelocytes % 0 % 05/29/17 05:33 Myelocytes % 0 % 05/29/17 05:33 Promyelocytes % 0 % 05/29/17 05:33 Blast Cells % 0 % 05/29/17 05:33 Nucleated RBC % Not Reportable 05/29/17 05:33 Seg Neutrophils # Man 11.4 K/mm3 (1.8-7.7) H 05/29/17 05:33 Band Neutrophils # 0.0 K/mm3 05/29/17 05:33 Lymphocytes # (Manual) 2.0 K/mm3 (1.2-5.4) 05/29/17 05:33 Abs React Lymphs (Man) 0.0 K/mm3 05/29/17 05:33 Monocytes # (Manual) 1.1 K/mm3 (0.0-0.8) H 05/29/17 05:33 Eosinophils # (Manual) 0.8 K/mm3 (0.0-0.4) H 05/29/17 05:33 Basophils # (Manual) 0.0 K/mm3 (0.0-0.1) 05/29/17 05:33 Metamyelocytes # 0.0 K/mm3 05/29/17 05:33 Myelocytes # 0.0 K/mm3 05/29/17 05:33 Promyelocytes # 0.0 K/mm3 05/29/17 05:33 Blast Cells # 0.0 K/mm3 05/29/17 05:33 WBC Morphology Not Reportable 05/29/17 05:33 Hypersegmented Neuts Not Reportable 05/29/17 05:33 Hyposegmented Neuts Not Reportable 05/29/17 05:33 Hypogranular Neuts Not Reportable 05/29/17 05:33 Smudge Cells Not Reportable 05/29/17 05:33 Toxic Granulation Not Reportable 05/29/17 05:33 Toxic Vacuolation Not Reportable 05/29/17 05:33 Dohle Bodies Not Reportable 05/29/17 05:33 Pelger-Huet Anomaly Not Reportable 05/29/17 05:33 Romina Rods Not Reportable 05/29/17 05:33 Platelet Estimate Appears normal 05/29/17 05:33 Clumped Platelets Not Reportable 05/29/17 05:33 Plt Clumps, EDTA Not Reportable 05/29/17 05:33 Large Platelets Not Reportable 05/29/17 05:33 Giant Platelets Not Reportable 05/29/17 05:33 Platelet Satelliting Not Reportable 05/29/17 05:33 Plt Morphology Comment Not Reportable 05/29/17 05:33 RBC Morphology Normal 05/29/17 05:33 Dimorphic RBCs Not Reportable 05/29/17 05:33 Polychromasia Not Reportable 05/29/17 05:33 Hypochromasia Not Reportable 05/29/17 05:33 Poikilocytosis Not Reportable 05/29/17 05:33 Anisocytosis Not Reportable 05/29/17 05:33 Microcytosis Not Reportable 05/29/17 05:33 Macrocytosis Not Reportable 05/29/17 05:33 Spherocytes Not Reportable 05/29/17 05:33 Pappenheimer Bodies Not Reportable 05/29/17 05:33 Sickle Cells Not Reportable 05/29/17 05:33 Target Cells Not Reportable 05/29/17 05:33 Tear Drop Cells Not Reportable 05/29/17 05:33 Ovalocytes Not Reportable 05/29/17 05:33 Helmet Cells Not Reportable 05/29/17 05:33 [place] Bodies Not Reportable 05/29/17 05:33 [place] Rings Not Reportable 05/29/17 05:33 [place] Cells Not Reportable 05/29/17 05:33 Bite Cells Not Reportable 05/29/17 05:33 Crenated Cell Not Reportable 05/29/17 05:33 Elliptocytes Not Reportable 05/29/17 05:33 Acanthocytes (Spur) Not Reportable 05/29/17 05:33 Rouleaux Not Reportable 05/29/17 05:33 Hemoglobin C Crystals Not Reportable 05/29/17 05:33 Schistocytes Not Reportable 05/29/17 05:33 Malaria parasites Not Reportable 05/29/17 05:33 Bob Bodies Not Reportable 05/29/17 05:33 Hem Pathologist Commnt No 05/29/17 05:33 PT 16.0 Sec. (12.2-14.9) H 05/21/17 06:27 INR 1.21 (0.87-1.13) H 05/21/17 06:27 Sodium 135 mmol/L (137-145) L 05/29/17 05:33 Potassium 4.2 mmol/L (3.6-5.0) 05/29/17 05:33 Chloride 94.6 mmol/L (98-107) L 05/29/17 05:33 Carbon Dioxide 24 mmol/L (22-30) 05/29/17 05:33 Anion Gap 21 mmol/L 05/29/17 05:33 BUN 47 mg/dL (9-20) H 05/29/17 05:33 Creatinine 3.9 mg/dL (0.8-1.5) H 05/29/17 05:33 Estimated GFR 18 ml/min 05/29/17 05:33 BUN/Creatinine Ratio 12 % 05/29/17 05:33 Glucose 265 mg/dL (75-100) H 05/29/17 05:33 POC Glucose 267 (70-105) H 05/30/17 10:59 Hemoglobin A1c 11.2 % (4-6) H 05/28/17 05:34 Lactic Acid 1.70 mmol/L (0.7-2.0) 05/21/17 15:16 Calcium 7.5 mg/dL (8.4-10.2) L 05/29/17 05:33 Phosphorus 7.00 mg/dL (2.5-4.5) H 05/21/17 06:27 Magnesium 1.90 mg/dL (1.7-2.3) 05/22/17 05:03 Total Bilirubin 0.20 mg/dL (0.1-1.2) 05/23/17 06:32 AST 14 units/L (5-40) 05/23/17 06:32 ALT 11 units/L (7-56) 05/23/17 06:32 Alkaline Phosphatase 61 units/L (35-129) 05/23/17 06:32 Total Creatine Kinase 122 units/L (55-170) 05/21/17 06:27 CK-MB (CK-2) 4.4 ng/mL (0.0-4.0) H 05/21/17 06:27 CK-MB (CK-2) Rel Index 3.6 (0-4) 05/21/17 06:27 Troponin T 0.113 ng/mL (0.00-0.029) H* 05/21/17 06:27 NT-Pro-B Natriuret Pep 4670 pg/mL (0-900) H 05/19/17 17:24 Total Protein 6.1 g/dL (6.3-8.2) L 05/23/17 06:32 Albumin 1.9 g/dL (3.9-5) L 05/23/17 06:32 Albumin/Globulin Ratio 0.5 % 05/23/17 06:32 Triglycerides 160 mg/dL (2-149) H 05/19/17 17:24 Cholesterol 151 mg/dL (50-199) 05/19/17 17:24 LDL Cholesterol Direct 93 mg/dL (50-130) 05/19/17 17:24 HDL Cholesterol 26 mg/dL (40-59) L 05/19/17 17:24 Cholesterol/HDL Ratio 5.80 % 05/19/17 17:24 TSH 1.390 mlU/mL (0.270-4.200) 05/20/17 15:28 Free T4 0.95 ng/dL (0.76-1.46) 05/20/17 15:28 PTH Intact 370.6 pg/mL (15-65) H 05/21/17 06:27 Urine Color Red (Yellow) 05/19/17 20:12 Urine Turbidity Turbid (Clear) 05/19/17 20:12 Urine pH 8.0 (5.0-7.0) H 05/19/17 20:12 Ur Specific [place] 1.018 (1.003-1.030) 05/19/17 20:12 Urine Protein 100 mg/dl mg/dL (Negative) 05/19/17 20:12 Urine Glucose (UA) Neg mg/dL (Negative) 05/19/17 20:12 Urine Ketones Neg mg/dL (Negative) 05/19/17 20:12 Urine Blood Lg (Negative) 05/19/17 20:12 Urine Nitrite Neg (Negative) 05/19/17 20:12 Urine Bilirubin Neg (Negative) 05/19/17 20:12 Urine Urobilinogen < 2.0 mg/dL (<2.0) 05/19/17 20:12 Ur Leukocyte Esterase Mod (Negative) 05/19/17 20:12 Urine WBC (Auto) > 182.0 /HPF (0.0-6.0) H 05/19/17 20:12 Urine RBC (Auto) > 182.0 /HPF (0.0-6.0) 05/19/17 20:12 Urine Mucus 3+ /HPF 05/19/17 20:12 Urine Creatinine < 4.2 mg/dL (0.1-20.0) 05/19/17 20:12 Urine Sodium 127 mmol/L 05/19/17 20:12 RENY Screen Negative (Negative) 05/20/17 05:52 Proteinase 3 (PR3) Ab <1.0 AI (<1.0) 05/20/17 05:52 Myeloperoxidase Ab <1.0 AI (<1.0) 05/20/17 05:52 Complement C3 113 mg/dL () 05/20/17 05:52 Complement C4 20 mg/dL () 05/20/17 05:52 Hepatitis A IgM Ab Non-reactive (NonReactive) 05/22/17 18:01 Hep Bs Antigen Non-reactive (Negative) 05/22/17 18:01 Hep B Core IgM Ab Non-reactive (NonReactive) 05/22/17 18:01 Hepatitis C Antibody Non-reactive (NonReactive) 05/22/17 18:01
[2017-05-30] MEDS: PERCOCET 5/325 PO PRN (22:08)
[2017-05-31] MEDS: HumaLOG SUB-Q SCH ×4 (10:27→23:00)
[2017-05-31] MEDS: LOPRESSOR PO SCH ×2 (10:27→23:00)
[2017-05-31] MEDS: CORDARONE PO SCH ×2 (10:28→22:59)
--- NOTE | 2017-05-31 14:10 | Progress Note ---
Assessment and Plan - Patient Problems (1) Acute renal failure superimposed on chronic kidney disease Current Visit: Yes Status: Acute Plan to address problem: possible progression of CKD to end-stage renal disease. So far no significant recovery of renal function seen. Outpatient dialysis has been arranged at [facility]. Patient will get AV fistula placement as an Out Patient when infection issues resolved. for permcath tentatively on Thursday. Case management working on placement at subacute rehabilitation. (2) Obstructive uropathy Current Visit: Yes Status: Acute Plan to address problem: Status post Valle catheter changed by urology. Urology follow-up for hematuria (3) Sepsis due to urinary tract infection Current Visit: Yes Status: Acute Plan to address problem: CT suggests gas-forming urinary tract infection. Continue antibiotics and follow up (4) Type 2 diabetes mellitus with diabetic nephropathy Current Visit: Yes Status: Acute Plan to address problem: Blood sugar management by primary attending (5) Hypertensive chronic kidney disease with stage 5 chronic kidney disease or end stage renal disease Current Visit: Yes Status: Acute Plan to address problem: monitor BP on current meds (6) Metabolic acidosis Current Visit: Yes Status: Acute Plan to address problem: Improving with dialysis. (7) Metabolic encephalopathy Current Visit: Yes Status: Acute Plan to address problem: Improving with dialysis. 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 Objective - Vital Signs Vital signs: Vital Signs - 12hr 05/31/17 05/31/17 05/31/17 04:45 08:34 10:27 Temperature 98.3 F 98.2 F Pulse Rate 76 88 80 Respiratory 18 20 Rate Blood Pressure 132/63 121/50 O2 Sat by Pulse 100 98 Oximetry 05/31/17 12:31 Temperature 97.9 F Pulse Rate 94 H Respiratory 20 Rate Blood Pressure 112/57 O2 Sat by Pulse 99 Oximetry - General Appearance General appearance: well-developed, well-nourished, appears stated age EENT: ATNC, PERRL, mucous membranes moist Neck: no JVD Respiratory: Present: Clear to Ascultation Cardiology: regular, S1S2 Gastrointestinal: normoactive bowel sounds Integumentary: no rash, other (no edema ) Neurologic: no focal deficit, alert and oriented x3, strength 5/5, CN 3-12 intact Psychiatric: mood/affect appropriate, cooperative - Lab 05/29/17 05:33 05/29/17 05:33 Most recent lab results Calcium 7.5 mg/dL (8.4-10.2) L 05/29/17 05:33 Phosphorus 7.00 mg/dL (2.5-4.5) H 05/21/17 06:27 Magnesium 1.90 mg/dL (1.7-2.3) 05/22/17 05:03 Urine Creatinine < 4.2 mg/dL (0.1-20.0) 05/19/17 20:12 Urine Sodium 127 mmol/L 05/19/17 20:12
--- NOTE | 2017-05-31 16:53 | Progress Note ---
Assessment and Plan Assessment and plan: --Sepsis; secondary to Escherichia coli UTI: on IV Rocephin per ID, oral Levaquin upon discharge, stop date 06/03/17,per ID --Gross hematuria: Significantly improved, brown tinged urine Dr. 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 --Complicated -UTI with right Hydronephrosis . Valle catheter changed. Urology following. CT of the abdomen showed gas forming infection in there urinary tract with moderate hydroureter in the left and mild hydroureter on the right. Significantly improved --Toxic metabolic encephalopathy: Uremic encephalopathy Significantly improved --Abnormal cardiac enzymes; now stable --BPH; urology extensively evaluated the patient , continuous Valle catheterization and supportive care --Hypertension. Stable on medications --Moderate pulmonary hypertension. Stable --Diabetes mellitus type II. Accu-Cheks and slight scale insulin. --DVT prophylaxis; SCDs, a pharmacologic anticoagulation in view of gross hematuria --Full CODE STATUS SNF placement when medically stable DC planning. Case management Plan of care reviewed with the patient, his nurse and the case management Possible discharge after permacath if stable History Interval history: Patient seen and examined medical records reviewed Feels better no new complaints Prolonged issues and the urinary bag, no piotr hematuria Patient is awaiting SNF placement Alert awake oriented 3 not in acute distress Vital signs reviewed stable Hospitalist Physical - Constitutional Vitals: Temp Pulse Resp BP Pulse Ox 97.9 F 94 H 20 112/57 99 05/31/17 12:31 05/31/17 12:31 05/31/17 12:31 05/31/17 12:31 05/31/17 12:31 General appearance: Present: no acute distress, well-nourished - EENT Eyes: Present: PERRL, EOM intact - Neck Neck: Present: supple, normal ROM - Respiratory Respiratory effort: normal Respiratory: bilateral: diminished, negative: rales, rhonchi, wheezing - Cardiovascular Rhythm: regular Heart Sounds: Present: S1 & S2 - Extremities Extremities: no ischemia, No edema - Abdominal General gastrointestinal: soft, non-tender, non-distended, normal bowel sounds - Integumentary Integumentary: Present: clear, warm - Psychiatric Psychiatric: appropriate mood/affect, cooperative - Neurologic Neurologic: CNII-XII intact, moves all extremities Results - Labs CBC & Chem 7: 05/29/17 05:33 05/29/17 05:33 Labs: Laboratory Last Values WBC 15.2 K/mm3 (4.5-11.0) H 05/29/17 05:33 RBC 3.28 M/mm3 (3.65-5.03) L 05/29/17 05:33 Hgb 9.6 gm/dl (11.8-15.2) L 05/29/17 05:33 Hct 28.8 % (35.5-45.6) L 05/29/17 05:33 MCV 88 fl (84-94) 05/29/17 05:33 MCH 29 pg (28-32) 05/29/17 05:33 MCHC 33 % (32-34) 05/29/17 05:33 RDW 14.1 % (13.2-15.2) 05/29/17 05:33 Plt Count 150 K/mm3 (140-440) 05/29/17 05:33 [place] % (Auto) Pharmacognosist 05/29/17 05:33 Add Manual Diff Complete 05/29/17 05:33 Total Counted 100 05/29/17 05:33 Seg Neuts % (Manual) 75.0 % (40.0-70.0) H 05/29/17 05:33 Band Neutrophils % 0 % 05/29/17 05:33 Lymphocytes % (Manual) 13.0 % (13.4-35.0) L 05/29/17 05:33 Reactive Lymphs % (Man) 0 % 05/29/17 05:33 Monocytes % (Manual) 7.0 % (0.0-7.3) 05/29/17 05:33 Eosinophils % (Manual) 5.0 % (0.0-4.3) H 05/29/17 05:33 Basophils % (Manual) 0 % (0.0-1.8) 05/29/17 05:33 Metamyelocytes % 0 % 05/29/17 05:33 Myelocytes % 0 % 05/29/17 05:33 Promyelocytes % 0 % 05/29/17 05:33 Blast Cells % 0 % 05/29/17 05:33 Nucleated RBC % Not Reportable 05/29/17 05:33 Seg Neutrophils # Man 11.4 K/mm3 (1.8-7.7) H 05/29/17 05:33 Band Neutrophils # 0.0 K/mm3 05/29/17 05:33 Lymphocytes # (Manual) 2.0 K/mm3 (1.2-5.4) 05/29/17 05:33 Abs React Lymphs (Man) 0.0 K/mm3 05/29/17 05:33 Monocytes # (Manual) 1.1 K/mm3 (0.0-0.8) H 05/29/17 05:33 Eosinophils # (Manual) 0.8 K/mm3 (0.0-0.4) H 05/29/17 05:33 Basophils # (Manual) 0.0 K/mm3 (0.0-0.1) 05/29/17 05:33 Metamyelocytes # 0.0 K/mm3 05/29/17 05:33 Myelocytes # 0.0 K/mm3 05/29/17 05:33 Promyelocytes # 0.0 K/mm3 05/29/17 05:33 Blast Cells # 0.0 K/mm3 05/29/17 05:33 WBC Morphology Not Reportable 05/29/17 05:33 Hypersegmented Neuts Not Reportable 05/29/17 05:33 Hyposegmented Neuts Not Reportable 05/29/17 05:33 Hypogranular Neuts Not Reportable 05/29/17 05:33 Smudge Cells Not Reportable 05/29/17 05:33 Toxic Granulation Not Reportable 05/29/17 05:33 Toxic Vacuolation Not Reportable 05/29/17 05:33 Dohle Bodies Not Reportable 05/29/17 05:33 Pelger-Huet Anomaly Not Reportable 05/29/17 05:33 Romina Rods Not Reportable 05/29/17 05:33 Platelet Estimate Appears normal 05/29/17 05:33 Clumped Platelets Not Reportable 05/29/17 05:33 Plt Clumps, EDTA Not Reportable 05/29/17 05:33 Large Platelets Not Reportable 05/29/17 05:33 Giant Platelets Not Reportable 05/29/17 05:33 Platelet Satelliting Not Reportable 05/29/17 05:33 Plt Morphology Comment Not Reportable 05/29/17 05:33 RBC Morphology Normal 05/29/17 05:33 Dimorphic RBCs Not Reportable 05/29/17 05:33 Polychromasia Not Reportable 05/29/17 05:33 Hypochromasia Not Reportable 05/29/17 05:33 Poikilocytosis Not Reportable 05/29/17 05:33 Anisocytosis Not Reportable 05/29/17 05:33 Microcytosis Not Reportable 05/29/17 05:33 Macrocytosis Not Reportable 05/29/17 05:33 Spherocytes Not Reportable 05/29/17 05:33 Pappenheimer Bodies Not Reportable 05/29/17 05:33 Sickle Cells Not Reportable 05/29/17 05:33 Target Cells Not Reportable 05/29/17 05:33 Tear Drop Cells Not Reportable 05/29/17 05:33 Ovalocytes Not Reportable 05/29/17 05:33 Helmet Cells Not Reportable 05/29/17 05:33 [place] Bodies Not Reportable 05/29/17 05:33 Wykoff Rings Not Reportable 05/29/17 05:33 [place] Cells Not Reportable 05/29/17 05:33 Bite Cells Not Reportable 05/29/17 05:33 Crenated Cell Not Reportable 05/29/17 05:33 Elliptocytes Not Reportable 05/29/17 05:33 Acanthocytes (Spur) Not Reportable 05/29/17 05:33 Rouleaux Not Reportable 05/29/17 05:33 Hemoglobin C Crystals Not Reportable 05/29/17 05:33 Schistocytes Not Reportable 05/29/17 05:33 Malaria parasites Not Reportable 05/29/17 05:33 Bob Bodies Not Reportable 05/29/17 05:33 Hem Pathologist Commnt No 05/29/17 05:33 PT 16.0 Sec. (12.2-14.9) H 05/21/17 06:27 INR 1.21 (0.87-1.13) H 05/21/17 06:27 Sodium 135 mmol/L (137-145) L 05/29/17 05:33 Potassium 4.2 mmol/L (3.6-5.0) 05/29/17 05:33 Chloride 94.6 mmol/L (98-107) L 05/29/17 05:33 Carbon Dioxide 24 mmol/L (22-30) 05/29/17 05:33 Anion Gap 21 mmol/L 05/29/17 05:33 BUN 47 mg/dL (9-20) H 05/29/17 05:33 Creatinine 3.9 mg/dL (0.8-1.5) H 05/29/17 05:33 Estimated GFR 18 ml/min 05/29/17 05:33 BUN/Creatinine Ratio 12 % 05/29/17 05:33 Glucose 265 mg/dL (75-100) H 05/29/17 05:33 POC Glucose 247 (70-105) H 05/30/17 22:10 Hemoglobin A1c 11.2 % (4-6) H 05/28/17 05:34 Lactic Acid 1.70 mmol/L (0.7-2.0) 05/21/17 15:16 Calcium 7.5 mg/dL (8.4-10.2) L 05/29/17 05:33 Phosphorus 7.00 mg/dL (2.5-4.5) H 05/21/17 06:27 Magnesium 1.90 mg/dL (1.7-2.3) 05/22/17 05:03 Total Bilirubin 0.20 mg/dL (0.1-1.2) 05/23/17 06:32 AST 14 units/L (5-40) 05/23/17 06:32 ALT 11 units/L (7-56) 05/23/17 06:32 Alkaline Phosphatase 61 units/L (35-129) 05/23/17 06:32 Total Creatine Kinase 122 units/L (55-170) 05/21/17 06:27 CK-MB (CK-2) 4.4 ng/mL (0.0-4.0) H 05/21/17 06:27 CK-MB (CK-2) Rel Index 3.6 (0-4) 05/21/17 06:27 Troponin T 0.113 ng/mL (0.00-0.029) H* 05/21/17 06:27 NT-Pro-B Natriuret Pep 4670 pg/mL (0-900) H 05/19/17 17:24 Total Protein 6.1 g/dL (6.3-8.2) L 05/23/17 06:32 Albumin 1.9 g/dL (3.9-5) L 05/23/17 06:32 Albumin/Globulin Ratio 0.5 % 05/23/17 06:32 Triglycerides 160 mg/dL (2-149) H 05/19/17 17:24 Cholesterol 151 mg/dL (50-199) 05/19/17 17:24 LDL Cholesterol Direct 93 mg/dL (50-130) 05/19/17 17:24 HDL Cholesterol 26 mg/dL (40-59) L 05/19/17 17:24 Cholesterol/HDL Ratio 5.80 % 05/19/17 17:24 TSH 1.390 mlU/mL (0.270-4.200) 05/20/17 15:28 Free T4 0.95 ng/dL (0.76-1.46) 05/20/17 15:28 PTH Intact 370.6 pg/mL (15-65) H 05/21/17 06:27 Urine Color Red (Yellow) 05/19/17 20:12 Urine Turbidity Turbid (Clear) 05/19/17 20:12 Urine pH 8.0 (5.0-7.0) H 05/19/17 20:12 Ur Specific [place] 1.018 (1.003-1.030) 05/19/17 20:12 Urine Protein 100 mg/dl mg/dL (Negative) 05/19/17 20:12 Urine Glucose (UA) Neg mg/dL (Negative) 05/19/17 20:12 Urine Ketones Neg mg/dL (Negative) 05/19/17 20:12 Urine Blood Lg (Negative) 05/19/17 20:12 Urine Nitrite Neg (Negative) 05/19/17 20:12 Urine Bilirubin Neg (Negative) 05/19/17 20:12 Urine Urobilinogen < 2.0 mg/dL (<2.0) 05/19/17 20:12 Ur Leukocyte Esterase Mod (Negative) 05/19/17 20:12 Urine WBC (Auto) > 182.0 /HPF (0.0-6.0) H 05/19/17 20:12 Urine RBC (Auto) > 182.0 /HPF (0.0-6.0) 05/19/17 20:12 Urine Mucus 3+ /HPF 05/19/17 20:12 Urine Creatinine < 4.2 mg/dL (0.1-20.0) 05/19/17 20:12 Urine Sodium 127 mmol/L 05/19/17 20:12 RENY Screen Negative (Negative) 05/20/17 05:52 Proteinase 3 (PR3) Ab <1.0 AI (<1.0) 05/20/17 05:52 Myeloperoxidase Ab <1.0 AI (<1.0) 05/20/17 05:52 Complement C3 113 mg/dL () 05/20/17 05:52 Complement C4 20 mg/dL () 05/20/17 05:52 Hepatitis A IgM Ab Non-reactive (NonReactive) 05/22/17 18:01 Hep Bs Antigen Non-reactive (Negative) 05/22/17 18:01 Hep B Core IgM Ab Non-reactive (NonReactive) 05/22/17 18:01 Hepatitis C Antibody Non-reactive (NonReactive) 05/22/17 18:01
[2017-06-01 06:41] LABS: Calcium 7.3 mg/dL (8.4-10.2)
[2017-06-01] MEDS: HumaLOG SUB-Q SCH ×4 (08:00→21:28)
[2017-06-01] MEDS: LOPRESSOR PO SCH ×2 (09:02→21:28)
[2017-06-01] MEDS: CORDARONE PO SCH ×2 (09:11→21:27)
[2017-06-01] MEDS ORDERED: VERSED ONE (11:02)
[2017-06-01] MEDS ORDERED: XYLOCAINE 1%/ EPI 1:100,000 INFILTRATI ONE (11:02)
[2017-06-01] MEDS ORDERED: SUBLIMAZE ONE (11:02)
[2017-06-01] MEDS ORDERED: HEPARIN/NS 5000 UNIT/500ML(CATH LAB) 500 ML IR ONE (11:02)
[2017-06-01] MEDS ORDERED: NACL 0.9% 250ML 250 ML ONE (11:03)
--- NOTE | 2017-06-01 11:32 | Progress Note ---
Assessment and Plan - Patient Problems (1) Acute renal failure superimposed on chronic kidney disease Current Visit: Yes Status: Acute Plan to address problem: possible progression of CKD to end-stage renal disease. So far no significant recovery of renal function seen. Outpatient dialysis has been arranged at [facility]. Patient will get AV fistula placement as an Out Patient when infection issues resolved. for permcath today. Case management working on placement at subacute rehabilitation. (2) Obstructive uropathy Current Visit: Yes Status: Acute Plan to address problem: Status post Valle catheter changed by urology. Urology follow-up for hematuria (3) Sepsis due to urinary tract infection Current Visit: Yes Status: Acute Plan to address problem: CT suggests gas-forming urinary tract infection. Continue antibiotics and follow up (4) Type 2 diabetes mellitus with diabetic nephropathy Current Visit: Yes Status: Acute Plan to address problem: Blood sugar management by primary attending (5) Hypertensive chronic kidney disease with stage 5 chronic kidney disease or end stage renal disease Current Visit: Yes Status: Acute Plan to address problem: monitor BP on current meds (6) Metabolic acidosis Current Visit: Yes Status: Acute Plan to address problem: Improving with dialysis. (7) Metabolic encephalopathy Current Visit: Yes Status: Acute Plan to address problem: Improving with dialysis. 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 Objective - Vital Signs Vital signs: Vital Signs - 12hr 05/31/17 06/01/17 06/01/17 23:53 04:24 08:46 Temperature 98.5 F 98.1 F Pulse Rate 63 62 69 Respiratory 18 18 Rate Blood Pressure 136/61 153/64 Blood Pressure [Left] O2 Sat by Pulse 98 98 98 Oximetry 06/01/17 06/01/17 06/01/17 09:01 09:02 09:31 Temperature 98.1 F Pulse Rate 68 69 Respiratory 18 Rate Blood Pressure Blood Pressure 133/59 137/59 [Left] O2 Sat by Pulse 96 Oximetry 06/01/17 10:25 Temperature 98.1 F Pulse Rate 61 Respiratory 17 Rate Blood Pressure Blood Pressure 132/62 [Left] O2 Sat by Pulse 97 Oximetry - General Appearance General appearance: well-developed, well-nourished, appears stated age EENT: ATNC, PERRL, mucous membranes moist Neck: no JVD Respiratory: Present: Clear to Ascultation Cardiology: regular, S1S2 Gastrointestinal: normoactive bowel sounds Integumentary: no rash, other (no edema ) Neurologic: no focal deficit, alert and oriented x3, strength 5/5, CN 3-12 intact Psychiatric: mood/affect appropriate, cooperative - Lab 05/29/17 05:33 06/01/17 05:40 Most recent lab results Calcium 7.3 mg/dL (8.4-10.2) L 06/01/17 05:40 Phosphorus 7.00 mg/dL (2.5-4.5) H 05/21/17 06:27 Magnesium 1.90 mg/dL (1.7-2.3) 05/22/17 05:03 Urine Creatinine < 4.2 mg/dL (0.1-20.0) 05/19/17 20:12 Urine Sodium 127 mmol/L 05/19/17 20:12
[2017-06-01] MEDS: HEPARIN 10,000 UNITS/10 ML ONE ×2 (11:52→11:53)
--- NOTE | 2017-06-01 12:49 | Operative Report ---
Operative Report Operative Report: Procedure: 1. Right internal jugular tunneled dialysis catheter placement 2. Right internal jugular vein temporary dialysis catheter removal Date: 06/01/2017 Physician: Krystal Benjamin MD Indication: 82-year-old male with end stage renal disease, in need of dialysis. Technique: The patient was placed in the supine position and prepped and draped in the usual sterile fashion. A timeout was performed. Local anesthetic was administered. The pre-existing temporary dialysis catheter was removed over an 035 wire, which was advanced into the IVC. Attention was then turned to the right chest wall. An appropriate catheter exit site was chosen, and local anesthetic was again administered. A skin lavon was made, and the catheter was tunneled under the skin from the exit site to the venotomy. After serial tissue dilation, the dialysis catheter was advanced through a peel- away sheath, until the tip was in the right atrium. Vacuum aspiration and flushing was performed. Each lumen was instilled with heparin. The catheter was secured to the skin with 2-0 Ethilon suture. The venotomy site was closed with 4-0 Monocryl , sterile dressings were placed, and the patient was transported from the procedure area in stable condition. Findings: 1. There is successful exchange of a temporary dialysis catheter to a turnneled MedComp 23cm dialysis catheter via the right internal jugular vein. 2. Each lumen flushes and aspirates briskly. 3. Positioning of the catheter tip within the right atrium is confirmed by fluoroscopy. The catheter is ready for use.
[2017-06-01] MEDS: PERCOCET 5/325 PO PRN (15:23)
--- NOTE | 2017-06-01 15:51 | Progress Note ---
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 Dale evaluated the patient, CT abdomen and pelvis, stable for DC , follow- up urology --Atrial fibrillation with RVR: Now rate controlled s/p amio drip, on oral amio and lopressor No chronic anticoagulation at this point due to gross hematuria per Cardiology, start Eliquis when stable --Complicated -UTI with right Hydronephrosis . Valle catheter changed. Urology following. CT of the abdomen showed gas forming infection in there urinary tract with moderate hydroureter in the left and mild hydroureter on the right. Significantly improved --Toxic metabolic encephalopathy: Uremic encephalopathy Significantly improved --Abnormal cardiac enzymes; now stable --BPH; urology extensively evaluated, continuous Valle catheterization and supportive care --Hypertension. Stable on medications --Moderate pulmonary hypertension. Stable --Diabetes mellitus type II. Accu-Cheks and slight scale insulin. --DVT prophylaxis; SCDs, a pharmacologic anticoagulation in view of gross hematuria --Full CODE STATUS DC planning ;SNF placement , outpatient HD chair scheduling DC planning. Case management Plan of care reviewed with the patient, his nurse and the case management Disposition; DC that and SNF and outpatient HD he set up History Interval history: Patient seen and examined medical records reviewed Patient underwent right internal jugular tunnel dialysis catheter placement After removing the right internal jugular vein temporary dialysis catheter removal Patient tolerated the procedure well No new complaints Mild brown tinged urine in the urine bag, no gross hematuria Patient is alert awake oriented 3 not in acute distress Vital signs reviewed Hospitalist Physical - Constitutional Vitals: Temp Pulse Resp BP Pulse Ox 98.1 F 61 17 132/62 97 06/01/17 10:25 06/01/17 10:25 06/01/17 10:25 06/01/17 10:25 06/01/17 10:25 General appearance: Present: no acute distress, well-nourished - EENT Eyes: Present: PERRL, EOM intact - Neck Neck: Present: supple, normal ROM - Respiratory Respiratory effort: normal Respiratory: bilateral: diminished, negative: rales, rhonchi, wheezing - Cardiovascular Rhythm: regular Heart Sounds: Present: S1 & S2 - Extremities Extremities: no ischemia, No edema - Abdominal General gastrointestinal: soft, non-tender, non-distended, normal bowel sounds - Integumentary Integumentary: Present: clear, warm - Psychiatric Psychiatric: appropriate mood/affect, cooperative - Neurologic Neurologic: CNII-XII intact, moves all extremities Results - Labs CBC & Chem 7: 05/29/17 05:33 06/01/17 05:40 Labs: Laboratory Last Values WBC 15.2 K/mm3 (4.5-11.0) H 05/29/17 05:33 RBC 3.28 M/mm3 (3.65-5.03) L 05/29/17 05:33 Hgb 9.6 gm/dl (11.8-15.2) L 05/29/17 05:33 Hct 28.8 % (35.5-45.6) L 05/29/17 05:33 MCV 88 fl (84-94) 05/29/17 05:33 MCH 29 pg (28-32) 05/29/17 05:33 MCHC 33 % (32-34) 05/29/17 05:33 RDW 14.1 % (13.2-15.2) 05/29/17 05:33 Plt Count 150 K/mm3 (140-440) 05/29/17 05:33 Mason % (Auto) Power Builder Developer 05/29/17 05:33 Add Manual Diff Complete 05/29/17 05:33 Total Counted 100 05/29/17 05:33 Seg Neuts % (Manual) 75.0 % (40.0-70.0) H 05/29/17 05:33 Band Neutrophils % 0 % 05/29/17 05:33 Lymphocytes % (Manual) 13.0 % (13.4-35.0) L 05/29/17 05:33 Reactive Lymphs % (Man) 0 % 05/29/17 05:33 Monocytes % (Manual) 7.0 % (0.0-7.3) 05/29/17 05:33 Eosinophils % (Manual) 5.0 % (0.0-4.3) H 05/29/17 05:33 Basophils % (Manual) 0 % (0.0-1.8) 05/29/17 05:33 Metamyelocytes % 0 % 05/29/17 05:33 Myelocytes % 0 % 05/29/17 05:33 Promyelocytes % 0 % 05/29/17 05:33 Blast Cells % 0 % 05/29/17 05:33 Nucleated RBC % Not Reportable 05/29/17 05:33 Seg Neutrophils # Man 11.4 K/mm3 (1.8-7.7) H 05/29/17 05:33 Band Neutrophils # 0.0 K/mm3 05/29/17 05:33 Lymphocytes # (Manual) 2.0 K/mm3 (1.2-5.4) 05/29/17 05:33 Abs React Lymphs (Man) 0.0 K/mm3 05/29/17 05:33 Monocytes # (Manual) 1.1 K/mm3 (0.0-0.8) H 05/29/17 05:33 Eosinophils # (Manual) 0.8 K/mm3 (0.0-0.4) H 05/29/17 05:33 Basophils # (Manual) 0.0 K/mm3 (0.0-0.1) 05/29/17 05:33 Metamyelocytes # 0.0 K/mm3 05/29/17 05:33 Myelocytes # 0.0 K/mm3 05/29/17 05:33 Promyelocytes # 0.0 K/mm3 05/29/17 05:33 Blast Cells # 0.0 K/mm3 05/29/17 05:33 WBC Morphology Not Reportable 05/29/17 05:33 Hypersegmented Neuts Not Reportable 05/29/17 05:33 Hyposegmented Neuts Not Reportable 05/29/17 05:33 Hypogranular Neuts Not Reportable 05/29/17 05:33 Smudge Cells Not Reportable 05/29/17 05:33 Toxic Granulation Not Reportable 05/29/17 05:33 Toxic Vacuolation Not Reportable 05/29/17 05:33 Dohle Bodies Not Reportable 05/29/17 05:33 Pelger-Huet Anomaly Not Reportable 05/29/17 05:33 Romina Rods Not Reportable 05/29/17 05:33 Platelet Estimate Appears normal 05/29/17 05:33 Clumped Platelets Not Reportable 05/29/17 05:33 Plt Clumps, EDTA Not Reportable 05/29/17 05:33 Large Platelets Not Reportable 05/29/17 05:33 Giant Platelets Not Reportable 05/29/17 05:33 Platelet Satelliting Not Reportable 05/29/17 05:33 Plt Morphology Comment Not Reportable 05/29/17 05:33 RBC Morphology Normal 05/29/17 05:33 Dimorphic RBCs Not Reportable 05/29/17 05:33 Polychromasia Not Reportable 05/29/17 05:33 Hypochromasia Not Reportable 05/29/17 05:33 Poikilocytosis Not Reportable 05/29/17 05:33 Anisocytosis Not Reportable 05/29/17 05:33 Microcytosis Not Reportable 05/29/17 05:33 Macrocytosis Not Reportable 05/29/17 05:33 Spherocytes Not Reportable 05/29/17 05:33 Pappenheimer Bodies Not Reportable 05/29/17 05:33 Sickle Cells Not Reportable 05/29/17 05:33 Target Cells Not Reportable 05/29/17 05:33 Tear Drop Cells Not Reportable 05/29/17 05:33 Ovalocytes Not Reportable 05/29/17 05:33 Helmet Cells Not Reportable 05/29/17 05:33 [place] Bodies Not Reportable 05/29/17 05:33 [place] Rings Not Reportable 05/29/17 05:33 [place] Cells Not Reportable 05/29/17 05:33 Bite Cells Not Reportable 05/29/17 05:33 Crenated Cell Not Reportable 05/29/17 05:33 Elliptocytes Not Reportable 05/29/17 05:33 Acanthocytes (Spur) Not Reportable 05/29/17 05:33 Rouleaux Not Reportable 05/29/17 05:33 Hemoglobin C Crystals Not Reportable 05/29/17 05:33 Schistocytes Not Reportable 05/29/17 05:33 Malaria parasites Not Reportable 05/29/17 05:33 Bob Bodies Not Reportable 05/29/17 05:33 Hem Pathologist Commnt No 05/29/17 05:33 PT 16.0 Sec. (12.2-14.9) H 05/21/17 06:27 INR 1.21 (0.87-1.13) H 05/21/17 06:27 Sodium 137 mmol/L (137-145) 06/01/17 05:40 Potassium 3.9 mmol/L (3.6-5.0) 06/01/17 05:40 Chloride 99.6 mmol/L (98-107) 06/01/17 05:40 Carbon Dioxide 24 mmol/L (22-30) 06/01/17 05:40 Anion Gap 17 mmol/L 06/01/17 05:40 BUN 40 mg/dL (9-20) H 06/01/17 05:40 Creatinine 4.2 mg/dL (0.8-1.5) H 06/01/17 05:40 Estimated GFR 16 ml/min 06/01/17 05:40 BUN/Creatinine Ratio 10 % 06/01/17 05:40 Glucose 85 mg/dL (75-100) 06/01/17 05:40 POC Glucose 96 (70-105) 06/01/17 08:55 Hemoglobin A1c 11.2 % (4-6) H 05/28/17 05:34 Lactic Acid 1.70 mmol/L (0.7-2.0) 05/21/17 15:16 Calcium 7.3 mg/dL (8.4-10.2) L 06/01/17 05:40 Phosphorus 7.00 mg/dL (2.5-4.5) H 05/21/17 06:27 Magnesium 1.90 mg/dL (1.7-2.3) 05/22/17 05:03 Total Bilirubin 0.20 mg/dL (0.1-1.2) 05/23/17 06:32 AST 14 units/L (5-40) 05/23/17 06:32 ALT 11 units/L (7-56) 05/23/17 06:32 Alkaline Phosphatase 61 units/L (35-129) 05/23/17 06:32 Total Creatine Kinase 122 units/L (55-170) 05/21/17 06:27 CK-MB (CK-2) 4.4 ng/mL (0.0-4.0) H 05/21/17 06:27 CK-MB (CK-2) Rel Index 3.6 (0-4) 05/21/17 06:27 Troponin T 0.113 ng/mL (0.00-0.029) H* 05/21/17 06:27 NT-Pro-B Natriuret Pep 4670 pg/mL (0-900) H 05/19/17 17:24 Total Protein 6.1 g/dL (6.3-8.2) L 05/23/17 06:32 Albumin 1.9 g/dL (3.9-5) L 05/23/17 06:32 Albumin/Globulin Ratio 0.5 % 05/23/17 06:32 Triglycerides 160 mg/dL (2-149) H 05/19/17 17:24 Cholesterol 151 mg/dL (50-199) 05/19/17 17:24 LDL Cholesterol Direct 93 mg/dL (50-130) 05/19/17 17:24 HDL Cholesterol 26 mg/dL (40-59) L 05/19/17 17:24 Cholesterol/HDL Ratio 5.80 % 05/19/17 17:24 TSH 1.390 mlU/mL (0.270-4.200) 05/20/17 15:28 Free T4 0.95 ng/dL (0.76-1.46) 05/20/17 15:28 PTH Intact 370.6 pg/mL (15-65) H 05/21/17 06:27 Urine Color Red (Yellow) 05/19/17 20:12 Urine Turbidity Turbid (Clear) 05/19/17 20:12 Urine pH 8.0 (5.0-7.0) H 05/19/17 20:12 Ur Specific [place] 1.018 (1.003-1.030) 05/19/17 20:12 Urine Protein 100 mg/dl mg/dL (Negative) 05/19/17 20:12 Urine Glucose (UA) Neg mg/dL (Negative) 05/19/17 20:12 Urine Ketones Neg mg/dL (Negative) 05/19/17 20:12 Urine Blood Lg (Negative) 05/19/17 20:12 Urine Nitrite Neg (Negative) 05/19/17 20:12 Urine Bilirubin Neg (Negative) 05/19/17 20:12 Urine Urobilinogen < 2.0 mg/dL (<2.0) 05/19/17 20:12 Ur Leukocyte Esterase Mod (Negative) 05/19/17 20:12 Urine WBC (Auto) > 182.0 /HPF (0.0-6.0) H 05/19/17 20:12 Urine RBC (Auto) > 182.0 /HPF (0.0-6.0) 05/19/17 20:12 Urine Mucus 3+ /HPF 05/19/17 20:12 Urine Creatinine < 4.2 mg/dL (0.1-20.0) 05/19/17 20:12 Urine Sodium 127 mmol/L 05/19/17 20:12 RENY Screen Negative (Negative) 05/20/17 05:52 Proteinase 3 (PR3) Ab <1.0 AI (<1.0) 05/20/17 05:52 Myeloperoxidase Ab <1.0 AI (<1.0) 05/20/17 05:52 Complement C3 113 mg/dL () 05/20/17 05:52 Complement C4 20 mg/dL () 05/20/17 05:52 Hepatitis A IgM Ab Non-reactive (NonReactive) 05/22/17 18:01 Hep Bs Antigen Non-reactive (Negative) 05/22/17 18:01 Hep B Core IgM Ab Non-reactive (NonReactive) 05/22/17 18:01 Hepatitis C Antibody Non-reactive (NonReactive) 05/22/17 18:01
[2017-06-02 05:50] LABS: Basophils # (Auto) 0.1 K/mm3 (0.0-0.1); Basophils % (Auto) 1.2 % (0.0-1.8); Eosinophils # (Auto) 0.2 K/mm3 (0.0-0.4); Eosinophils % (Auto) 3.3 % (0.0-4.3); Hematocrit 23.8 % (35.5-45.6); Hemoglobin 7.9 gm/dl (11.8-15.2); Lymphocytes # (Auto) 2.1 K/mm3 (1.2-5.4); Lymphocytes % (Auto) 29.2 % (13.4-35.0); Mean Corpuscular HGB Conc 33 % (32-34); Mean Corpuscular Hemoglobin 30 pg (28-32); Mean Corpuscular Volume 90 fl (84-94); Monocytes # (Auto) 0.6 K/mm3 (0.0-0.8); Monocytes % (Auto) 8.6 % (0.0-7.3); Platelet Count 205 K/mm3 (140-440); Red Blood Count 2.65 M/mm3 (3.65-5.03); Red Cell Distribution Width 15.2 % (13.2-15.2)
[2017-06-02 06:16] LABS: Calcium 7.4 mg/dL (8.4-10.2)
[2017-06-02] MEDS: HumaLOG SUB-Q SCH ×2 (10:58→11:30)
[2017-06-02] MEDS: CORDARONE PO SCH (10:59)
[2017-06-02] MEDS: LOPRESSOR PO SCH (11:00)
--- NOTE | 2017-06-02 11:22 | Progress Note ---
Assessment and Plan - Patient Problems (1) Acute renal failure superimposed on chronic kidney disease Current Visit: Yes Status: Acute Plan to address problem: possible progression of CKD to end-stage renal disease. So far no significant recovery of renal function seen. Outpatient dialysis has been arranged at [facility]. Patient will get AV fistula placement as an Out Patient when infection issues resolved. s/p permcath. Case management working on placement at subacute rehabilitation. stable for discharge from renal stand point (2) Obstructive uropathy Current Visit: Yes Status: Acute Plan to address problem: Status post Valle catheter changed by urology. Urology follow-up for hematuria (3) Sepsis due to urinary tract infection Current Visit: Yes Status: Acute Plan to address problem: CT suggests gas-forming urinary tract infection. Continue antibiotics and follow up (4) Type 2 diabetes mellitus with diabetic nephropathy Current Visit: Yes Status: Acute Plan to address problem: Blood sugar management by primary attending (5) Hypertensive chronic kidney disease with stage 5 chronic kidney disease or end stage renal disease Current Visit: Yes Status: Acute Plan to address problem: monitor BP on current meds (6) Metabolic acidosis Current Visit: Yes Status: Acute Plan to address problem: Improving with dialysis. (7) Metabolic encephalopathy Current Visit: Yes Status: Acute Plan to address problem: Improving with dialysis. plant health manager to arrange placement at subacute rehabilitation Subjective Principal diagnosis: sepsis, ARF, Afib Interval history: Pt seen and examined during HD, awake, weak, in no acute distress, denies fever , chills, n/v/d, SOB, CP, palpitations. Objective - Vital Signs Vital signs: Vital Signs - 12hr 06/02/17 06/02/17 06/02/17 00:31 05:09 10:30 Temperature 98.2 F 97.6 F 98 F Pulse Rate 84 94 H 59 L Respiratory 18 20 16 Rate Blood Pressure 158/77 Blood Pressure 110/68 128/64 [Left] O2 Sat by Pulse 100 94 Oximetry 06/02/17 06/02/17 10:45 11:03 Temperature Pulse Rate 60 58 L Respiratory Rate Blood Pressure 161/80 144/79 Blood Pressure [Left] O2 Sat by Pulse Oximetry - General Appearance General appearance: well-developed, well-nourished, appears stated age EENT: ATNC, PERRL, mucous membranes moist Neck: no JVD Respiratory: Present: Clear to Ascultation Cardiology: regular, S1S2 Gastrointestinal: normoactive bowel sounds Integumentary: no rash, other (no edema ) Neurologic: no focal deficit, alert and oriented x3, strength 5/5, CN 3-12 intact Psychiatric: mood/affect appropriate, cooperative - Lab 06/02/17 05:08 06/02/17 05:08 Most recent lab results Calcium 7.4 mg/dL (8.4-10.2) L 06/02/17 05:08 Phosphorus 7.00 mg/dL (2.5-4.5) H 05/21/17 06:27 Magnesium 1.90 mg/dL (1.7-2.3) 05/22/17 05:03 Urine Creatinine < 4.2 mg/dL (0.1-20.0) 05/19/17 20:12 Urine Sodium 127 mmol/L 05/19/17 20:12
[2017-06-02] MEDS ORDERED: LEVAQUIN PO SCH (12:00)
[2017-06-02] MEDS: HEPARIN IV PRN (13:01)
[2017-06-02] MEDS ORDERED: NACL 0.9 (PRIMING MACHINE ONLY DIALYSIS) MC ONE (13:01)
[2017-06-02 13:57] VITALS: BP 116/53
--- NOTE | 2017-06-02 15:28 | Discharge Summary ---
Providers - Providers Date of Admission: 05/19/17 22:15 Date of discharge: 06/02/17 Attending physician: ASH PHILLIPS MD 05/19/17 18:39 Consult to Physician [CONS] Stat Consulting Provider: STACEY HOOPER Reason For Exam: acute renal failure Place consult to:: Dr. Hooper Notified:: yes 05/20/17 07:27 Consult to Physician [CONS] Routine Consulting Provider: JOSE RAFAEL DALE Reason For Exam: Hydronephrosis. Place consult to:: Dr. Dale Notified:: Bettie GARIBAY Time called:: 08:43 Comment:: made aware that consult is physician to physician.He will call ur 05/21/17 10:19 Consult to Physician [CONS] Routine Consulting Provider: AQUILINO KYLE Reason For Exam: UTI, ACUTE RENAL FAILURE Place consult to:: RENAL Notified:: Y Time called:: 10:21 Comment:: CONSULT CALLED TO DR KYLE PER DR HART 05/21/17 18:24 Consult to Physician [CONS] Routine Consulting Provider: ONIEL BENÍTEZ Reason For Exam: sepsis Place consult to:: Dr Benítez - ESTEE, Nabila Pena Notified:: PLEASE CALL MD IN AM Was contact made?: No 05/22/17 08:20 Consult to Interventional Radiology [CONS] Routine Consulting Provider: JOSE CHENG Reason For Exam: RAMOS on CKD, vascath placement Place consult to:: VASCULAR Notified:: Y Comment:: BEN AWAREOF CONSULT AT 0916 05/22/17 13:30 Consult to Physician [CONS] Routine Consulting Provider: ROXANE ALDRIDGE Reason For Exam: sepsis Place consult to:: althea Notified:: y Phone number called:: [phone] Was contact made?: Yes If yes, spoke with:: dr benítez Time called:: 13:36 Comment:: dr benítez wants to speak with dr stoner concerning consult 05/23/17 10:21 Consult to Case Management [CONS] Routine Services Needed at Discharge: Other Notified:: POLE INCISOR OPERATOR Additional Physician Instructions: Arrange outpatient dialysis at [facility] 05/25/17 09:19 Consult to Case Management [CONS] Routine Services Needed at Discharge: Other Notified:: POLE INCISOR OPERATOR Comment:: Please arrange placement at subacute rehabilitation Additional Physician Instructions: Please arrange placement at subacute rehabilitation 05/25/17 10:37 Physical Therapy Evaluation and Treat [CONS] Routine Comment: Reason For Exam: Eval and treat, may need subacute placement 05/25/17 10:41 Occupational Therapy Evaluate and Treat [CONS] Routine Comment: Reason For Exam: Eval/treat OT possible subacute placement Primary care physician: [employer] GUNNER Hospitalization Condition: Stable Disposition: [id number]/[place]-[id number] INPT REHAB FACILITY Time spent for discharge: 32 minutes Exam - Constitutional Vitals: Temp Pulse Resp BP Pulse Ox 98.0 F 54 L 16 116/53 94 06/02/17 13:55 06/02/17 13:55 06/02/17 13:55 06/02/17 13:55 06/02/17 05:09 Plan Follow up with: PRIMARY CARE,MD [Primary Care Provider] - 3-5 Days JEEVAN WOODWARD NP [Advanced Practice Nurse] - 14 Days Prescriptions: Levofloxacin [Levaquin TAB] 500 mg PO Q48H #3 tablet
[2017-06-02] MEDS: PERCOCET 5/325 PO PRN (16:30)
== END 2017-06-02 18:15 | DRG 698 ==
LOC: ED 16:10 → 4A 22:15
PROVIDERS: ADMIT Internal Medicine; ATTEND Internal Medicine
PROC: 06PYX3Z Removal of Infusion Device from Lower Vein, External Approach (ICD-10-PCS; principal; 2017-05-22)
PROC: 02H633Z Insertion of Infusion Device into Right Atrium, Percutaneous Approach (ICD-10-PCS; principal; 2017-05-22)
PROC: 06H033Z Insertion of Infusion Device into Inferior Vena Cava, Percutaneous Approach (ICD-10-PCS; principal; 2017-05-22)
PROC: 5A1D70Z Performance of Urinary Filtration, Intermittent, Less than 6 Hours Per Day (ICD-10-PCS; 2017-05-22)
PROC: 5A1D70Z Performance of Urinary Filtration, Intermittent, Less than 6 Hours Per Day (ICD-10-PCS; 2017-05-23)
PROC: 5A1D70Z Performance of Urinary Filtration, Intermittent, Less than 6 Hours Per Day (ICD-10-PCS; 2017-05-25)
PROC: 5A1D70Z Performance of Urinary Filtration, Intermittent, Less than 6 Hours Per Day (ICD-10-PCS; 2017-05-26)
PROC: 3E0234Z Introduction of Serum, Toxoid and Vaccine into Muscle, Percutaneous Approach (ICD-10-PCS; 2017-05-27)
PROC: 5A1D70Z Performance of Urinary Filtration, Intermittent, Less than 6 Hours Per Day (ICD-10-PCS; 2017-05-28)
PROC: 5A1D70Z Performance of Urinary Filtration, Intermittent, Less than 6 Hours Per Day (ICD-10-PCS; 2017-05-30)
PROC: 0JH63XZ Insertion of Tunneled Vascular Access Device into Chest Subcutaneous Tissue and Fascia, Percutaneous Approach (ICD-10-PCS; 2017-06-01)
PROC: 5A1D70Z Performance of Urinary Filtration, Intermittent, Less than 6 Hours Per Day (ICD-10-PCS; 2017-06-02)
DX: T83.511A Infection and inflammatory reaction due to indwelling urethral catheter, initial encounter (principal); A41.9 Sepsis, unspecified organism; G92 Toxic encephalopathy; N18.6 End stage renal disease; N17.9 Acute kidney failure, unspecified; N13.30 Unspecified hydronephrosis; I48.92 Unspecified atrial flutter; E87.1 Hypo-osmolality and hyponatremia; N25.81 Secondary hyperparathyroidism of renal origin; N18.4 Chronic kidney disease, stage 4 (severe); I12.0 Hypertensive chronic kidney disease with stage 5 chronic kidney disease or end stage renal disease; N39.0 Urinary tract infection, site not specified; T83.021A Displacement of indwelling urethral catheter, initial encounter; N40.0 Benign prostatic hyperplasia without lower urinary tract symptoms; I48.0 Paroxysmal atrial fibrillation; E87.6 Hypokalemia; R33.9 Retention of urine, unspecified; I27.20 Pulmonary hypertension, unspecified; B96.20 Unspecified Escherichia coli [E. coli] as the cause of diseases classified elsewhere; E11.22 Type 2 diabetes mellitus with diabetic chronic kidney disease; E11.21 Type 2 diabetes mellitus with diabetic nephropathy; R31.0 Gross hematuria; Z23 Encounter for immunization; R31.9 Hematuria, unspecified
CPT/HCPCS: 36415; 36556; 36558; 71045; 74176; 76770; 76937; 77001; 80048; 80053; 80061; 80074; 81001; 82140; 82550; 82553; 82570; 82962; 83036; 83735; 83880; 83970; 84100; 84300; 84439; 84443; 84484; 85007; 85025; 85610; 86021; 86038; 86160; 87040; 87076; 87086; 87186; 90732; 93005; 93010; 93306; 96361; 96374; 96375; C1750; C1752; G8978-GP; G8979-GP; J0282; J0690; J0696; J1644; J1815; J2250; J2543; J3010; J3480; J7030; J7040; J7050; J7060